=== PATIENT | male | born 1975 | race Caucasian/White ===

== ENCOUNTER → 2018-03-12 07:40 | Outpatient (CLI) | payer MEDICAID, SELFPAY ==
--- NOTE | 2018-03-12 07:44 | CT_ITS ---
CT head/brain wo con HISTORY: ITS.REASON: DIZZINESS ORDERING PHYSICIAN: An Sotomayor PATIENT AGE: 42 years COMPARISON: 05/03/2011 TECHNIQUE: Axial images obtained without contrast. Brain and bone windows reviewed. All CT scans at the facility use one or more dose reduction, viz: automated exposure control, ma/kV adjustment per patient size (including targeted exams where dose is matched to indication, i.e. head), or iterative reconstruction technique. FINDINGS: No midline shift, mass effect, intracranial hemorrhage, hydrocephalus, or extra-axial fluid collection is evident. The calvarium has an unremarkable appearance. No mastoid effusion. No sinus air-fluid levels.. IMPRESSION: Negative CT head without contrast. No acute finding
--- NOTE | 2018-03-12 07:57 | CI_ITS ---
Cerebrovascular Exam Indications: 780.4 Dizziness and giddiness. IMPRESSIONS 1. The bilateral vertebral arteries are patent with normal antegrade flow. 2. Study suggests less than 20% stenosis involving the right internal carotid artery and the left internal carotid artery. 3. Difficult images. Carotid duplex study. Complete study and Doppler flow study including spectral analysis, color and humphrey scale imaging. Height: Height: 188cm. Height: 74in. Weight: Weight: 102.1kg. Weight: 224.5lb. Body mass index: BMI: 28.9kg/m^2. Body surface area: BSA: 2.33m^2. Location: Vascular laboratory. Patient status: Outpatient. Tables: Arterial flow: + +--------+--------+ Location V sys V ed + +--------+--------+ Right CCA - proximal 107cm/s 29.9cm/s + +--------+--------+ Right CCA - distal 77cm/s 33.8cm/s + +--------+--------+ Right ECA 93.7cm/s -------- + +--------+--------+ Right ICA - proximal 61.7cm/s 27.1cm/s + +--------+--------+ Right ICA - mid 64.4cm/s 36.5cm/s + +--------+--------+ Right ICA - distal 75cm/s 38.9cm/s + +--------+--------+ Right vertebral 28.3cm/s -------- + +--------+--------+ Left CCA - proximal 121cm/s 37cm/s + +--------+--------+ Left CCA - distal 93.6cm/s 37cm/s + +--------+--------+ Left ECA 76.1cm/s -------- + +--------+--------+ Left ICA - proximal 64.9cm/s 29.3cm/s + +--------+--------+ Left ICA - mid 91.5cm/s 45.4cm/s + +--------+--------+ Left ICA - distal 93.6cm/s 45.4cm/s + +--------+--------+ Left vertebral 34.6cm/s -------- + +--------+--------+ Velocity ratios: + + + + + + Right, V sys Right, V ed Left, V sys Left, V ed + + + + + + Max ICA/dist CCA 0.97 1.15 1 1.23 + + + + + + (Report amended ) Electronically signed by: Emir Marroquin [id number]
== END ==
PROVIDERS: Family Provider Nurse Practitioner Family; PCP Family Medicine; Visit Provider Family Medicine
DX: R42 Dizziness and giddiness (principal); Z72.0 Tobacco use
CPT/HCPCS: 70450; 93880

== ENCOUNTER → 2020-04-06 09:32 | Outpatient (CLI) | payer MEDICAID, SELFPAY ==
--- NOTE | 2020-04-06 | CA_ITS ---
APPROVED REPORT Exam: Exercise Treadmill Technologist: Debbie Patel, Ht: 6 ft 0 in Wt: 479 lbs BSA: 3.09 m2 HR: 64 bpm BP: 136/91 mmHg Indications: Chest pain Medical History Medications: Meclizine,,,,, ClARITin,,,,, Omepazole,,,,, Stress Test Details Test: Escobar HR Resting HR: 70 bpm Max Heart Rate (APMHR): 178 bpm Max HR Achieved: 135 bpm Target HR (85% APMHR): 151 bpm % of APMHR: 75 Recovery HR: 83 bpm BP Resting BP: 154/99 mmHg Max BP: 184/90 mmHg Recovery BP: 143.0/88.0 mmHg ECG Clinical Exercise duration: 08:39 min Highest Stage Achieved: Exercise capacity: 10.1 METs Stress ECG Conclusion Resting EKG: NSR, right axis deviation, otherwise normal Exercised 8:39 on Escobar Protocol Max HR: 133 % of PM: 75% Max BP: 184/90 MET's: 10.1 Test stopped due to SOA, fatigue Symptoms: Mild bilateral chest and shoulder discomfort with exercise Arrhythmia/Ectopy: Rare PVC ST-T changes: Allowing for motion artifact, the ST response to exercise is within normal limits Conclusion: Normal stress EKG's to the HR achieved (75% on PM). GXT only (no image) Test Summary REST . . . . . . . Sitting REST 04:07 0.0 0.0 70 . 154/ 99 . . Stage 1 01:00 10.0 1.7 82 . . . . Stage 1 02:00 10.0 1.7 88 . . . . Stage 1 03:00 10.0 1.7 91 . 165/ 94 . . Stage 2 01:00 12.0 2.5 94 . . . . Stage 2 02:00 12.0 2.5 100 . . . . Stage 2 03:00 12.0 2.5 103 . . . . Stage 3 01:00 14.0 3.4 115 . . . . Stage 3 02:00 14.0 3.4 125 . 184/ 90 . . Stage 3 02:39 14.0 3.4 133 . 184/ 90 . Stop exercise at 08:39 RECOVERY 01:00 0.0 0.0 124 . . . . RECOVERY 02:00 0.0 0.0 84 . . . . RECOVERY 03:00 0.0 0.0 91 . 167/ 94 . . RECOVERY 04:00 0.0 0.0 96 . 169/ 89 . . RECOVERY 05:00 0.0 0.0 82 . 143/ 88 . . RECOVERY 05:19 0.0 0.0 84 . 143/ 88 . . Electronically signed by : Geovanny Yanez, 04/10/2020 15:08:34
== END ==
PROVIDERS: PCP Nurse Practitioner Family; Visit Provider Nurse Practitioner Family
DX: R07.9 Chest pain, unspecified (principal)
CPT/HCPCS: 93017

== ENCOUNTER → 2020-07-06 10:08 | Outpatient (CLI) | payer MEDICAID, SELFPAY ==
--- NOTE | 2020-07-06 10:08 | MR_ITS ---
PROCEDURE: MR HEAD/BRAIN WO/W CON CLINICAL INDICATION: dizziness, gait imbalance Pt c/o vertigo and gait imbalance x 8 years that is getting worse. COMPARISON: CT HEADWO CT head/brain wo con from 03/12/2018 TECHNIQUE: Routine multiplanar multi echo sequences are performed without and with gadolinium enhancement. FINDINGS: No midline shift, mass effect, intracranial hemorrhage, or hydrocephalus is evident. The cerebellopontine angles, brainstem, and mid brain have an unremarkable appearance. There is no evidence of acute infarction. No enhancing lesions are evident. There is mild cerebellar tonsillar ectopia of approximately 4-5 mm. The 4th ventricle has an unremarkable appearance. Corpus callosum is unremarkable. The pituitary and optic chiasm appear unremarkable. The hippocampal gyri and temporal horns appear negative. There is a defect within the superior cerebellar cortex on the right. This is of questionable clinical significance and may be due to prominent sulcus. There is a 2 cm right maxillary retention cyst and mild mucosal thickening of the ethmoid sinuses. No mastoid effusion. IMPRESSION: 1. No acute intracranial findings. 2. Mild cerebellar tonsillar ectopia Other nonacute findings as described above. Dictated by: Emir Marroquin MD 07/07/2020 19:53 Emir Marroquin MD in [place] 07/07/2020 19:53
--- NOTE | 2020-07-06 10:08 | MR_ITS ---
PROCEDURE: MR ANGIO HEAD WO CON CLINICAL INDICATION: eval posterior circulation Evaluate posterior circulation. Pt c/o severe vertigo x 8 years that is getting worse. COMPARISON: MR MR HEAD/BRAIN WO/W CON from 07/06/2020 TECHNIQUE: Routine multiplanar multi echo sequences are performed without gadolinium enhancement. FINDINGS: The basilar artery is fairly small however, there is persistent circulation bilaterally with the posterior cerebral is a branching from the internal carotid arteries instead of the basilar artery. No aneurysms are evident. No major intracranial occlusive process apparent. No AVM. Single-shot MRV shows discontinuity in the inferior aspect of the superior sagittal sinus possibly artifactual in nature. IMPRESSION: 1. No acute finding MRA of the brain. 2. Persistent circulation regarding the posterior cerebrals arising from the internal carotids on both sides with resultant small basilar artery. Dictated by: Emir Marroquin MD 07/07/2020 19:59 Emir Marroquin MD in [facility] 07/07/2020 19:59
== END ==
PROVIDERS: PCP Nurse Practitioner Family; Visit Provider Specialist
DX: R42 Dizziness and giddiness (principal); R26.89 Other abnormalities of gait and mobility; R45.86 Emotional lability
CPT/HCPCS: 70544; 70553; 93225; 93226; A9576

== ENCOUNTER → 2020-07-12 07:15 | Outpatient (CLI) | payer MEDICAID, SELFPAY ==
--- NOTE | 2020-07-12 10:46 | HMH.TILT ---
Findings:: PROCEDURE: Upright tilt table test REQUESTING PROVIDER: Leslee Bocanegra MD INDICATION: Frequent and recurrent spells of dizziness and near syncope HOME MEDS: omeprazole, loratadine, meclizine, pseudoephedrine/ibuprofen, NO beta blockers PRE-TEST VS: BP 140/90, HR 68 NSR, O2Sat 96% PROCEDURE SUMMARY: Patient was prepped according to protocol then tilted into the upright position at 85 degrees. He remained in the upright position for 45 minutes with no complaints of dizziness, lightheadedness, weakness, near syncope or syncope. He denied any symptoms other than his preexisting headache got a little worse. His heart rate and blood pressure remained stable with minimal variations throughout the test. Lowest HR was 71 bpm, occurring when first placed into the upright position. Highest HR was 96, occurring after 45 minutes upright. Rhythm was normal sinus throughout. After approximately 35 minutes upright, his heart rate slowed abruptly from 96 bpm to 67 bpm. This slowing of the HR was not associated with any arrhythmia or symptoms. His O2sats remained in the mid 90s throughout. COMPLICATIONS: None CONCLUSIONS: Unremarkable Tilt Table Test
== END ==
PROVIDERS: PCP Nurse Practitioner Family; Visit Provider Specialist
DX: R42 Dizziness and giddiness (principal); R26.89 Other abnormalities of gait and mobility; R55 Syncope and collapse; R00.2 Palpitations
CPT/HCPCS: 93660

== ENCOUNTER → 2021-04-10 08:41 | Outpatient (CLI) | payer MEDICAID, SELFPAY ==
--- NOTE | 2021-04-10 08:44 | US_ITS ---
PROCEDURE: US ABDOMEN LIMITED CLINICAL INDICATION: RUQ PAIN COMPARISON: US RUQ US RUQ-(ABD LTD)1ORGAN/QUAD/FU from 01/13/2013 FINDINGS: PANCREAS: Unremarkable. No obvious mass or abnormal fluid collection. No ductal dilatation LIVER: No focal liver lesions demonstrated. Homogeneous echogenicity. No intrahepatic biliary ductal dilatation evident. There is appropriate direction of blood flow within a non dilated portal vein RIGHT KIDNEY: Unremarkable. Normal size and echogenicity. No hydronephrosis GALLBLADDER: No gallstones, gallbladder wall thickening, pericholecystic fluid, or biliary dilatation. IMPRESSION: Unremarkable limited abdominal ultrasound as detailed above disc Dictated by: Emir Marroquin MD 04/10/2021 17:02 Emir Marroquin MD in [facility] 04/10/2021 17:02
== END ==
PROVIDERS: PCP Nurse Practitioner Family; Visit Provider Nurse Practitioner Family
DX: R10.11 Right upper quadrant pain (principal)
CPT/HCPCS: 76705

== ENCOUNTER 2021-06-05 23:44 | Emergency (ER) | payer MEDICAID, SELFPAY ==
[2021-06-05 23:45] VITALS: BP 188/109; PULSE 97; RESP 24; TEMP 36.9; O2SAT 98; BMI 28.8
[2021-06-06 00:01] VITALS: BP 130/81; PULSE 74; RESP 19; O2SAT 98
--- NOTE | 2021-06-06 00:01 | CT_ITS ---
PROCEDURE INFORMATION: Exam: CT Abdomen And Pelvis Without Contrast Exam date and time: 06/06/2021 12:01 AM Age: 46 years old Clinical indication: Abdominal pain; Flank; Right; Prior surgery; Surgery type: Vasectomy; Additional info: R flank pain with n/v TECHNIQUE: Imaging protocol: Computed tomography of the abdomen and pelvis without contrast. Radiation optimization: All CT scans at this facility use at least one of these dose optimization techniques: automated exposure control; mA and/or kV adjustment per patient size (includes targeted exams where dose is matched to clinical indication); or iterative reconstruction. COMPARISON: ABDPELW/O CT ABD PELVIS W/O CONTRAST 02/02/2015 3:14 PM FINDINGS: Lungs: Peripheral wedge-shaped consolidative opacity in the right lung base. Liver: Within normal limits. Gallbladder and bile ducts: Within normal limits. Pancreas: Within normal limits. Spleen: Within normal limits. Adrenal glands: Within normal limits. Kidneys and ureters: No renal or ureteral stones. No hydronephrosis. Stomach and bowel: Within normal limits. Appendix: Appendix is normal. Intraperitoneal space: No free fluid. No pneumoperitoneum. Vasculature: Mild amount of calcified and non-calcified arterial atherosclerosis. No abdominal aortic aneurysm. Lymph nodes: No enlarged lymph nodes by CT criteria. Urinary bladder: Within normal limits. Reproductive: Vasectomy clips noted in the upper scrotum. Reproductive organs are otherwise unremarkable. Bones/joints: No acute osseous abnormality or suspicious bone lesion. Soft tissues: Unremarkable. IMPRESSION: 1. Peripheral wedge-shaped consolidative opacity in the right lung base. Findings are compatible with pulmonary infarct and raise concern for potential pulmonary embolism (indeterminate without intravenous contrast). Consider contrast-enhanced chest CTA for better evaluation. 2. No acute findings in the abdomen or pelvis.
[2021-06-06 00:05] LABS: Basophils # 0.1 K/mm3 (0-0.2); Basophils % 1.2 % (0.1-2.0); Eosinophils # 0.3 K/mm3 (0.0-0.4); Eosinophils % 2.3 % (0.1-12.0); Hematocrit 50.3 % (42.0-52.0); Hemoglobin 16.2 g/dL (14.1-18.0); Lymphocytes # 3.6 K/mm3 (0.7-4.5); Lymphocytes % 31.5 % (10-50); Mean Corpuscular HGB Conc 32.3 g/dL (31.8-35.4); Mean Corpuscular Hemoglobin 30.8 pg (27.0-31.2); Mean Corpuscular Volume 95.2 fl (80-94); Mean Platelet Volume 8.1 fl (7.4-10.4); Monocytes % 8.3 % (1.7-9.3); Neutrophils # 6.5 K/mm3 (1.8-7.8); Neutrophils % 56.7 % (37.0-80.0); Platelet Count 374 K/mm3 (142-424); Red Blood Count 5.28 M/mm3 (4.60-6.20); Red Cell Distribution Width 13.4 % (11.5-17.5); White Blood Count 11.5 K/mm3 (4.8-10.8)
[2021-06-06 00:12] LABS: Alanine Aminotransferase 29 U/L (12-78); Albumin Level 4.4 g/dl (3.5-5.0); Albumin/Globulin Ratio 1.4 (1.1-1.8); Alkaline Phosphatase 105 U/L (38-126); Amylase 80 U/L (30-110); Anion Gap 11.4 mEq/L (5-15); Aspartate Amino Transferase 28 U/L (17-59); Bilirubin,Total 0.4 mg/dl (0.2-1.3); Blood Urea Nitrogen 10 mg/dl (9-20); Calcium 9.1 mg/dl (8.4-10.2); Carbon Dioxide 30 mmol/L (22.0-30.0); Chloride 103 mmol/L (98-107); Creatinine Clearance Estimated 124 mL/min (50-200); Estimated Glomerular Filt Rate 73 ml/min (>60); GFR (African American) 88 ML/MIN (>60); Globulin 3.2 g/dL (1.3-3.2); Glucose 130 mg/dl (74-100); Lipase 120 U/L (23-300); Potassium 3.4 mmoL/L (3.5-5.1); Sodium 141 mmol/L (136-145); Total Protein,Serum 7.6 g/dl (6.3-8.2)
--- NOTE | 2021-06-06 00:17 | PC.NURSE ---
pt to ct via wheelchair
[2021-06-06 00:30] VITALS: BP 126/83; PULSE 65; O2SAT 97
[2021-06-06 00:31] LABS: Procalcitonin 0.063 ng/mL (0.0-2.0)
[2021-06-06 00:38] LABS: Erythrocyte Sedimentation Rate 14 mm/hr (0-15)
--- NOTE | 2021-06-06 00:54 | HMH.EDNVD ---
ED Disposition Clinical Impression: Pulmonary embolism and infarction Disposition: Home, Self-Care Condition on Discharge: Good Instructions: DI for Pulmonary Embolism Additional Instructions: call pcp this am and recheck if needed in the ed- take meds as directed - no tob use and call pul med in am Prescriptions: Rivaroxaban [Xarelto 15mg tablet] 15 mg PO BID #36 tab Transmission Status: Pending to [id number] Referrals: Lesley Gomez [Primary Care Provider] - Chung Mccarthy MD [Physician] - - Critical Care Critical Care Time: No Attestation: On 06/05/21, the high probability of a clinically significant, sudden or life threatening deterioration of the following system(s) required my full and direct attention, intervention and personal management. The time I documented below is in addition to time spent performing reported procedures but includes the following listed in this critical care notation. Medical Decision Making - Medical Records Medical records reviewed: Yes: I reviewed the patient's medical records. - Yobani Inquiry Pt receiving controlled substance: No Vital Signs: 06/05/21 23:45 06/06/21 00:01 06/06/21 00:30 Temperature 98.5 F Temperature Source Oral Pulse Rate 74 65 Pulse Rate [Right] 97 H Respiratory Rate 24 19 Blood Pressure 130/81 126/83 Blood Pressure [Right Arm] 188/109 H Blood Pressure Mean 111 97 Blood Pressure Mean [Right Arm] 135 Blood Pressure Source [Right Arm] Automatic Cuff 02 Sat by Pulse Oximetry 98 98 97 Oxygen Delivery Method Room Air Room Air - Lab Data Lab results reviewed: Yes: I reviewed the patient's lab results. Lab Results 06/05/21 23:56: WBC 11.5 H, RBC 5.28, Hgb 16.2, Hct 50.3, MCV 95.2 H, MCH 30.8, MCHC 32.3, RDW 13.4, Plt Count 374, MPV 8.1, Neut % (Auto) 56.7, Lymph % (Auto) 31.5, [place] % (Auto) 8.3, Eos % (Auto) 2.3, Baso % (Auto) 1.2, Neut # (Auto) 6.5, Lymph # (Auto) 3.6, [place] # (Auto) 1.0, Eos # (Auto) 0.3, Baso # (Auto) 0.1, ESR 14 06/05/21 23:56: Sodium 141, Potassium 3.4 L, Chloride 103, Carbon Dioxide 30, Anion Gap 11.4, BUN 10, Creatinine 1.10, Estimated Creat Clear 124, Estimated GFR 73, Est GFR ( Amer) 88, Glucose 130 H, Calcium 9.1, Total Bilirubin 0.4, AST 28, ALT 29, Alkaline Phosphatase 105, C-Reactive Protein 30.0 H, Total Protein 7.6, Albumin 4.4, Globulin 3.2, Albumin/Globulin Ratio 1.4, Amylase 80, Lipase 120, Procalcitonin 0.063 06/06/21 01:15: Urine Color Yellow, Urine Appearance Clear, Urine pH 6.0, Ur Specific [place] >= 1.030, Urine Protein Negative, Urine Glucose (UA) Negative, Urine Ketones Negative, Urine Blood Negative, Urine Nitrate Negative, Urine Bilirubin Negative, Urine Urobilinogen 0.2, Ur Leukocyte Esterase Negative, Urine WBC Occasional, Urine Bacteria Trace, Urine Mucus 1+ Result diagrams: 06/05/21 23:56 06/05/21 23:56 Orders (Tests/Meds): ED MEDICATIONS Generic Name Dose Route Start Last Admin Trade Name Freq PRN Reason Stop Dose Admin Sodium Chloride 1,000 mls @ 999 mls/hr 06/05/21 23:45 06/05/21 23:57 Sod Chlor 0.9% 1000ml Bag IV 06/06/21 00:45 999 mls/hr .Q1H1M MARILYNN Administration Sodium Chloride 8 ml 06/06/21 00:10 Sodium Chloride 0.9% 10ml Vial IV 07/06/21 00:09 NEEDED PRN dilute pepcid Discontinued Medications Generic Name Dose Route Start Last Admin Trade Name Freq PRN Reason Stop Dose Admin Famotidine 20 mg 06/06/21 00:10 06/06/21 00:17 Famotidine 20mg/2ml Vial IV 06/06/21 00:11 20 mg ONCE ONE Administration Iopamidol 70 ml 06/06/21 01:53 06/06/21 01:53 Iopamidol-370 (76%);100ml Bottle IV 06/06/21 01:54 70 ml ONCE ONE Administration Ketorolac Tromethamine 30 mg 06/05/21 23:54 06/05/21 23:57 Ketorolac 30mg/Ml Vial IV 06/05/21 23:55 30 mg ONCE ONE Administration Metoclopramide HCl 10 mg 06/06/21 00:10 06/06/21 00:17 Metoclopramide Hcl 10mg/2ml Vial IVP 06/06/21 00:11 10 mg ONCE ONE
--- NOTE | 2021-06-06 01:22 | CT_ITS ---
PROCEDURE INFORMATION: Exam: CTA Chest With Contrast Exam date and time: 06/06/2021 1:22 AM Age: 46 years old Clinical indication: Abnormal findings; Abnormal radiologic exam of lung or chest; Patient HX: Smoker; Additional info: Abd abd/pelv CT TECHNIQUE: Imaging protocol: Computed tomographic angiography of the chest with contrast. 3D rendering (Not supervised by radiologist): MIP and/or 3D reconstructed images were created by the technologist. Radiation optimization: All CT scans at this facility use at least one of these dose optimization techniques: automated exposure control; mA and/or kV adjustment per patient size (includes targeted exams where dose is matched to clinical indication); or iterative reconstruction. Contrast material: ISO 370; Contrast volume: 70 ml; Contrast route: INTRAVENOUS (IV); COMPARISON: CR XR CHEST 2V 06/06/2021 1:23 AM FINDINGS: Pulmonary arteries: Acute pulmonary emboli in the right lower lobe with obstructing thrombus in the right lower lobe lateral basal segmental pulmonary artery. Aorta: No aortic aneurysm. No aortic dissection. Lungs: Upper lobe predominant subpleural fibrotic changes. Diffuse ground-glass opacification is likely on account of low lung volumes/expiratory phase imaging. Few calcified pulmonary granulomata, compatible with chronic sequelae of prior granulomatous disease. No appreciable pulmonary edema. Juxtafissural 5 mm noncalcified pulmonary nodule with round morphology along the left interlobar fissure. Peripheral wedge-shaped consolidative opacity in the right lung base. Pleural spaces: No pneumothorax. No pleural effusion. Heart: No cardiomegaly. No significant pericardial effusion. No interventricular septal deviation or abnormal RV:LV ratio to suggest right heart strain. Lymph nodes: Calcified lymph nodes, compatible with chronic sequelae of prior granulomatous disease. Multiple conspicuous subcentimeter noncalcified mediastinal and hilar lymph nodes, nonspecific. No enlarged lymph nodes by CT criteria. Bones/joints: No acute fracture or malalignment. Soft tissues: Unremarkable. IMPRESSION: 1. Acute pulmonary emboli in the right lower lobe with peripheral wedge-shaped consolidation compatible with pulmonary infarct in the lateral basal segment. 2. Noncalcified 5 mm pulmonary nodule along the left interlobar fissure. Current guidelines recommend follow-up CT Chest in 6-12 months. (References: Bradley and Cyndy) REFERENCES: 1. Bradley Patel, et al. Guidelines for Management of Incidental Pulmonary Nodules Detected on CT Images: From the Fleischner Society 2017. Radiology. 2017;284(1):228-243. 2. Cyndy J, et al. Updated Fleischner Society Guidelines for Managing Incidental Pulmonary Nodules: Common Questions and Challenging Scenarios. Radiographics. 2018;38(5):0908-3821.
--- NOTE | 2021-06-06 01:22 | XR_ITS ---
PROCEDURE INFORMATION: Exam: XR Chest Exam date and time: 06/06/2021 1:22 AM Age: 46 years old Clinical indication: Abnormal findings; Abnormal radiologic exam of lung or chest; Patient HX: Smoker; Additional info: Abd CT a/p TECHNIQUE: Imaging protocol: XR of the chest. Views: 2 views. COMPARISON: CR CXR2V XR chest 2V 11/26/2018 7:03 PM FINDINGS: Lungs: No appreciable pulmonary edema. Consolidative opacity seen on same-day CT abdomen/pelvis is not appreciated. Pleural spaces: No pleural effusion. No pneumothorax. Heart/Mediastinum: Cardiomediastinal silhouette is within normal limits. The Calcified lymph nodes, compatible with chronic sequelae of prior granulomatous disease. Bones/joints: No acute osseous abnormality. Soft tissues: Unremarkable. IMPRESSION: No radiographic evidence of acute cardiopulmonary disease.
--- NOTE | 2021-06-06 01:23 | PC.NURSE ---
pt refused covid swab despite education
--- NOTE | 2021-06-06 01:31 | PC.NURSE ---
pt to ct for cta-pe
[2021-06-06 01:33] LABS: Microscopic, Urine URINE MICROSCOPIC (MICROSCOPIC)
[2021-06-06 01:34] LABS: Appearance,Urine CLEAR (Clear); Bilirubin,Urine Negative (Negative); Blood, Urine Negative (Negative); Color,Urine YELLOW (Yellow); Glucose,Urine (UA) Negative (Negative); Ketones,Urine Negative (Negative); Leukocyte Esterase,Urine Negative (Negative); Nitrate,Urine Negative (Negative); Protein,Urine Negative (Negative); Specific Gravity, Urine >= 1.030 (1.005-1.030); Urobilinogen,Urine 0.2 EU/dl (0.2)
[2021-06-06 02:03] LABS: Bacteria,Urine Trace /lpf; Mucus,Urine 1+ /lpf; WBC,Urine Occasional #/hpf (0-3)
[2021-06-06 03:29] VITALS: BP 156/92; PULSE 93; RESP 18; TEMP 36.9; O2SAT 100
[2021-06-06 03:44] LABS: Coronavirus 19, PCR Not Detected (NotDetected); Influenza A, PCR Not Detected (NotDetected); Influenza B, PCR Not Detected (NotDetected)
== END 2021-06-06 03:40 | disposition home or self-care (01) ==
PROVIDERS: Emergency Provider Emergency Medicine; PCP Nurse Practitioner Family
DX: I26.99 Other pulmonary embolism without acute cor pulmonale (principal); F33.1 Major depressive disorder, recurrent, moderate; E11.9 Type 2 diabetes mellitus without complications; Z87.891 Personal history of nicotine dependence; Z88.0 Allergy status to penicillin
CPT/HCPCS: 71046; 71275; 74176; 80053; 81001; 82150; 83690; 84145; 85025; 85651; 86140; 96365; 99283; C9803; J2405; Q9967; U0003; U0005

== ENCOUNTER → 2021-06-09 11:00 | Outpatient (CLI) | payer MEDICAID, SELFPAY ==
[2021-06-09 12:22] LABS: D-Dimer 0.93 ug/mL (0.0-0.5)
== END ==
PROVIDERS: Visit Provider Internal Medicine Pulmonary Disease
DX: R79.1 Abnormal coagulation profile (principal); R06.09 Other forms of dyspnea
CPT/HCPCS: 36415; 85378

== ENCOUNTER 2021-06-11 10:13 | Emergency (ER) | payer MEDICAID, SELFPAY ==
--- NOTE | 2021-06-11 10:26 | XR_ITS ---
PROCEDURE INFORMATION: Exam: XR Chest Exam date and time: 06/11/2021 10:26 AM Age: 46 years old Clinical indication: Cough TECHNIQUE: Imaging protocol: XR of the chest. Views: 1 view. COMPARISON: CR XR CHEST 2V 06/06/2021 1:23 AM FINDINGS: Lungs: Right basilar subsegmental atelectasis. Pleural spaces: Adjacent small right pleural effusion. Heart/Mediastinum: Unremarkable. No cardiomegaly. Bones/joints: Unremarkable. IMPRESSION: Right basilar subsegmental atelectasis. Adjacent small right pleural effusion.
[2021-06-11 10:49] VITALS: BP 149/99; PULSE 73; RESP 18; TEMP 36.7; O2SAT 96; BMI 27.7
--- NOTE | 2021-06-11 10:58 | HMH.EDGENADL ---
ED Disposition Clinical Impression: Right middle lobe pneumonia Qualifiers: Pneumonia type: due to unspecified organism Qualified Code(s): J18.9 - Pneumonia, unspecified organism Disposition: Home, Self-Care Condition on Discharge: Good Instructions: DI for Pneumonia -- Adult Prescriptions: Doxycycline Monohydrate [Doxycycline [place] 100mg Tab] 100 mg PO Q12 #20 tab Transmission Status: Pending to [id number] Referrals: Lesley Gomez [Primary Care Provider] - - Critical Care Critical Care Time: No Attestation: On 06/11/21, the high probability of a clinically significant, sudden or life threatening deterioration of the following system(s) required my full and direct attention, intervention and personal management. The time I documented below is in addition to time spent performing reported procedures but includes the following listed in this critical care notation. Medical Decision Making - Medical Records Medical records reviewed: Yes: I reviewed the patient's medical records. - Yobani Inquiry Pt receiving controlled substance: No Vital Signs: 06/11/21 10:49 06/11/21 11:00 Temperature 98.1 F Temperature Source Oral Pulse Rate 67 Pulse Rate [Left Radial] 73 Respiratory Rate 18 Blood Pressure 143/91 H Blood Pressure [Right Arm] 149/99 H Blood Pressure Mean [Right Arm] 115 Blood Pressure Source [Right Arm] Automatic Cuff Blood Pressure Position [Right Arm] Sitting 02 Sat by Pulse Oximetry 96 98 Oxygen Delivery Method Room Air - Lab Data Lab Results 06/11/21 11:00: WBC 6.5, RBC 5.02, Hgb 15.9, Hct 46.1, MCV 91.9, MCH 31.6 H, MCHC 34.4, RDW 13.2, Plt Count 391, MPV 8.0, Neut % (Auto) 58.7, Lymph % (Auto) 29.5, [place] % (Auto) 7.3, Eos % (Auto) 3.4, Baso % (Auto) 1.1, Neut # (Auto) 3.8, Lymph # (Auto) 1.9, [place] # (Auto) 0.5, Eos # (Auto) 0.2, Baso # (Auto) 0.1 06/11/21 11:00: PT 11.3, INR 1.00, APTT 29.2 06/11/21 11:00: Sodium 143, Potassium 4.3, Chloride 104, Carbon Dioxide 32 H, Anion Gap 11.3, BUN 7 L, Creatinine 0.80, Estimated Creat Clear 163, Estimated GFR 105, Est GFR ( Amer) 127, Glucose 99, Calcium 9.3, Total Bilirubin 0.3, AST 35, ALT 43, Alkaline Phosphatase 133 H, Troponin I < 0.01, Total Protein 7.6, Albumin 4.5, Globulin 3.1, Albumin/Globulin Ratio 1.5 Result diagrams: 06/11/21 11:00 06/11/21 11:00 Orders (Tests/Meds): ORDERS Category Date Time Status Troponin I Q3H Lab 06/11/21 13:30 Ordered Troponin I Q3H Lab 06/11/21 16:30 Ordered - Radiology Data #1 Image(s): Chest Image Reviewed: Yes I reviewed the patient's radiology results, Yes I reviewed the patient's radiology image, Yes I have reviewed radiologist's interpretation IMPRESSION: Right basilar subsegmental atelectasis. Adjacent small right pleural effusion. - Reevaluation(s) Time: 11:35 Reevaluation #1: On reevaluation, the patient is feeling much better. There is no hypoxia or respiratory distress. Patient has not had any further hemoptysis while in the emergency department. Patient's hemoglobin appears to be normal. I did instruct him to discontinue his Motrin while continuing his anticoagulation. He also has a small effusion developing on the right side, likely secondary to the infarct, however there is concern for possible pneumonia. Patient be placed on short course antibiotics. Given strict return precautions. Verbalized understanding. Medical Decision Narrative: 46-year-old male presented to the emergency department with some cough and very minor hemoptysis. Patient is hemodynamically stable at this time. No hypoxia or respiratory distress. Do believe is likely secondary to bronchitis with his recent start of Xarelto and taking Motrin. I did explain to the patient that he should discontinue the Motrin while he is taking the novel anticoagulant. Work-up will be initiated. General Adult HPI - General Chief complaint: GI Bleed Stated complaint: spittin
[2021-06-11 11:00] VITALS: BP 143/91; PULSE 67; O2SAT 98
[2021-06-11 11:13] LABS: Chloride 104 mmol/L (98-107); Potassium 4.3 mmoL/L (3.5-5.1); Sodium 143 mmol/L (136-145)
[2021-06-11 11:14] LABS: Basophils # 0.1 K/mm3 (0-0.2); Basophils % 1.1 % (0.1-2.0); Eosinophils # 0.2 K/mm3 (0.0-0.4); Eosinophils % 3.4 % (0.1-12.0); Hematocrit 46.1 % (42.0-52.0); Hemoglobin 15.9 g/dL (14.1-18.0); Lymphocytes # 1.9 K/mm3 (0.7-4.5); Lymphocytes % 29.5 % (10-50); Mean Corpuscular HGB Conc 34.4 g/dL (31.8-35.4); Mean Corpuscular Hemoglobin 31.6 pg (27.0-31.2); Mean Corpuscular Volume 91.9 fl (80-94); Monocytes # 0.5 K/mm3 (0.1-1.0); Monocytes % 7.3 % (1.7-9.3); Neutrophils # 3.8 K/mm3 (1.8-7.8); Neutrophils % 58.7 % (37.0-80.0); Platelet Count 391 K/mm3 (142-424); Red Blood Count 5.02 M/mm3 (4.60-6.20); Red Cell Distribution Width 13.2 % (11.5-17.5); White Blood Count 6.5 K/mm3 (4.8-10.8)
[2021-06-11 11:16] LABS: Alanine Aminotransferase 43 U/L (12-78); Albumin Level 4.5 g/dl (3.5-5.0); Albumin/Globulin Ratio 1.5 (1.1-1.8); Alkaline Phosphatase 133 U/L (38-126); Anion Gap 11.3 mEq/L (5-15); Aspartate Amino Transferase 35 U/L (17-59); Bilirubin,Total 0.3 mg/dl (0.2-1.3); Blood Urea Nitrogen 7 mg/dl (9-20); Carbon Dioxide 32 mmol/L (22.0-30.0); Creatinine Clearance Estimated 163 mL/min (50-200); Estimated Glomerular Filt Rate 105 ml/min (>60); GFR (African American) 127 ML/MIN (>60); Globulin 3.1 g/dL (1.3-3.2); Total Protein,Serum 7.6 g/dl (6.3-8.2)
[2021-06-11 11:17] LABS: Calcium 9.3 mg/dl (8.4-10.2); Glucose 99 mg/dl (74-100)
[2021-06-11 11:18] LABS: Activated Partial Thrombo Time 29.2 seconds (22.8-30.6); Prothrombin Time 11.3 seconds (10.1-12.5)
[2021-06-11 11:33] LABS: Troponin I < 0.01 ng/ml (0.00-0.034)
[2021-06-11 11:44] VITALS: BP 151/93; PULSE 68; RESP 18; TEMP 36.7; O2SAT 98
== END 2021-06-11 11:45 | disposition home or self-care (01) ==
PROVIDERS: Emergency Provider Emergency Medicine; PCP Nurse Practitioner Family
DX: J18.9 Pneumonia, unspecified organism (principal); Z86.711 Personal history of pulmonary embolism; Z79.01 Long term (current) use of anticoagulants; F33.1 Major depressive disorder, recurrent, moderate; Z88.0 Allergy status to penicillin; Z87.891 Personal history of nicotine dependence
CPT/HCPCS: 36415; 71045; 80053; 84484; 85025; 85610; 85730; 99282

== ENCOUNTER → 2021-06-14 08:29 | Outpatient (CLI) | payer MEDICAID, SELFPAY ==
--- NOTE | 2021-06-14 08:31 | CA_ITS ---
APPROVED REPORT Bilateral Lower Extremity Venous Study for DVT. 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 Indications Current Smoker Ridht sided pulmonary emoli 06/05/21, unknown Covid history Vein Imaging CFV (R): compressive, spontaneous, phasic, augmentation SFJ (R): compressive, spontaneous, phasic, augmentation FEM (R): compressive, spontaneous, phasic, augmentation POP (R): compressive, spontaneous, phasic, augmentation PTV (R): compressive, spontaneous, phasic, augmentation GSV (R): compressive, spontaneous, phasic, augmentation SSV (R): compressive, spontaneous, phasic, augmentation Peroneals (R):compressive, spontaneous, phasic, augmentation GAS (R): compressive, spontaneous, phasic, augmentation CFV (L): compressive, spontaneous, phasic, augmentation SFJ (L): compressive, spontaneous, phasic, augmentation FEM (L): compressive, spontaneous, phasic, augmentation POP (L): compressive, spontaneous, phasic, augmentation PTV (L): compressive, spontaneous, phasic, augmentation GSV (L): compressive, spontaneous, phasic, augmentation SSV (L): compressive, spontaneous, phasic, augmentation Peroneals (L):compressive, spontaneous, phasic, augmentation GAS (L): compressive, spontaneous, phasic, augmentation Findings Color flow duplex demonstrates no evidence of DVT of the following bilateral lower extremity Veins:Common Femoral Vein, Femoral Vein, Popliteal Vein, Posterior Tibial Veins, Peroneal Veins. Negative for DVT. Conclusion Negative for DVT. Electronically signed by : Emir Marroquin MD 06/14/2021 19:32:53
== END ==
PROVIDERS: PCP Nurse Practitioner Family; Visit Provider Internal Medicine Pulmonary Disease
DX: I26.99 Other pulmonary embolism without acute cor pulmonale (principal)
CPT/HCPCS: 93970

== ENCOUNTER → 2021-06-19 14:29 | Outpatient (CLI) | payer MEDICAID, SELFPAY ==
[2021-07-20 15:24] LABS: Factor II, DNA Analysis Negative
== END ==
PROVIDERS: Visit Provider Internal Medicine Medical Oncology
DX: I26.99 Other pulmonary embolism without acute cor pulmonale (principal)
CPT/HCPCS: 36415; 81240; 81241

== ENCOUNTER → 2021-07-12 12:34 | Outpatient (CLI) | payer MEDICAID, SELFPAY ==
[2021-07-12 13:25] VITALS: PULSE 84; PULSE 87
== END ==
PROVIDERS: PCP Nurse Practitioner Family; Visit Provider Internal Medicine Pulmonary Disease
DX: R06.09 Other forms of dyspnea (principal)
CPT/HCPCS: 94060; 94640; 94727; 94729

== ENCOUNTER → 2021-07-24 14:04 | Outpatient (CLI) | payer MEDICAID, SELFPAY ==
[2021-07-24 15:04] LABS: C-Reactive Protein 4.4 mg/L (0-4)
[2021-07-26 16:37] LABS: Cytoplasmic (C-ANCA) <1:20 titer (Neg:<1:20); Perinuclear (P-ANCA) <1:20 titer (Neg:<1:20)
[2021-07-26 22:18] LABS: Anti-Cyclic Citrullinated Pept 6 units (0-19)
[2021-08-03 14:11] LABS: Aspergillus fumigatus IgG Negative (Negative); Pigeon Serum Abs Negative (Negative)
[2021-08-31 13:41] LABS: Antinuclear Antibodies (ANA) NEGATIVE
== END ==
PROVIDERS: Visit Provider Internal Medicine Pulmonary Disease
DX: R06.00 Dyspnea, unspecified (principal); J84.9 Interstitial pulmonary disease, unspecified; J98.4 Other disorders of lung; J44.9 Chronic obstructive pulmonary disease, unspecified
CPT/HCPCS: 36415; 86038; 86140; 86200; 86225; 86235; 86256; 86331; 86431; 86602; 86606; 86609

== ENCOUNTER → 2021-08-28 08:19 | Outpatient (CLI) | payer MEDICAID, SELFPAY ==
--- NOTE | 2021-08-28 08:20 | CT_ITS ---
FINAL REPORT TECHNIQUE: Axial imaging of the chest was obtained with inspiration, expiration and prone inspiration. Reformatted images were also obtained and reviewed. CLINICAL HISTORY: . lung nodule COMPARISON: 06/06/2021 FINDINGS: There is interval improvement in mild mediastinal and hilar adenopathy. Mild bilateral apical scarring/fibrosis is seen. There is a calcified granuloma in the left upper lobe. 4 mm nodule at the left major fissure is stable. Several right lower lobe calcified granulomas are noted. There has also been interval improvement in the right lung base wedge-shaped opacity with persistent 6 mm nodular opacity in this region which may represent scarring. There is no evidence of bronchiectasis or interstitial fibrosis. There is no significant emphysematous change. IMPRESSION: Improved right lower lobe, wedge-shaped opacity with persistent 6 mm nodular opacity in this region which may represent scarring. No bronchiectasis or significant interstitial fibrosis. Interval improvement of mild mediastinal and hilar adenopathy. Reviewed, Interpreted and Dictated by Aldo Baugh III, MD Transcribed by Marilyn Yancey Authenticated by Aldo Baugh III, MD on 08/28/2021 12:34:56 PM [facility]
== END ==
PROVIDERS: PCP Nurse Practitioner Family; Visit Provider Internal Medicine Pulmonary Disease
DX: R06.02 Shortness of breath (principal)
CPT/HCPCS: 71250

== ENCOUNTER → 2021-09-08 09:35 | Outpatient (CLI) | payer MEDICAID, SELFPAY | PROVIDERS: PCP Nurse Practitioner Family; Visit Provider Internal Medicine Pulmonary Disease | DX: R94.2 Abnormal results of pulmonary function studies (principal) | CPT/HCPCS: 94060 ==

== ENCOUNTER → 2021-11-15 08:43 | Outpatient (CLI) | payer MEDICAID, SELFPAY ==
--- NOTE | 2021-11-15 08:45 | US_ITS ---
FINAL REPORT CLINICAL HISTORY: right testicular pain FINDINGS: Ultrasound images of the testicles were obtained bilaterally. Color Doppler images were obtained. The right testicle measures 2.5 x 3.9 x 2.9 cm. The left testicle measures 2.3 x 4.0 x 3.2 cm. Arterial flow is identified bilaterally. No intratesticular masses are identified. IMPRESSION: No evidence of testicular torsion or mass. Reviewed, Interpreted and Dictated by Aldo Baugh III, MD Transcribed by Nicki Grayson Authenticated by Aldo Baugh III, MD on 11/15/2021 11:38:[address] [facility]
== END ==
PROVIDERS: PCP Nurse Practitioner Family; Visit Provider Nurse Practitioner Family
DX: N50.82 Scrotal pain (principal)
CPT/HCPCS: 76870

== ENCOUNTER → 2022-05-22 07:42 | Outpatient (CLI) | payer MEDICAID, SELFPAY ==
--- NOTE | 2022-05-22 07:47 | CT_ITS ---
FINAL REPORT TECHNIQUE: Thin section axial CT images of the temporal bones were obtained. Sagittal and coronal reformatted images were also obtained. This study was performed with techniques to keep radiation doses as low as reasonably achievable (ALARA). Individualized dose reduction techniques using automated exposure control or adjustment of mA and/or kV according to the patient''s size were employed. CLINICAL HISTORY: VERTIGO FINDINGS: Right temporal bone: The internal auditory canal has an unremarkable appearance. The inner ear structures are unremarkable. The external auditory canal has an unremarkable appearance. There is mild mucosal thickening of the right middle ear cavity. The ossicles are intact. There is opacification of several mastoid air cells. No bony mass is identified. Left temporal bone: The internal auditory canal has an unremarkable appearance. The inner ear structures are unremarkable. The external auditory canal has an unremarkable appearance. No abnormality is identified of the middle ear cavity. The ossicles are intact. The mastoid air cells and mastoid antrum have an unremarkable appearance. No bony mass is identified. IMPRESSION: Mild right mastoiditis and possible otitis media. Reviewed, Interpreted and Dictated by Aldo Baugh III, MD Transcribed by Terri Ramirez Authenticated and [facility]
== END ==
PROVIDERS: PCP Nurse Practitioner Family
DX: R42 Dizziness and giddiness (principal)
CPT/HCPCS: 70480

== ENCOUNTER → 2022-06-28 09:30 | Outpatient (CLI) | payer MEDICAID, SELFPAY | PROVIDERS: PCP Nurse Practitioner Family; Visit Provider Internal Medicine Pulmonary Disease | DX: G70.9 Myoneural disorder, unspecified (principal); R06.02 Shortness of breath | CPT/HCPCS: 94060 ==

== ENCOUNTER 2023-05-01 07:54 | Outpatient (RCR) | payer MEDICARE, MEDICAID, SELFPAY | END 2023-05-01 07:55 | disposition home or self-care (01) | LOC: OT 07:54 | PROVIDERS: PCP Nurse Practitioner Family; Visit Provider Orthopaedic Surgery Adult Reconstructive Orthopaedic Surgery | DX: M77.01 Medial epicondylitis, right elbow (principal) | CPT/HCPCS: 97165 ==

== ENCOUNTER 2023-10-07 09:38 | Outpatient (CLI) | payer MEDICARE, MEDICAID, SELFPAY ==
--- NOTE | 2023-10-07 09:45 | US_ITS ---
FINAL REPORT TECHNIQUE: Ultrasound images of the testicles were obtained bilaterally. Color Doppler images were obtained. CLINICAL HISTORY: PAIN IN SCROTUM COMPARISON: 11/15/2021 FINDINGS: The right testicle measures 4.7 cm in length. There is heterogeneous echotexture of the right testicle is of uncertain significance. This does appear similar to the prior exam. There is a small right hydrocele. There is increased vascularity in the right epididymis. Right epididymitis is not excluded. Arterial flow is identified. The left testicle measures 4.5 cm in length and appears normal. There is a 4 mm epididymal cyst or spermatocele in the upper left epididymis. Arterial flow is identified. IMPRESSION: No evidence of testicular mass or torsion. Increased vascularity in the right epididymis. Right epididymitis is not excluded. 4 mm epididymal cyst or spermatocele in the upper left epididymis. Reviewed, Interpreted and Dictated by Aldo Baugh III, MD Transcribed by Nicki Grayson Authenticated and [facility]
== END 2023-10-07 23:59 ==
LOC: RAD 09:39
PROVIDERS: PCP Nurse Practitioner Family; Visit Provider Nurse Practitioner Family
DX: N50.82 Scrotal pain (principal)
CPT/HCPCS: 76870

== ENCOUNTER 2023-12-19 08:14 | Outpatient (CLI) | payer MEDICARE, SELFPAY ==
--- NOTE | 2023-12-19 08:20 | XR_ITS ---
FINAL REPORT CLINICAL HISTORY: LT SIDED SCIATICA COMPARISON: None FINDINGS: AP and lateral views of the lumbar spine were obtained. There is no prior exam for comparison. There is no acute fracture or malalignment. Vertebral body height is preserved. There is moderate hypertrophic change at the T11-12 and T12-L1 levels. No acute paraspinal abnormality. IMPRESSION: Moderate hypertrophic change at the T11-12 and T12-L1 levels. Otherwise unremarkable lumbar spine series. Reviewed, Interpreted and Dictated by Evaristo Subramanian MD Transcribed by Anaid Perkins Authenticated and [facility]
== END 2023-12-19 23:59 | disposition home or self-care (01) ==
LOC: RAD 08:15
PROVIDERS: PCP Nurse Practitioner Family; Visit Provider Nurse Practitioner Family
DX: M54.32 Sciatica, left side (principal)
CPT/HCPCS: 72100

== ENCOUNTER 2023-12-31 07:12 | Outpatient (CLI) | payer MEDICARE, SELFPAY ==
--- NOTE | 2023-12-31 07:20 | XR_ITS ---
FINAL REPORT CLINICAL HISTORY: RT SHOULDER PAIN FINDINGS: Right shoulder Three views were obtained. There is no acute fracture or dislocation. There is mild AC joint degenerative change. No soft tissue abnormality is identified. IMPRESSION: No acute process. Reviewed, Interpreted and Dictated by Aldo Baugh III, MD Transcribed by Terri Ramirez Authenticated and . [facility]
== END 2023-12-31 23:59 | disposition home or self-care (01) ==
LOC: RAD 07:13
PROVIDERS: PCP Nurse Practitioner Family; Visit Provider Nurse Practitioner Family
DX: M25.511 Pain in right shoulder (principal)
CPT/HCPCS: 73030

== ENCOUNTER 2024-01-30 21:01 | Emergency (ER) | payer MEDICARE, SELFPAY ==
[2024-01-30] VITALS (11 sets, daily range): BP systolic 143–169; BP diastolic 87–108; PULSE 66–78; RESP 14–21; TEMP 37.1; O2SAT 94–98; BMI 30.8
--- NOTE | 2024-01-30 21:10 | ECG_ITS ---
APPROVED REPORT Exam: Resting ECG HR:67 bpm ECG Measurements Heart Rate 67 AXES IL 177 P 67 QRSd 120 QRS 30 QT 408 T 51 QTc 424 Conclusion SINUS RHYTHM Electronically signed by : PAVITHRA MAIN, 01/30/2024 22:04:21
--- NOTE | 2024-01-30 21:30 | XR_ITS ---
PROCEDURE INFORMATION: Exam: XR Chest Exam date and time: 01/30/2024 9:44 PM Age: 48 years old Clinical indication: Wheezing; Additional info: Wheezing, near syncope TECHNIQUE: Imaging protocol: Radiologic exam of the chest. Views: 1 view. COMPARISON: CT HR CHEST X3 08/28/2021 8:59 AM FINDINGS: Lungs: Unremarkable. No consolidation. Pleural spaces: Unremarkable. No pleural effusion. No pneumothorax. Heart/Mediastinum: Unremarkable. No cardiomegaly. Bones/joints: Unremarkable. IMPRESSION: No acute findings.
[2024-01-30 21:37] LABS: Basophils # 0.4 K/mm3 (0-0.2); Basophils % 4.1 % (0.1-2.0); Chloride 106 mmol/L (98-107); Eosinophils # 0.2 K/mm3 (0.0-0.4); Eosinophils % 2.5 % (0.1-12.0); Hematocrit 44.7 % (42.0-52.0); Hemoglobin 15.1 g/dL (14.1-18.0); Lymphocytes # 2.6 K/mm3 (0.7-4.5); Mean Corpuscular HGB Conc 33.9 g/dL (31.8-35.4); Mean Corpuscular Hemoglobin 30.6 pg (27.0-31.2); Mean Corpuscular Volume 90.2 fl (80-94); Mean Platelet Volume 8.3 fl (7.4-10.4); Monocytes # 0.8 K/mm3 (0.1-1.0); Monocytes % 8.6 % (1.7-9.3); Neutrophils % 55.9 % (37.0-80.0); Platelet Count 251 K/mm3 (142-424); Red Blood Count 4.95 M/mm3 (4.60-6.20); White Blood Count 8.9 K/mm3 (4.8-10.8)
[2024-01-30 21:38] LABS: Potassium 3.5 mmoL/L (3.5-5.1); Sodium 139 mmol/L (136-145)
[2024-01-30 21:40] LABS: Alanine Aminotransferase 27 U/L (12-78); Aspartate Amino Transferase 29 U/L (17-59); Blood Urea Nitrogen 9 mg/dl (9-20); Creatinine Clearance Estimated 118 mL/min (50-200); Estimated Glomerular Filt Rate 65 ml/min (>60); GFR (African American) 79 ML/MIN (>60)
[2024-01-30 21:41] LABS: Albumin Level 4.1 g/dl (3.5-5.0); Albumin/Globulin Ratio 1.4 (1.1-1.8); Alkaline Phosphatase 77 U/L (38-126); Anion Gap 6.5 mEq/L (5-15); Bilirubin,Total 0.4 mg/dl (0.2-1.3); Calcium 8.9 mg/dl (8.4-10.2); Carbon Dioxide 30 mmol/L (22.0-30.0); Glucose 107 mg/dl (74-100); Total Protein,Serum 7.1 g/dl (6.3-8.2)
[2024-01-30] MEDS: IPRATROPIUM/ALBUTEROL 3 ML NEB 6 ML IH (21:41)
[2024-01-30] MEDS: DEXAMETHASONE 4MG/ML 1ML VIAL 10 MG IV (21:41)
[2024-01-30] MEDS: IRBESARTAN 75MG TABLET 75 MG PO (21:46)
[2024-01-30 21:51] LABS: NT Pro Brain Natriuretic Pep. 47.5 pg/mL (0-125)
[2024-01-30 21:53] LABS: Troponin I < 0.01 ng/ml (0.00-0.034)
--- NOTE | 2024-01-30 22:05 | ED_ITS ---
Discharge Plan Disposition Patient Disposition: Home, Self-Care Prescriptions Prescriptions: New candesartan 16 mg tablet 16 mg PO DAILY Qty: 30 5RF No Action omeprazole 40 mg capsule,delayed release(DR/EC) 40 mg PO DAILY Patient Comments: TAKE 1 CAPSULE BY MOUTH ONCE DAILY meclizine 12.5 mg tablet 12.5 mg PO BID loratadine 10 mg capsule 10 mg PO DAILY Xarelto 20 mg tablet See Rx Instructions .ROUTE .COMPLEX Qty: 90 0RF Dose Instruction: TAKE 1 TABLET BY MOUTH ONCE DAILY IN THE EVENING WITH MEAL Rx Instructions: TAKE 1 TABLET BY MOUTH ONCE DAILY IN THE EVENING WITH MEAL Referrals Follow up/Referrals: Lesley Gomez [Primary Care Provider] - See instructions Activity Restrictions/Add. Instructions Additional Instructions/Restrictions: Call your family doctor to establish care for this visit to the emergency department and schedule follow-up within 48 hours to ensure improvement. If you have any worsening of your condition or any other concerning signs or symptoms, return to the emergency department or your primary care doctor for further evaluation. Candesartan 16 mg each night for control blood pressure. Clinical Impressions Clinical Impression: Near syncope, Hypertension Discharge ED Provider: Jonathan White HPI <Frank Dean MD - Last Filed: 01/30/24 22:44> General Chief Complaint: Dizziness Stated Complaint: Headache, dizzy, hot flashes Time Seen by Provider: 01/30/24 21:05 Mode of Arrival: Ambulatory Source of Information: Patient Limitations: No Limitations Description of Symptoms (Recalled from ER Triage Doc. by RN): Pt to ED with c/o dizziness, nausea, and diaphoresis. pt states she just doesnt feel right. Pt reports hx of PE, on zarelto, and HLD. History of Present Illness HPI narrative: Please note that above description of symptoms, in this electronic medical record under categorization of recalled from ER triage doctor by RN are reflective of an initial nursing assessment, however, is not reflective of my full history and physical exam that was personally taken and clarified. Consequentially, this preceding description of symptoms, which may include the patient's categorized chief complaint in the EMR, do not reflect my personal clinical impression, and the ultimate description of history of present illness and patient stated complaints should be deferred to this section of the note. Unless stated otherwise or congruent with this section of the note, additional signs, symptoms, or incongruence should be interpreted as inaccurate with my clinical impression. Related Data Home Medications Medication Instructions Recorded Confirmed loratadine 10 mg capsule 10 mg PO DAILY allergies 07/04/20 06/11/23 meclizine 12.5 mg tablet 12.5 mg PO BID Pain 07/04/20 06/11/23 omeprazole 40 mg capsule,delayed 40 mg PO DAILY GERD 07/04/20 06/11/23 release Previous Rx's Medication Instructions Recorded rivaroxaban 20 mg tablet (Xarelto) See Rx Instructions .Route 01/24/24 .COMPLEX #90 tabs candesartan 16 mg tablet 16 mg PO DAILY #30 tabs 01/30/24 Allergies Allergy/AdvReac Type Severity Reaction Status Date / Time amoxicillin [AMOXICILLIN] Allergy Unknown Unknown Verified 06/11/23 10:01 allergy reaction Penicillins [PENICILLINS] Allergy Unknown Unknown Verified 06/11/23 10:01 allergy reaction PFSH <Frank Dean MD - Last Filed: 01/30/24 22:44> [facility] Disclaimer: The information contained in this section may have been updated after the patient was seen, as this information can be updated by other users. Medical History (Updated 01/30/24 @ 22:41 by Frank Dean MD) Chronic anticoagulation History of pulmonary embolism Restrictive lung disease Dyspnea on exertion Single subsegmental pulmonary embolism without acute cor pulmonale Shortness of breath Pulmonary embolism and infarction Surgical History History of colonoscopy History of esophagogastroduodenoscopy (EGD) Family History Other Cancer Social History Smoking Status: Current every day smoker tobacco type: cigarettes packs per day: 1 alcohol intake: never substance use type: marijuana current occupational status: unemployed Travel in the last 8 weeks: None household members: children housing: house <Frank Dean MD - Last Filed: 01/30/24 22:44> ROS Obtained: Yes All systems reviewed & no additional complaints except as documented Physical Exam <Frank Dean MD - Last Filed: 01/30/24 22:44> General General appearance: alert and anxious Neck Neck exam: Present trachea midline Chest Chest inspection: Present normal inspection and symmetric chest wall rise Respiratory Respiratory exam: Present normal lung sounds bilaterally and wheezes (Diffuse bilateral); Absent respiratory distress, stridor, accessory muscle use or prolonged expiratory phase Cardiovascular Cardiovascular exam: Present regular rate and normal rhythm Extremities Exam Extremities exam: Absent edema Neurological Exam Neurological exam: Present alert, oriented X3 and CN II-XII intact Skin Skin exam: Present warm and dry; Absent cyanosis, diaphoresis or pallor HEART Score <Frank Dean MD - Last Filed: 01/30/24 22:44> HEART Score HEART Score assessment performed?: Yes HEART Score: 2 <Jonathan White MD - Last Filed: 01/31/24 00:06> HEART Score History (anamnesis): Slightly suspicious ECG: Normal Age: 45-65 years Risk factors: 1-2 risk factors Troponin: </= normal limit HEART Score: 2 Critical Care <Frank Dean MD - Last Filed: 01/30/24 22:44> Critical Care Time Critical Care Time: No Medical Decision Making <Frank Dean MD - Last Filed: 01/30/24 22:44> Medical Records Medical records reviewed: Yes I reviewed the patient's medical records. Yobani Inquiry Pt receiving controlled substance: No Yobani was queried for this patient: No Vital Signs Vital Signs: 01/30/24 21:02 01/30/24 21:15 01/30/24 21:30 Temperature 98.8 F Temperature Source Oral Pulse Rate 78 73 Pulse Rate [Left Radial] 72 Respiratory Rate 18 18 15 Blood Pressure 165/107 H 161/108 H Blood Pressure [Right Arm] 169/100 H Blood Pressure Mean [Right Arm] 123 Blood Pressure Source [Right Arm] Automatic Cuff Blood Pressure Position [Right Arm] Sitting 02 Sat by Pulse Oximetry 98 98 98 Oxygen Delivery Method Room Air Room Air Room Air 01/30/24 21:41 01/30/24 21:41 01/30/24 21:41 Temperature Temperature Source Pulse Rate 71 67 Pulse Rate [Left Radial] Respiratory Rate Blood Pressure Blood Pressure [Right Arm] Blood Pressure Mean [Right Arm] Blood Pressure Source [Right Arm] Blood Pressure Position [Right Arm] 02 Sat by Pulse Oximetry 98 Oxygen Delivery Method Room Air 01/30/24 22:00 01/30/24 22:27 01/30/24 22:30 Temperature Temperature Source Pulse Rate 71 69 75 Pulse Rate [Left Radial] Respiratory Rate 14 15 21 Blood Pressure 168/101 H 153/103 H 163/100 H Blood Pressure [Right Arm] Blood Pressure Mean [Right Arm] Blood Pressure Source [Right Arm] Blood Pressure Position [Right Arm] 02 Sat by Pulse Oximetry 98 95 95 Oxygen Delivery Method Room Air Room Air Room Air Lab Data Labs: Lab Results 01/30/24 21:17: WBC 8.9, RBC 4.95, Hgb 15.1, Hct 44.7, MCV 90.2, MCH 30.6, MCHC 33.9, RDW 14.0, Plt Count 251, MPV 8.3, Neut % (Auto) 55.9, Lymph % (Auto) 29.0, [place] % (Auto) 8.6, Eos % (Auto) 2.5, Baso % (Auto) 4.1 H, Neut # (Auto) 5.0, Lymph # (Auto) 2.6, [place] # (Auto) 0.8, Eos # (Auto) 0.2, Baso # (Auto) 0.4 H, Sodium 139, Potassium 3.5, Chloride 106, Carbon Dioxide 30, Anion Gap 6.5, BUN 9, Creatinine 1.20, Estimated Creat Clear 118, Estimated GFR 65, Est GFR ( Amer) 79, Glucose 107 H, Calcium 8.9, Total Bilirubin 0.4, AST 29, ALT 27, Alkaline Phosphatase 77, Troponin I < 0.01, NT-Pro-B Natriuret Pep 47.5, Total Protein 7.1, Albumin 4.1, Globulin 3.0, Albumin/Globulin Ratio 1.4 01/30/24 23:01: Troponin I < 0.01 01/30/24 21:17 01/30/24 21:17 Response Orders (Tests/Meds): ED MEDICATIONS Discontinued Medications Generic Name Dose Route Start Last Admin Trade Name Freq PRN Reason Stop Dose Admin Albuterol/Ipratropium 6 ml 01/30/24 21:30 01/30/24 21:41 Ipratropium/Albuterol 3 Ml Neb IH 01/30/24 21:31 6 ml ONCE ONE Administration Dexamethasone Sodium Phosphate 10 mg 01/30/24 21:30 01/30/24 21:41 Dexamethasone 4mg/Ml 1ml Vial IV 01/30/24 21:31 10 mg ONCE ONE Administration Irbesartan 75 mg 01/30/24 21:30 01/30/24 21:46 Irbesartan 75mg Tablet PO 01/30/24 21:31 75 mg ONCE ONE Administration Ondansetron HCl 4 mg 01/30/24 23:03 01/30/24 23:05 Ondansetron 4mg/2ml Vial IV 01/30/24 23:04 4 mg ONCE ONE Administration ORDERS Category Date Time Status CXR --portable [XR chest portable] Stat Exams 01/30/24 21:30 Completed CBC w/Auto Diff [Complete Blood Count Auto Diff] Stat Lab 01/30/24 21:17 Completed CMP [Comprehensive Metabolic Panel] Stat Lab 01/30/24 21:17 Completed NT Pro Brain Natriuretic Pep. Stat Lab 01/30/24 21:17 Completed Trop I [Troponin I] Stat Lab 01/30/24 21:17 Completed Troponin I Q3H Lab 01/31/24 00:30 Ordered Troponin I Q3H Lab 01/31/24 03:30 Ordered Troponin I Stat Lab 01/30/24 23:01 Completed MDM Narrative Medical Decision Narrative: 48-year-old male history of hypertension, COPD smoking 3 to 4 packs a day not on home oxygen, hyperlipidemia unprovoked PE currently on Xarelto, chronic vertigo presenting with near syncope. Patient states that he was sitting still not doing anything particular had this feeling of diffuse tingling throughout his body. [place] lightheaded, unwell as if he may vomit, but states that he did not exactly feel nauseated as it felt a little different. Did not actually vomit. No vision changes, chest pain, shortness of breath, or any other concerns. States it also felt different than his vertigo, he did not necessarily feel dizzy as he usually does. This happened just before arrival. History was obtained via conversation with patient. On arrival, patient hemodynamically stable, alert, oriented x4, appropriate, GCS 15, moving all extremities spontaneously, pupils equal and reactive to light. Full physical exam performed and significant for anxious appearing male who is in no acute distress. He is hypertensive, nontachycardic. 96% on room air. Diffuse bilateral wheezes. Cardiac exam within normal limits and pulses equal and symmetric. No lower extremity edema. Differential includes vasovagal presyncope, dehydration, metabolic, anxiety, panic attack, orthostatic, COPD exacerbation, ACS, [place], among others. Patient was given DuoNeb, Solu-Medrol for symptomatic management and correction of underlying abnormalities. Independent interpretation of EKG shows sinus rhythm 67 beats a minute without ST or T wave changes concerning for acute ischemia. VA 177, QRS 120, QTc 424, mild leftward axis. Workup independently interpreted and significant for normal white count, normal CBC overall. Chemistry nonactionable, initial troponin negative, chest x-ray without acute cardiopulmonary airspace disease. See radiology read for full review of final results. Patient placed on continuous cardiac monitoring and continuous pulse ox with initial blood pressure 169/100, heart rate 67, saturation 98% on room air. Heart score 2. Patient was placed in observation beginning at 2100 in order to evolving FL with delta troponin and determine need for admission versus home-going. The patient was provided meds, monitoring while awaiting results. Further conversation with patient and demonstrates patient ate salty meal couple hours prior to blood pressure spike and symptoms described above. Patient states that he still feels like his head is full, feels generally unwell. Irbesartan was given. Prior to final troponin, care handed off to oncoming physician. Candesartan sent to pharmacy for controlled blood pressure. Field Appraiser disclaimer Much of this encounter note is an electronic service support representative spoken language to printed text. Electronic service support representative of the spoken language may permit errors. Although I have reviewed the note, some errors may still exist. <Jonathan White MD - Last Filed: 01/31/24 00:06> Vital Signs Vital Signs: 01/30/24 21:02 01/30/24 21:15 01/30/24 21:30 Temperature 98.8 F Temperature Source Oral Pulse Rate 78 73 Pulse Rate [Left Radial] 72 Respiratory Rate 18 18 15 Blood Pressure 165/107 H 161/108 H Blood Pressure [Right Arm] 169/100 H Blood Pressure Mean [Right Arm] 123 Blood Pressure Source [Right Arm] Automatic Cuff Blood Pressure Position [Right Arm] Sitting 02 Sat by Pulse Oximetry 98 98 98 Oxygen Delivery Method Room Air Room Air Room Air 01/30/24 21:41 01/30/24 21:41 01/30/24 21:41 Temperature Temperature Source Pulse Rate 71 67 Pulse Rate [Left Radial] Respiratory Rate Blood Pressure Blood Pressure [Right Arm] Blood Pressure Mean [Right Arm] Blood Pressure Source [Right Arm] Blood Pressure Position [Right Arm] 02 Sat by Pulse Oximetry 98 Oxygen Delivery Method Room Air 01/30/24 22:00 01/30/24 22:27 01/30/24 22:30 Temperature Temperature Source Pulse Rate 71 69 75 Pulse Rate [Left Radial] Respiratory Rate 14 15 21 Blood Pressure 168/101 H 153/103 H 163/100 H Blood Pressure [Right Arm] Blood Pressure Mean [Right Arm] Blood Pressure Source [Right Arm] Blood Pressure Position [Right Arm] 02 Sat by Pulse Oximetry 98 95 95 Oxygen Delivery Method Room Air Room Air Room Air Lab Data Labs: Lab Results 01/30/24 21:17: WBC 8.9, RBC 4.95, Hgb 15.1, Hct 44.7, MCV 90.2, MCH 30.6, MCHC 33.9, RDW 14.0, Plt Count 251, MPV 8.3, Neut % (Auto) 55.9, Lymph % (Auto) 29.0, [place] % (Auto) 8.6, Eos % (Auto) 2.5, Baso % (Auto) 4.1 H, Neut # (Auto) 5.0, Lymph # (Auto) 2.6, [place] # (Auto) 0.8, Eos # (Auto) 0.2, Baso # (Auto) 0.4 H, Sodium 139, Potassium 3.5, Chloride 106, Carbon Dioxide 30, Anion Gap 6.5, BUN 9, Creatinine 1.20, Estimated Creat Clear 118, Estimated GFR 65, Est GFR ( Amer) 79, Glucose 107 H, Calcium 8.9, Total Bilirubin 0.4, AST 29, ALT 27, Alkaline Phosphatase 77, Troponin I < 0.01, NT-Pro-B Natriuret Pep 47.5, Total Protein 7.1, Albumin 4.1, Globulin 3.0, Albumin/Globulin Ratio 1.4 01/30/24 23:01: Troponin I < 0.01 Response Orders (Tests/Meds): ED MEDICATIONS Discontinued Medications Generic Name Dose Route Start Last Admin Trade Name Freq PRN Reason Stop Dose Admin Albuterol/Ipratropium 6 ml 01/30/24 21:30 01/30/24 21:41 Ipratropium/Albuterol 3 Ml Neb IH 01/30/24 21:31 6 ml ONCE ONE Administration Dexamethasone Sodium Phosphate 10 mg 01/30/24 21:30 01/30/24 21:41 Dexamethasone 4mg/Ml 1ml Vial IV 01/30/24 21:31 10 mg ONCE ONE Administration Irbesartan 75 mg 01/30/24 21:30 01/30/24 21:46 Irbesartan 75mg Tablet PO 01/30/24 21:31 75 mg ONCE ONE Administration Ondansetron HCl 4 mg 01/30/24 23:03 01/30/24 23:05 Ondansetron 4mg/2ml Vial IV 01/30/24 23:04 4 mg ONCE ONE Administration ORDERS Category Date Time Status CXR --portable [XR chest portable] Stat Exams 01/30/24 21:30 Completed CBC w/Auto Diff [Complete Blood Count Auto Diff] Stat Lab 01/30/24 21:17 Completed CMP [Comprehensive Metabolic Panel] Stat Lab 01/30/24 21:17 Completed NT Pro Brain Natriuretic Pep. Stat Lab 01/30/24 21:17 Completed Trop I [Troponin I] Stat Lab 01/30/24 21:17 Completed Troponin I Q3H Lab 01/31/24 00:30 Ordered Troponin I Q3H Lab 01/31/24 03:30 Ordered Troponin I Stat Lab 01/30/24 23:01 Completed MDM Narrative Medical Decision Narrative: 48-year-old male history of hypertension, COPD smoking 3 to 4 packs a day not on home oxygen, hyperlipidemia unprovoked PE currently on Xarelto, chronic vertigo presenting with near syncope. Patient states that he was sitting still not doing anything particular had this feeling of diffuse tingling throughout his body. [place] lightheaded, unwell as if he may vomit, but states that he did not exactly feel nauseated as it felt a little different. Did not actually vomit. No vision changes, chest pain, shortness of breath, or any other concerns. States it also felt different than his vertigo, he did not necessarily feel dizzy as he usually does. This happened just before arrival. History was obtained via conversation with patient. On arrival, patient hemodynamically stable, alert, oriented x4, appropriate, GCS 15, moving all extremities spontaneously, pupils equal and reactive to light. Full physical exam performed and significant for anxious appearing male who is in no acute distress. He is hypertensive, nontachycardic. 96% on room air. Diffuse bilateral wheezes. Cardiac exam within normal limits and pulses equal and symmetric. No lower extremity edema. Differential includes vasovagal presyncope, dehydration, metabolic, anxiety, panic attack, orthostatic, COPD exacerbation, ACS, [place], among others. Patient was given DuoNeb, Solu-Medrol for symptomatic management and correction of underlying abnormalities. Independent interpretation of EKG shows sinus rhythm 67 beats a minute without ST or T wave changes concerning for acute ischemia. [place] 177, QRS 120, QTc 424, mild leftward axis. Workup independently interpreted and significant for normal white count, normal CBC overall. Chemistry nonactionable, initial troponin negative, chest x-ray without acute cardiopulmonary airspace disease. See radiology read for full review of final results. Patient placed on continuous cardiac monitoring and continuous pulse ox with initial blood pressure 169/100, heart rate 67, saturation 98% on room air. Heart score 2. Patient was placed in observation beginning at 2100 in order to evolving [place] with delta troponin and determine need for admission versus home-going. The patient was provided meds, monitoring while awaiting results. Further conversation with patient and demonstrates patient ate salty meal couple hours prior to blood pressure spike and symptoms described above. Patient states that he still feels like his head is full, feels generally unwell. Irbesartan was given. Prior to final troponin, care handed off to oncoming physician. Candesartan sent to pharmacy for controlled blood pressure. Field Appraiser disclaimer Much of this encounter note is an electronic service support representative spoken language to printed text. Electronic service support representative of the spoken language may permit errors. Although I have reviewed the note, some errors may still exist. Cindy LOONEY: I assumed care of the patient at the time of handoff from the prior provider. On reassessment patient reports significant symptomatic improvement. Repeat troponin returns negative. Given this, it is deemed appropriate for discharge and outpatient management and no longer requires observation. Total time in observation 2 hours and 45 minutes. Interactive discussion was had with patient already has discharge. He was discharged in stable condition with return precautions.
--- NOTE | 2024-01-30 22:42 | PC.NURSE ---
rounded on pt at this time pt voices no needs
[2024-01-30] MEDS: ONDANSETRON 4MG/2ML VIAL 4 MG IV (23:05)
--- NOTE | 2024-01-30 23:07 | PC.NURSE ---
2nd troponin sent at this time, zofran given per MAR for nausea, and pt given cold wash cloth.
--- NOTE | 2024-01-30 23:51 | PC.NURSE ---
rounded on pt at this time pt voices no needs
[2024-01-30 23:59] LABS: Troponin I < 0.01 ng/ml (0.00-0.034)
[2024-01-31 00:08] VITALS: BP 143/99; PULSE 66; RESP 16; TEMP 37.1; O2SAT 98
== END 2024-01-31 00:10 | disposition home or self-care (01) ==
PROVIDERS: Emergency Medicine; Emergency Provider Emergency Medicine; PCP Nurse Practitioner Family
DX: R55 Syncope and collapse (principal); R06.2 Wheezing; I10 Essential (primary) hypertension; R42 Dizziness and giddiness; R11.0 Nausea; F17.210 Nicotine dependence, cigarettes, uncomplicated; Z86.711 Personal history of pulmonary embolism; Z79.01 Long term (current) use of anticoagulants; J44.9 Chronic obstructive pulmonary disease, unspecified; E78.5 Hyperlipidemia, unspecified
CPT/HCPCS: 71045; 80053; 83880; 84484; 85025; 93005; 96374; 96375; 99284; J1100; J2405; J7620

== ENCOUNTER 2024-09-03 01:38 | Emergency (ER) | payer MEDICARE, SELFPAY ==
[2024-09-03 01:39] VITALS: BP 173/100; PULSE 82; RESP 17; TEMP 36.8; O2SAT 98; BMI 30.2
--- NOTE | 2024-09-03 01:40 | ECG_ITS ---
APPROVED REPORT Exam: Resting ECG HR:79 bpm ECG Measurements Heart Rate 79 AXES DC 140 P 64 QRSd 127 QRS -59 QT 390 T 55 QTc 425 Conclusion SINUS RHYTHM LEFT AXIS DEVIATION [QRS AXIS < -30] RIGHT BUNDLE BRANCH BLOCK [120+ ms QRS DURATION, UPRIGHT V1, 40+ ms S IN I/aVL/V4/V5/V6] ABNORMAL ECG UNCONFIRMED REPORT Electronically signed by : DENITA HOFF, 09/04/2024 06:49:52
--- NOTE | 2024-09-03 01:44 | CT_ITS ---
PROCEDURE INFORMATION: Exam: CTA Chest With Contrast Exam date and time: 09/03/2024 2:31 AM Age: 49 years old Clinical indication: Pain; Chest pressure; Additional info: Cp, HTN, smoking, HX pe TECHNIQUE: Imaging protocol: Computed tomographic angiography of the chest with contrast. Exam focused on the arteries. 3D rendering (Not supervised by radiologist): MIP and/or 3D reconstructed images were created by the technologist. Radiation optimization: All CT scans at this facility use at least one of these dose optimization techniques: automated exposure control; mA and/or kV adjustment per patient size (includes targeted exams where dose is matched to clinical indication); or iterative reconstruction. Contrast material: ISOVUE; Contrast volume: 80 ml; Contrast route: INTRAVENOUS (IV); COMPARISON: CT ANGIO CHEST PE PROTOCOL 06/06/2021 1:36 AM FINDINGS: Pulmonary arteries: Normal. No pulmonary emboli. Aorta: Unremarkable. No aortic aneurysm. No aortic dissection. Lungs: Unremarkable. No consolidation. No masses. Pleural spaces: Unremarkable. No pneumothorax. No pleural effusion. Heart: Unremarkable. No cardiomegaly. No pericardial effusion. Coronary arteries: No coronary artery calcium. Lymph nodes: Calcified bilateral hilar and mediastinal lymph nodes consistent with prior granulomatous infection. Liver: The liver is low in density. Bones/joints: Unremarkable. No acute fracture. Soft tissues: Unremarkable. IMPRESSION: 1. No evidence of pulmonary embolus or other acute process. 2. Bilateral hilar and mediastinal calcified lymph nodes consistent with prior granulomatous disease. 3. Diffuse hepatic steatosis.
--- NOTE | 2024-09-03 01:44 | HMH.EDGENADL ---
Discharge Plan Disposition Patient Disposition: Home, Self-Care Prescriptions Prescriptions: No Action omeprazole 40 mg capsule,delayed release(DR/EC) 40 mg PO DAILY Patient Comments: TAKE 1 CAPSULE BY MOUTH ONCE DAILY meclizine 12.5 mg tablet 12.5 mg PO BID loratadine 10 mg capsule 10 mg PO DAILY Xarelto 20 mg tablet See Rx Instructions .ROUTE .COMPLEX Qty: 90 0RF Dose Instruction: TAKE 1 TABLET BY MOUTH ONCE DAILY IN THE EVENING WITH MEALS Rx Instructions: TAKE 1 TABLET BY MOUTH ONCE DAILY IN THE EVENING WITH MEALS candesartan 16 mg tablet 16 mg PO DAILY Qty: 30 5RF Referrals Follow up/Referrals: Provider,Referral, MD [Primary Care Provider] - See instructions Activity Restrictions/Add. Instructions Additional Instructions/Restrictions: Please follow-up with your primary care provider. Please return to the emergency department if you develop any new or worsening symptoms or become concerned for your health. Clinical Impressions Clinical Impression: Chest pain, Epigastric pain Print Language Print Language: Slovenian Discharge ED Provider: Jonathan White General Adult HPI General Chief complaint: Chest Pain Stated complaint: Chest Pain Time Seen by Provider: 09/03/24 01:40 History of Present Illness HPI narrative: 49 male with history of hypertension, prior PE presents for multiple complaints. He reports that this evening he started feeling generally bad. He reports he has chronic vertigo and felt a little dizzy but he also had some chest pain and tightness, some abdominal discomfort and upset. Reports no cardiac history. Did not take anything prior to arrival. Related Data Home Medications ?Medication ?Instructions ?Recorded ?Confirmed loratadine 10 mg capsule 10 mg PO DAILY allergies 07/04/20 06/11/23 meclizine 12.5 mg tablet 12.5 mg PO BID Pain 07/04/20 06/11/23 omeprazole 40 mg capsule,delayed 40 mg PO DAILY GERD 07/04/20 06/11/23 release Previous Rx's ?Medication ?Instructions ?Recorded candesartan 16 mg tablet 16 mg PO DAILY #30 tabs 01/30/24 rivaroxaban 20 mg tablet (Xarelto) See Rx Instructions .Route 07/30/24 .COMPLEX #90 tabs Allergies Allergy/AdvReac Type Severity Reaction Status Date / Time amoxicillin (AMOXICILLIN) Allergy Unknown Unknown Verified 06/11/23 10:01 allergy reaction Penicillins (PENICILLINS) Allergy Unknown Unknown Verified 06/11/23 10:01 allergy reaction [facility] Disclaimer: The information contained in this section may have been updated after the patient was seen, as this information can be updated by other users. Medical History (Updated 09/03/24 @ 05:16 by Jonathan White MD) Chronic anticoagulation History of pulmonary embolism Restrictive lung disease Dyspnea on exertion Single subsegmental pulmonary embolism without acute cor pulmonale Shortness of breath Pulmonary embolism and infarction Surgical History History of colonoscopy History of esophagogastroduodenoscopy (EGD) Family History Other Cancer Social History Smoking Status: Current every day smoker tobacco type: cigarettes packs per day: 1 alcohol intake: never substance use type: marijuana current occupational status: unemployed Travel in the last 8 weeks: None household members: children housing: house Other Medical History Have you received the Flu Vaccine for this season: No Have you received the Pneumonia Vaccine: No ROS Obtained: Yes All systems reviewed & no additional complaints except as documented Physical Exam General General appearance: alert and anxious Head Head exam: atraumatic and normocephalic Eye Eye exam: Present normal appearance, PERRL and EOMI ENT ENT exam: Present normal oropharynx and normal external ear exam Neck Neck exam: Present normal inspection and full ROM Chest Chest inspection: Present normal inspection and symmetric chest wall rise; Absent tenderness Respiratory Respiratory exam: Present normal lung sounds bilaterally; Absent respiratory distress Cardiovascular Cardiovascular exam: Present regular rate and normal rhythm Abdominal Exam Abdominal exam: Present soft; Absent distention, tenderness or guarding Extremities Exam Extremities exam: Present normal inspection; Absent edema or joint swelling Back Exam Back exam: Present normal inspection; Absent tenderness Neurological Exam Neurological exam: Present alert and oriented X3; Absent motor sensory deficit Psychiatric Psychiatric exam: Present normal affect and normal mood Skin Skin exam: Present warm, dry and normal color Lymphatic Lymphatic Findings: no adenopathy Medical Decision Making Medical Records Medical records reviewed: Yes I reviewed the patient's medical records. Screening: Per USPSTF and CDC recommendations, given the prevalence of disease in our region, it is our hospital?s policy to screen for HIV and viral Hepatitis for all patients aged 18 and over and those with ongoing risk factors. Yobani Inquiry Pt receiving controlled substance: No Yobani was queried for this patient: No Vital Signs: 09/03/24 01:39 09/03/24 02:00 09/03/24 02:21 Temperature 98.2 F Temperature Source Oral Pulse Rate 80 Pulse Rate [Right] 82 Respiratory Rate 17 15 13 Blood Pressure 158/99 H 152/89 H Blood Pressure [Right Arm] 173/100 H Blood Pressure Mean [Right Arm] 124 Blood Pressure Position [Right Arm] Sitting 02 Sat by Pulse Oximetry 98 95 96 Oxygen Delivery Method Room Air Room Air Room Air 09/03/24 03:00 Temperature Temperature Source Pulse Rate 67 Pulse Rate [Right] Respiratory Rate 14 Blood Pressure 140/89 Blood Pressure [Right Arm] Blood Pressure Mean [Right Arm] Blood Pressure Position [Right Arm] 02 Sat by Pulse Oximetry 98 Oxygen Delivery Method Room Air Lab Data Lab results reviewed: Yes I reviewed the patient's lab results. Lab Results 09/03/24 01:45: WBC 11.2 H, RBC 5.53, Hgb 16.6, Hct 48.3, MCV 87.3, MCH 30.0, MCHC 34.4, RDW 12.8, Plt Count 322, MPV 10.2, Neut % (Auto) 72.6, Lymph % (Auto) 20.4, [place] % (Auto) 4.9, Eos % (Auto) 1.1, Baso % (Auto) 0.6, Neut # (Auto) 8.1 H, Lymph # (Auto) 2.3, [place] # (Auto) 0.6, Eos # (Auto) 0.1, Baso # (Auto) 0.1, Sodium 140, Potassium 3.7, Chloride 105, Carbon Dioxide 25, Anion Gap 13.7, BUN 8 L, Creatinine 1.20, Estimated Creat Clear 115, Estimated GFR 65, Est GFR ( Amer) 79, Glucose 143 H, Calcium 9.2, Total Bilirubin 0.5, AST 39, ALT 43, Alkaline Phosphatase 114, Troponin I < 0.01, Total Protein 7.6, Albumin 4.8, Globulin 2.8, Albumin/Globulin Ratio 1.7, Lipase 81 09/03/24 04:25: Troponin I < 0.01 09/03/24 01:45 09/03/24 01:45 Orders (Tests/Meds): ED MEDICATIONS Generic Name Dose Route Start Last Admin Trade Name Elissa PRN Reason Stop Dose Admin Nitroglycerin 0.4 mg 09/03/24 01:44 09/03/24 01:58 Nitroglycerin 0.4mg Sl Tablet SL 10/03/24 01:43 0.4 mg Q5MINP PRN Administration Chest Pain Discontinued Medications Generic Name Dose Route Start Last Admin Trade Name Elissa PRN Reason Stop Dose Admin Acetaminophen 1,000 mg 09/03/24 01:44 09/03/24 01:58 Acetaminophen 500mg Tab PO 09/03/24 01:45 1,000 mg ONCE ONE Administration Aspirin 324 mg 09/03/24 01:44 09/03/24 01:58 Aspirin 81mg Chewable Tablet PO 09/03/24 01:45 324 mg ONCE ONE Administration Belladonna Alkaloids 60 ml 09/03/24 01:44 09/03/24 01:58 Belladonna Alkaloids 60 Ml Ml PO 09/03/24 01:45 60 ml ONCE ONE Administration Iopamidol 80 ml 09/03/24 02:41 09/03/24 02:42 Iopamidol-370 (76%);100ml Bottle IV 09/03/24 02:42 80 ml ONCE ONE Administration Ondansetron HCl 4 mg 09/03/24 02:20 09/03/24 02:23 Ondansetron 4mg/2ml Vial IV 09/03/24 02:21 4 mg ONCE ONE Administration Sodium Chloride 50 ml 09/03/24 02:41 09/03/24 02:43 0.9 % Sodium Chloride 50 Ml Vial IV 09/03/24 02:42 50 ml ONCE ONE Administration Sodium Chloride 10 ml 09/03/24 02:41 09/03/24 02:43 Sodium Chloride 0.9% 10ml Syr (Rad Only) IV 09/03/24 02:42 10 ml ONCE ONE Administration ORDERS Category Date Time Status CT angio abdomen pelvis Stat Cat Scan 09/03/24 02:23 Completed CTA Chest [CT angio chest - dissection] Stat Cat Scan 09/03/24 01:44 Completed CBC w/Auto Diff [Complete Blood Count Auto Diff] Stat Lab 09/03/24 01:45 Completed CMP [Comprehensive Metabolic Panel] Stat Lab 09/03/24 01:45 Completed HIV Combo Stat Lab 09/03/24 01:45 Received Hepatitis C Ab Qual. W/ RFX Stat Lab 09/03/24 01:45 Received Lipase Stat Lab 09/03/24 01:45 Completed Rapid PCR Covid and Flu A/B Stat Lab 09/03/24 01:45 Ordered Troponin I Q3H Lab 09/03/24 01:45 Completed Troponin I Q3H Lab 09/03/24 04:25 Completed ECG Data Tracing #1: I reviewed this ECG and interpreted as documented below: Sinus rhythm, rate of 79, no significant ST elevation or depression, mildly prolonged QRS, no T wave inversions. ECG initial impression date: 09/03/24 ECG initial impression time: 01:40 HEART Score History (anamnesis): Highly suspicious ECG: Non-specific disturbance Age: 45-65 years Risk factors: 1-2 risk factors Troponin: </= normal limit HEART Score: 5 Medical Decision Narrative: 49-year-old male with history of hypertension, prior PE presents for multiple complaints including chest pain, shortness of breath, abdominal discomfort. History was obtained via interactive discussion with patient family chart review. On arrival, patient is febrile, mildly hypertensive at 170/100, satting appropriately on room air, alert and oriented x 4, moving all extremities spontaneously. Full physical exam performed and significant for no significant physical exam abnormalities. Differential includes but is not limited to ACS, PE, gastroenteritis, GERD, cholecystitis, diverticulitis etc. Patient was given aspirin nitro Tylenol Zofran GI cocktail for symptomatic management and correction of underlying abnormalities. Workup initiated including CBC CMP lipase EKG troponin CTA chest abdomen pelvis. On re-evaluation, patient [remains afebrile, HD stable.] Reports symptomatic improvement Laboratory workup independently interpreted by me and significant for negative initial troponin, no significant leukocytosis or electrolyte derangement. Imaging independently interpreted by me and significant for no evidence of acute aortic pathology, PE, cholecystitis. Looks like there could be some subtle stranding around the right colon but was read as normal. See radiology read for full review of final results. EKG independently interpreted by me and significant for sinus rhythm without obvious ischemic changes. Patient was placed in ED observation status for cardiac monitoring and serial troponins to assess need for admission. On reassessment, after period of observation, patient remains hemodynamically stable. Patient reports continued symptomatic improvement. Repeat troponin returned undetectably low.. Given patient history, exam and workup, patient's presentation most likely represents chest abdominal pain of uncertain etiology. No obvious findings on labs or CT imaging. Patient's heart score is 5. I spoke with him regarding admission for obs and inpatient cardiac evaluation and he reports that he would prefer to go home and follow-up with PCP since he is feeling better and his workup was negative. Given this, he was discharged in stable condition with return precautions. Procedures Risk/Benefits of Procedure(s) Were Explained: Yes Critical Care Critical Care Time Critical Care Time: No
[2024-09-03] MEDS: ASPIRIN 81MG CHEWABLE TABLET 324 MG PO (01:58)
[2024-09-03] MEDS: NITROGLYCERIN 0.4MG SL TABLET 0.4 MG SL (01:58)
[2024-09-03] MEDS: ACETAMINOPHEN 500MG TAB 1000 MG PO (01:58)
[2024-09-03] MEDS: BELLADONNA ALKALOIDS 60 ML ML PO (01:58)
[2024-09-03 02:00] VITALS: BP 158/99; RESP 15; O2SAT 95
[2024-09-03 02:01] LABS: Basophils # 0.1 K/mm3 (0-0.2); Basophils % 0.6 % (0.1-2.0); Eosinophils # 0.1 K/mm3 (0.0-0.4); Eosinophils % 1.1 % (0.1-12.0); Hematocrit 48.3 % (42.0-52.0); Hemoglobin 16.6 g/dL (14.1-18.0); Lymphocytes # 2.3 K/mm3 (0.7-4.5); Lymphocytes % 20.4 % (10-50); Mean Corpuscular HGB Conc 34.4 g/dL (31.8-35.4); Mean Corpuscular Volume 87.3 fl (80-94); Mean Platelet Volume 10.2 fl (7.4-10.4); Monocytes # 0.6 K/mm3 (0.1-1.0); Monocytes % 4.9 % (1.7-9.3); Neutrophils # 8.1 K/mm3 (1.8-7.8); Neutrophils % 72.6 % (37.0-80.0); Platelet Count 322 K/mm3 (142-424); Red Blood Count 5.53 M/mm3 (4.60-6.20); Red Cell Distribution Width 12.8 % (11.5-17.5); White Blood Count 11.2 K/mm3 (4.8-10.8)
--- NOTE | 2024-09-03 02:05 | PC.NURSE ---
rounded on pt, assisted pt to the restroom. pt back on vital machine and pt nor family needs anything at this time.
[2024-09-03 02:10] LABS: Alanine Aminotransferase 43 U/L (12-78); Albumin Level 4.8 g/dl (3.5-5.0); Albumin/Globulin Ratio 1.7 (1.1-1.8); Alkaline Phosphatase 114 U/L (38-126); Anion Gap 13.7 mEq/L (5-15); Aspartate Amino Transferase 39 U/L (17-59); Bilirubin,Total 0.5 mg/dl (0.2-1.3); Blood Urea Nitrogen 8 mg/dl (9-20); Calcium 9.2 mg/dl (8.4-10.2); Carbon Dioxide 25 mmol/L (22.0-30.0); Chloride 105 mmol/L (98-107); Creatinine Clearance Estimated 115 mL/min (50-200); Estimated Glomerular Filt Rate 65 ml/min (>60); GFR (African American) 79 ML/MIN (>60); Globulin 2.8 g/dL (1.3-3.2); Glucose 143 mg/dl (74-100); Potassium 3.7 mmoL/L (3.5-5.1); Sodium 140 mmol/L (136-145); Total Protein,Serum 7.6 g/dl (6.3-8.2)
[2024-09-03 02:21] VITALS: BP 152/89; PULSE 80; RESP 13; O2SAT 96
[2024-09-03 02:22] LABS: Troponin I < 0.01 ng/ml (0.00-0.034)
[2024-09-03] MEDS: ONDANSETRON 4MG/2ML VIAL 4 MG IV (02:23)
--- NOTE | 2024-09-03 02:23 | CT_ITS ---
PROCEDURE INFORMATION: Exam: CTA Abdomen and Pelvis With Contrast Exam date and time: 09/03/2024 2:31 AM Age: 49 years old Clinical indication: Abdominal pain; Acute; Additional info: HTN, abd pain, TECHNIQUE: Imaging protocol: Computed tomographic angiography of the abdomen and pelvis with contrast. Exam focused on the arteries. 3D rendering (Not supervised by radiologist): MIP and/or 3D reconstructed images were created by the technologist. Radiation optimization: All CT scans at this facility use at least one of these dose optimization techniques: automated exposure control; mA and/or kV adjustment per patient size (includes targeted exams where dose is matched to clinical indication); or iterative reconstruction. Contrast material: ISOVUE; Contrast volume: 80 ml; Contrast route: INTRAVENOUS (IV); COMPARISON: CT ABDOMEN PELVIS WO CON 06/06/2021 12:20 AM FINDINGS: Aorta: No aortic aneurysm. No aortic dissection. Celiac trunk and mesenteric arteries: No occlusion or significant stenosis. Renal arteries: No occlusion or significant stenosis. Right iliac arteries: No occlusion or significant stenosis. Left iliac arteries: No occlusion or significant stenosis. Liver: The liver is low in density. Gallbladder and biliary ducts: Unremarkable. No calcified stones. No ductal dilation. Pancreas: Unremarkable. No mass. No ductal dilation. Spleen: Unremarkable. No splenomegaly. Adrenal glands: Unremarkable. No mass. Kidneys and ureters: Unremarkable. No solid mass. No hydronephrosis. Stomach and bowel: Unremarkable. No obstruction. No mucosal thickening. Appendix: No evidence of appendicitis. Intraperitoneal space: Unremarkable. No free air. No significant fluid collection. Lymph nodes: Unremarkable. No enlarged lymph nodes. Urinary bladder: Unremarkable. No mass. Reproductive: Unremarkable as visualized. Bones/joints: No acute fracture. Soft tissues: Unremarkable. IMPRESSION: 1. No acute process noted. 2. Normal abdominal aorta and branches. 3. Diffuse hepatic steatosis.
[2024-09-03 02:31] LABS: Lipase 81 U/L (23-300)
[2024-09-03] MEDS: IOPAMIDOL-370 (76%);100ML BOTTLE 80 ML IV (02:42)
[2024-09-03] MEDS: 0.9 % SODIUM CHLORIDE 50 ML VIAL IV (02:43)
[2024-09-03] MEDS: SODIUM CHLORIDE 0.9% 10ML SYR (RAD ONLY) 10 ML IV (02:43)
[2024-09-03 03:00] VITALS: BP 140/89; PULSE 67; RESP 14; O2SAT 98
--- NOTE | 2024-09-03 03:30 | PC.NURSE ---
Patient resting comfortably in room at this time. No complaints voiced. No needs at this time. Patient states that abdominal/chest pain has decreased from initial assessment after medication intervention.
[2024-09-03 05:07] LABS: Troponin I < 0.01 ng/ml (0.00-0.034)
[2024-09-03 05:17] VITALS: BP 141/93; PULSE 66; RESP 14; TEMP 36.7; O2SAT 98
[2024-09-03 07:52] LABS: HIV Combo NEGATIVE (Negative)
[2024-09-03 08:00] LABS: Hepatitis C Ab Qual. W/ RFX NEGATIVE (Negative)
== END 2024-09-03 05:23 | disposition home or self-care (01) ==
PROVIDERS: Emergency Provider Emergency Medicine
DX: R07.9 Chest pain, unspecified (principal); R10.13 Epigastric pain; R42 Dizziness and giddiness; R06.02 Shortness of breath; F17.210 Nicotine dependence, cigarettes, uncomplicated; R10.9 Unspecified abdominal pain
CPT/HCPCS: 71275; 74174; 80053; 83690; 84484; 85025; 86803; 87389; 93005; 96374; 99285; J2405; Q9967

== ENCOUNTER 2024-09-25 21:38 | Emergency (ER) | payer MEDICARE, SELFPAY ==
--- NOTE | 2024-09-25 21:34 | ECG_ITS ---
APPROVED REPORT Exam: Resting ECG HR:106 bpm ECG Measurements Heart Rate 106 AXES QRSd 115 QRS -76 QT 336 T 53 QTc 398 Conclusion Sinus tachycardia INDETERMINATE AXIS RIGHT BUNDLE BRANCH BLOCK [120+ ms QRS DURATION, UPRIGHT V1, 40+ ms S IN I/aVL/V4/V5/V6] LEFT ANTERIOR FASCICULAR BLOCK [QRS AXIS <= -45, QR IN I, RS IN II] ABNORMAL ECG Electronically signed by : ALDAIR ROBERTS, 09/27/2024 08:22:18
[2024-09-25 21:40] VITALS: BP 175/105; PULSE 68; RESP 18; TEMP 36.9; O2SAT 98; BMI 30.2
[2024-09-25 22:03] LABS: Basophils # 0.1 K/mm3 (0-0.2); Basophils % 0.8 % (0.1-2.0); Eosinophils # 0.2 K/mm3 (0.0-0.4); Eosinophils % 1.4 % (0.1-12.0); Hematocrit 45.1 % (42.0-52.0); Hemoglobin 15.7 g/dL (14.1-18.0); Lymphocytes # 2.8 K/mm3 (0.7-4.5); Lymphocytes % 25.9 % (10-50); Mean Corpuscular HGB Conc 34.8 g/dL (31.8-35.4); Mean Corpuscular Hemoglobin 30.3 pg (27.0-31.2); Mean Corpuscular Volume 87.1 fl (80-94); Mean Platelet Volume 10.4 fl (7.4-10.4); Monocytes # 0.9 K/mm3 (0.1-1.0); Monocytes % 8.1 % (1.7-9.3); Neutrophils # 6.8 K/mm3 (1.8-7.8); Neutrophils % 63.6 % (37.0-80.0); Platelet Count 294 K/mm3 (142-424); Red Blood Count 5.18 M/mm3 (4.60-6.20); Red Cell Distribution Width 12.4 % (11.5-17.5); White Blood Count 10.6 K/mm3 (4.8-10.8)
--- NOTE | 2024-09-25 22:14 | PC.NURSE ---
Patient states feeling much better at this time. Tremors decreased, states that he still has thoughts of harming others.
[2024-09-25 22:16] VITALS: BP 165/99; PULSE 80; RESP 16; O2SAT 97
--- NOTE | 2024-09-25 22:16 | HMH.EDGENADL ---
Discharge Plan Disposition Patient Disposition: Home, Self-Care Prescriptions Prescriptions: New hydrochlorothiazide 25 mg tablet 25 mg PO DAILY Qty: 30 3RF No Action omeprazole 40 mg capsule,delayed release(DR/EC) 40 mg PO DAILY Patient Comments: TAKE 1 CAPSULE BY MOUTH ONCE DAILY meclizine 12.5 mg tablet 12.5 mg PO BID loratadine 10 mg capsule 10 mg PO DAILY Xarelto 20 mg tablet See Rx Instructions .ROUTE .COMPLEX Qty: 90 0RF Dose Instruction: TAKE 1 TABLET BY MOUTH ONCE DAILY IN THE EVENING WITH MEALS Rx Instructions: TAKE 1 TABLET BY MOUTH ONCE DAILY IN THE EVENING WITH MEALS candesartan 16 mg tablet 16 mg PO DAILY Qty: 30 5RF dicyclomine 20 mg tablet 20 mg PO BID Referrals Follow up/Referrals: Lesley Gomez [Primary Care Provider] - See instructions Dayan Shore APRN [Nurse Practitioner] - See instructions Activity Restrictions/Add. Instructions Additional Instructions/Restrictions: Call your family doctor to establish care for this visit to the emergency department and schedule follow-up within 48 hours to ensure improvement. If you have any worsening of your condition or any other concerning signs or symptoms, return to the emergency department or your primary care doctor for further evaluation. Talk to your family doctor about starting SSRI to help with symptoms. Also talk to family doctor about referral to behavioral health. You can also call behavioral health and set up appointment directly Clinical Impressions Clinical Impression: Panic attack, Acute stress reaction Print Language Print Language: Welsh Discharge ED Provider: Frank Dean General Adult HPI General Chief complaint: Anxiety Stated complaint: Chest Pain Time Seen by Provider: 09/25/24 21:43 Mode of Arrival: Ambulatory Source of Information: Patient and Significant Other Limitations: tremors Description of Symptoms (Recalled from ER Triage Doc. by RN): Patient reports being very anxious, tremors present c/o warm feeling across the chest. C/o nausea after eating supper. Reports thought of harming others. States took hydroxyzine related to feeling anxious. Later reports extreme tremors. History of Present Illness HPI narrative: Please note that above description of symptoms, in this electronic medical record under categorization of recalled from ER triage doctor by RN are reflective of an initial nursing assessment, however, is not reflective of my full history and physical exam that was personally taken and clarified. Consequentially, this preceding description of symptoms, which may include the patient's categorized chief complaint in the EMR, do not reflect my personal clinical impression, and the ultimate description of history of present illness and patient stated complaints should be deferred to this section of the note. Unless stated otherwise or congruent with this section of the note, additional signs, symptoms, or incongruence should be interpreted as inaccurate with my clinical impression. Related Data Home Medications ?Medication ?Instructions ?Recorded ?Confirmed loratadine 10 mg capsule 10 mg PO DAILY allergies 07/04/20 06/11/23 meclizine 12.5 mg tablet 12.5 mg PO BID Pain 07/04/20 06/11/23 omeprazole 40 mg capsule,delayed 40 mg PO DAILY GERD 07/04/20 06/11/23 release dicyclomine 20 mg tablet 20 mg PO BID stomach 09/25/24 09/25/24 Previous Rx's ?Medication ?Instructions ?Recorded candesartan 16 mg tablet 16 mg PO DAILY #30 tabs 01/30/24 rivaroxaban 20 mg tablet (Xarelto) See Rx Instructions .Route 07/30/24 .COMPLEX #90 tabs hydrochlorothiazide 25 mg tablet 25 mg PO DAILY #30 tabs 09/26/24 Allergies Allergy/AdvReac Type Severity Reaction Status Date / Time amoxicillin (AMOXICILLIN) Allergy Unknown Unknown Verified 06/11/23 10:01 allergy reaction Penicillins (PENICILLINS) Allergy Unknown Unknown Verified 06/11/23 10:01 allergy reaction PFSH PFSH Disclaimer: The information contained in this section may have been updated after the patient was seen, as this information can be updated by other users. Medical History (Updated 09/26/24 @ 00:12 by Frank Dean MD) Chronic anticoagulation History of pulmonary embolism Restrictive lung disease Dyspnea on exertion Single subsegmental pulmonary embolism without acute cor pulmonale Shortness of breath Pulmonary embolism and infarction Surgical History History of colonoscopy History of esophagogastroduodenoscopy (EGD) Family History Other Cancer Social History Smoking Status: Current every day smoker tobacco type: cigarettes packs per day: 1 alcohol intake: never substance use type: marijuana current occupational status: unemployed Travel in the last 8 weeks: None household members: children housing: house Have you lived/traveled outside [place] in past 30 days?: No Contact w/someone who lives/traveled outside [place] past 30 days?: No Exposure to someone with infectious disease in past 14 days?: No Do you have a fever (greater than 100.4 F or 38 C)?: No Have you tested positive for COVID-19: No Exposed to someone with COVID-19 in past 14 days?: No Do you have a sore throat?: No Do you have a cough?: No Do you have any weakness?: No Do you have any diarrhea?: No Are you experiencing any unusual bleeding?: No Do you have any muscle aches/pain?: No Do you have any abdominal pain?: No Are you experiencing loss of taste or smell?: No Other Medical History Have you received the Flu Vaccine for this season: No Have you received the Pneumonia Vaccine: No ROS Obtained: Yes All systems reviewed & no additional complaints except as documented Physical Exam General General appearance: alert and anxious (Having acute panic attack) Head Head exam: atraumatic and normocephalic Eye Eye exam: Present normal appearance, PERRL and EOMI Neck Neck exam: Present normal inspection, full ROM and trachea midline Respiratory Respiratory exam: Absent respiratory distress, wheezes, stridor, accessory muscle use or prolonged expiratory phase Cardiovascular Cardiovascular exam: Present other (Pulses equal symmetric in upper and lower extremities) Abdominal Exam Abdominal exam: Present soft; Absent distention, tenderness or pulsatile mass Extremities Exam Extremities exam: Absent edema Neurological Exam Neurological exam: Present alert, oriented X3 and CN II-XII intact; Absent motor sensory deficit Psychiatric Psychiatric exam: Present agitated and manic Skin Skin exam: Present warm and dry; Absent diaphoresis or erythema Medical Decision Making Medical Records Medical records reviewed: Yes I reviewed the patient's medical records. Screening: Per USPSTF and CDC recommendations, given the prevalence of disease in our region, it is our hospital?s policy to screen for HIV and viral Hepatitis for all patients aged 18 and over and those with ongoing risk factors. Yobani Inquiry Pt receiving controlled substance: No Yobani was queried for this patient: No Vital Signs: 09/25/24 21:40 09/25/24 22:16 Temperature 98.5 F Temperature Source Oral Pulse Rate 80 Pulse Rate [Left] 68 Respiratory Rate 18 16 Blood Pressure 165/99 H Blood Pressure [Left Arm] 175/105 H Blood Pressure Mean [Left Arm] 128 Blood Pressure Source Automatic Cuff Blood Pressure Source [Left Arm] Automatic Cuff Blood Pressure Position Sitting Blood Pressure Position [Left Arm] Sitting 02 Sat by Pulse Oximetry 98 97 Oxygen Delivery Method Room Air Room Air Lab Data Lab Results 09/25/24 21:55: WBC 10.6, RBC 5.18, Hgb 15.7, Hct 45.1, MCV 87.1, MCH 30.3, MCHC 34.8, RDW 12.4, Plt Count 294, MPV 10.4, Neut % (Auto) 63.6, Lymph % (Auto) 25.9, [place]lee % (Auto) 8.1, Eos % (Auto) 1.4, Baso % (Auto) 0.8, Neut # (Auto) 6.8, Lymph # (Auto) 2.8, Greenlee # (Auto) 0.9, Eos # (Auto) 0.2, Baso # (Auto) 0.1, APTT 33.9 H, Sodium 140, Potassium 3.4 L, Chloride 103, Carbon Dioxide 28, Anion Gap 12.4, BUN 9, Creatinine 1.30 H, Estimated Creat Clear 106, Estimated GFR 59, Est GFR ( Amer) 72, Glucose 128 H, Calcium 9.0, Magnesium 2.0, Total Bilirubin 0.4, AST 33, ALT 37, Alkaline Phosphatase 90, Troponin I < 0.01, Total Protein 7.7, Albumin 4.6, Globulin 3.1, Albumin/Globulin Ratio 1.5, TSH 1.60, Thyroxine (T4) 9.5, Plasma/Serum Alcohol < 10 09/25/24 21:55 09/25/24 21:55 Orders (Tests/Meds): ED MEDICATIONS Generic Name Dose Route Start Last Admin Trade Name Freq PRN Reason Stop Dose Admin Sodium Chloride 10 ml 09/25/24 22:14 Sodium Chloride 0.9% 10ml Vial IV 10/25/24 22:13 NEEDED PRN to Dilute Lorazepam inj Discontinued Medications Generic Name Dose Route Start Last Admin Trade Name Freq PRN Reason Stop Dose Admin Lorazepam 2 mg 09/25/24 22:14 09/25/24 22:22 Lorazepam 2mg/Ml Vial IV 09/25/24 22:15 2 mg ONCE ONE Administration ORDERS Category Date Time Status Complete Blood Count Auto Diff Stat Lab 09/25/24 21:55 Completed Comprehensive Metabolic Panel Stat Lab 09/25/24 21:55 Completed Drug Screen,Urine Stat Lab 09/25/24 21:44 Ordered Ethanol [Ethyl Alcohol] Stat Lab 09/25/24 21:55 Completed Magnesium Stat Lab 09/25/24 21:55 Completed PTT [Activated Partial Thrombo Time] Stat Lab 09/25/24 21:55 Completed T4 (Thyroxine) Stat Lab 09/25/24 21:55 Completed TSH [Thyroid Stimulating Hormone] Stat Lab 09/25/24 21:55 Completed Troponin I Q3H Lab 09/26/24 00:45 Ordered Troponin I Q3H Lab 09/26/24 03:45 Ordered Troponin I Stat Lab 09/25/24 21:55 Completed Medical Decision Narrative: Is a 49-year-old male presenting with acute agitation and panic attack. Unable to obtain history initially, IV placed and IV sedatives were given. On reevaluation, patient states that he has been having panic attacks on and off for the last couple of. States that they start in his stomach, feel as if they go up the stomach up through his chest, down both of his arms, hands start to go tingly, then gets horrible images in my head, and feelings like I just have to slap someone. No hallucinations, denies intoxication, withdrawal, etc. States that symptoms are very quickly resolving after IV Ativan. History was obtained via conversation with patient and significant other. On arrival, patient hemodynamically stable, alert, oriented x4, appropriate, GCS 15, moving all extremities spontaneously, pupils equal and reactive to light. Full physical exam performed and significant for agitated and in no acute distress, but appears to be having panic attack. Aggressive, not responding to internal stimuli. After IV benzodiazepines, much more appropriate and reasonable. Conversational. Differential includes intoxication, withdrawal, anxiety, panic, others. Patient placed on continuous cardiac monitoring and continuous pulse ox with initial blood pressure 175/105, heart rate 68, saturation 98% on room air. Independent interpretation of EKG shows sinus tachycardia 106 bpm with MT interval about 120 ms, QRS 115, QTc 398. No acute ischemic change. Leftward axis. Patient was given IV Ativan for symptomatic management and correction of underlying abnormalities. Workup independently interpreted and significant for nonactionable hematologic labs, mild ADOLFO, but patient given p.o. challenge successfully for this. Troponin negative, alcohol level negative. Reevaluation, patient states that his blood pressures been running high, he feels that this is related. When his blood pressure gets up he starts getting anxious, red in the face, seems to exacerbate the symptoms. Antihypertensive sent to the pharmacy. Patient reasonable on discharge and agreeable outpatient management. I feel this is appropriate. Because patient at baseline without signs or symptoms of clinical decompensation, deemed appropriate for discharge. Results were relayed to patient who voiced understanding and were agreeable to outpatient management and follow up. I discussed my clinical impression with patient and answered all questions. At this time, the evidence for any other entities in the differential is insufficient to warrant any further testing or ED observation. This was explained as well. Advisory was given that persistent or worsening symptoms require further evaluation. I confirmed the understanding of this discussion. Planting Supervisor disclaimer Much of this encounter note is an electronic kennel attendant spoken language to printed text. Electronic kennel attendant of the spoken language may permit errors. Although I have reviewed the note, some errors may still exist. Critical Care Critical Care Time Critical Care Time: No
[2024-09-25 22:20] LABS: Albumin Level 4.6 g/dl (3.5-5.0); Chloride 103 mmol/L (98-107); Potassium 3.4 mmoL/L (3.5-5.1); Sodium 140 mmol/L (136-145)
[2024-09-25 22:22] LABS: Alanine Aminotransferase 37 U/L (12-78); Alkaline Phosphatase 90 U/L (38-126); Anion Gap 12.4 mEq/L (5-15); Aspartate Amino Transferase 33 U/L (17-59); Bilirubin,Total 0.4 mg/dl (0.2-1.3); Blood Urea Nitrogen 9 mg/dl (9-20); Carbon Dioxide 28 mmol/L (22.0-30.0); Creatinine Clearance Estimated 106 mL/min (50-200); Estimated Glomerular Filt Rate 59 ml/min (>60); Ethyl Alcohol < 10 mg/dl (0-10); GFR (African American) 72 ML/MIN (>60)
[2024-09-25] MEDS: LORazepam 2MG/ML VIAL 2 MG IV (22:22)
[2024-09-25 22:23] LABS: Activated Partial Thrombo Time 33.9 seconds (22.8-30.6); Albumin/Globulin Ratio 1.5 (1.1-1.8); Globulin 3.1 g/dL (1.3-3.2); Glucose 128 mg/dl (74-100); Total Protein,Serum 7.7 g/dl (6.3-8.2)
[2024-09-25 22:38] LABS: Troponin I < 0.01 ng/ml (0.00-0.034)
[2024-09-25 22:40] LABS: T4 (Thyroxine) 9.5 ug/dl (5.53-11.0)
[2024-09-26 00:17] VITALS: BP 138/91; PULSE 79; RESP 20; TEMP 36.6; O2SAT 97
[2024-09-26 00:49] LABS: Amphetamine/Metha Screen,Urine Negative ng/ml (<1000)
[2024-09-26 00:50] LABS: Barbiturates Screen,Urine Negative ng/ml (<200); Benzodiazepines Screen,Urine Negative ng/ml (<200)
[2024-09-26 00:51] LABS: Cannabinoid Screen,Urine Positive ng/ml (<50)
[2024-09-26 00:52] LABS: Cocaine Screen,Urine Negative ng/ml (<300); Methadone Screen,Urine Negative ng/ml (<300)
[2024-09-26 00:53] LABS: Opiate Screen,Urine Negative ng/ml (<300)
[2024-09-26 00:54] LABS: Phencyclidine Screen,Urine Negative ng/ml (<25)
== END 2024-09-26 00:26 | disposition home or self-care (01) ==
PROVIDERS: Emergency Provider Emergency Medicine; PCP Nurse Practitioner Family
DX: F41.0 Panic disorder [episodic paroxysmal anxiety] (principal); F43.0 Acute stress reaction; R07.89 Other chest pain; R11.10 Vomiting, unspecified; R25.1 Tremor, unspecified; F17.210 Nicotine dependence, cigarettes, uncomplicated
CPT/HCPCS: 80053; 80307; 80320; 83735; 84436; 84443; 84484; 85025; 85730; 93005; 96374; 99283; G0480; J2060

== ENCOUNTER 2024-10-16 08:31 | Outpatient (CLI) | payer MEDICARE, SELFPAY ==
--- NOTE | 2024-10-16 08:46 | US_ITS ---
FINAL REPORT TECHNIQUE: Multiple transverse and longitudinal images CLINICAL HISTORY: RUQ PAIN COMPARISON: 04/10/2021 FINDINGS: There is a 3 mm polyp along the proximal posterior wall of the gallbladder. There is no evidence of gallstones or gallbladder wall thickening. No biliary ductal dilatation is appreciated. No fluid collections are seen. There is mild fatty change of the liver without focal hepatic mass. Limited portions of the right kidney are unremarkable. IMPRESSION: Fatty change of the liver. Small stable gallbladder polyp without gallstones. Reviewed, Interpreted and Dictated by Mauro Becerra MD Transcribed by Kinga Guzman Authenticated and [facility]
== END 2024-10-16 23:59 | disposition home or self-care (01) ==
LOC: RAD 08:33
PROVIDERS: PCP Nurse Practitioner Family; Visit Provider Nurse Practitioner Family
DX: R10.11 Right upper quadrant pain (principal)
CPT/HCPCS: 76705

== ENCOUNTER 2024-10-30 06:42 | Outpatient (CLI) | payer MEDICARE, MEDICAID, SELFPAY ==
--- NOTE | 2024-10-30 06:46 | NM_ITS ---
FINAL REPORT CLINICAL HISTORY: RUQ ABDOMINAL PAIN FINDINGS: Sequential anterior projection images of the abdomen were obtained after the intravenous injection of 8.65 mCi technetium 99m Choletec. There is normal uptake of radiotracer by the liver. The bile ducts are visualized by 15 minutes. Gallbladder activity is seen by 15 minutes. Bowel activity is noted by 25 minutes. After 1 hour, 2.1 ?g of CCK was injected intravenously for calculation of gallbladder ejection fraction. The gallbladder ejection fraction is 39%, which is within normal limits. IMPRESSION: No evidence of cystic duct or bile duct obstruction. Normal gallbladder ejection fraction of 39%. Reviewed, Interpreted and Dictated by Mauro Becerra MD Transcribed by Nicki Grayson Authenticated and [facility]
[2024-10-30] MEDS: SINCALIDE 2.1 MCG in 0.9 % SODIUM CHLORIDE 50 ML 100 MCG IV (08:12)
[2024-10-30] MEDS: SODIUM CHLORIDE 0.9% 10ML SYR (RAD ONLY) 10 ML IV (08:13)
[2024-10-30] MEDS: ISOTOPE CHOLETECH;1 DOSE (UP TO 15 MCI) IV (08:13)
== END 2024-10-30 23:59 | disposition home or self-care (01) ==
PROVIDERS: PCP Nurse Practitioner Family; Visit Provider Nurse Practitioner Family
DX: R10.11 Right upper quadrant pain (principal)
CPT/HCPCS: 78227; A9537; J2805

== ENCOUNTER 2024-11-25 08:00 | Outpatient (RCR) | payer MEDICARE, MEDICAID, SELFPAY | END 2024-11-25 23:59 | disposition home or self-care (01) | LOC: OT 08:00 | PROVIDERS: PCP Nurse Practitioner Family; Visit Provider Family Medicine Sports Medicine | DX: M25.521 Pain in right elbow (principal) | CPT/HCPCS: 97014; 97035; 97110; 97140; 97166; G0283 ==

== ENCOUNTER 2025-01-19 07:32 | Outpatient (CLI) | payer MEDICARE, MEDICAID, SELFPAY ==
--- OUTSIDE RECORDS SUMMARY | 2024-12-14 09:20 | XMS_ITS | Encounter Summary ---
Author Organization [facility] Address [address] [id number] Care Team Providers Care Fairing Man Name Role Phone Lesley Gomez APRN Primary Care Provider [phone] Nolan Moeller MD Unavailable Reason for Visit * Reason Comments Earache Encounter Details Date Type Department Care Team (Late st Contact Info) Description 12/14/2024 9:20 AM EDT Office Visit [facility] [address] [place] [address] Lesley Gomez, TERRITORY SALES MANAGER [address] [place] [address] Right chronic serous otitis media (Primary Dx); Generalized anxiety disorder Social History Tobacco Use Types Packs/Day Years Used Date Smoking Tobacco: Every Day Cigarettes 1 20 Passive Smoke Exposure: Current Smokeless Tobacco: Never Alcohol Use Standard Drinks/Week Comments Yes 0 (1 standard drink = 0.6 oz pur e alcohol) Humiliation, Afraid, Rape, and Kick questionnair e Answer Date Recorded Within the last year, have y ou been afraid of your partner or ex-partner? No 12/14/2024 Within the last year, have y ou been humiliated or emotionally abused in other ways by your partner or ex-partner? No Within the last year, have y ou been kicked, hit, slapped, or otherwise physically hurt by your partner or ex-partner? No 12/14/2024 Within the last year, have y ou been raped or forced to have any kind of sexual activity by your partner or ex-partner? No 12/14/2024 Overall Financial Resource Strain (CARDIA) Answe r Date Recorded How hard is it for you to pa y for the very basics like food, housing, medical care, and heating? Somewhat hard 11/22/2022 PHQ-2 Answer Date Recorded Patient Health Questionnaire-2 Score 4 12/14/2024 Hunger Vital Sign Answer Date Recorded Within the past 12 months, y ou worried that your food would run out before you got the money to buy more. Never true 12/15/19 25 Within the past 12 months, t he food you bought just didn't last and you didn't have money to get more. Never true 12/14/2024 PRAPARE - Transportation Answer Date Re corded In the past 12 months, has l ack of transportation kept you from medical appointments or from getting medications? No 11/26 In the past 12 months, has l ack of transportation kept you from meetings, work, or from getting things needed for daily living? No 12/14/2024 Housing Stability Vital Sign Answer Rik e Recorded In the last 12 months, was t here a time when you were not able to pay the mortgage or rent on time? No 02/24/2024 In the last 12 months, how many places have you lived? 1 02/24/2024 In the last 12 months, was t here a time when you did not have a steady place to sleep or slept in a nursing home (including now)? No 02/24/2024 PHQ-9 Answer Date Recorded Patient Health Questionnaire-9 Score 10 12/14/2024 Housing Stability Vital Sign Answer Rik e Recorded In the last 12 months, was t here a time when you were not able to pay the mortgage or rent on time? No 12/14/2024 In the past 12 months, how m any times have you moved where you were living? 0 12/14/2024 At any time in the past 12 m [facility], were you homeless or living in a nursing home (including now)? No 12/14/2024 Utilities Answer Date Recorded In the past 12 months has th e electric, gas, oil, or water company threatened to shut off services in your home? No 12/14/2024 PHQ-2A Answer Date Recorded Patient Health Questionnaire-2 Score 0 05/08/2023 Sex and Gender Information Value Date Recorded Sex Assigned at Not on file Legal Sex Male 6:38 PM EDT Gender Identity Not on file Sexual Orientation Not on file documented as of this encounter Last Filed Vital Signs Vital Sign Reading Time Taken Comments Blood Pressure 126/88 12/14/2024 9:23 AM EDT Pulse 82 12/14/2024 9:23 AM EDT Temperature 36.7 C (98 F) 12/14/2024 9:23 AM EDT Respiratory Rate 16 12/14/2024 9:23 AM EDT Oxygen Saturation 97% 12/14/2024 9:23 AM EDT Inhaled Oxygen Concentration - - Weight 106 kg (234 lb 1.6 oz) 12/14/2024 9:23 AM EDT Height 188 cm (6' 2 ) 12/14/2024 9:23 AM EDT Body Mass Index 30.06 12/14/2024 9:23 AM EDT documented in this encounter Functional Status * Over the past 2 weeks, how often have you been bothered by any of the following problems? Question Answer Date of Assessment Author Little interest or pleasure in doing things More than half the days 12/14/2024 9:26 AM ARCELIAT Kinga Griffin Feeling down, depressed, or hopeless More than half the days 12/14/2024 9:26 AM ARCELIAT Kinga Griffin Patient Health Questionnaire-2 Score 4 12/14/2024 9:26 AM ARCELIAT Kinga Griffin * Question Answer Date of Assessment Author Trouble falling or staying asleep, or sleeping too much Not at all 12/14/2024 9:26 AM Kinga Grant Feeling tired or having little energy Nearly every day 12/14/2024 9:26 AM ARCELIAT Kinga Griffin Poor appetite or overeating Not at all 12/14/2024 9:26 AM ARCELIAT Kinga Griffin Feeling bad about yourself - or that you are a failure or have let yourself or your family down Several days 12/14/2024 9:26 AM ARCELIAT Kinga Griffin Trouble concentrating on things, such as reading the newspaper or watching television More than half the days 12/14/2024 9:26 AM EDT Kinga Griffin Moving or speaking so slowly that other people could have noticed? Or the opposite - being so fidgety or restless that you have been moving around a lot more than usual. Not at all 12/14/2024 9:26 AM EDT Kinga Griffin Thoughts that you would be better off or hurting yourself in some way Not at all 12/14/2024 9:26 AM EDT Kinga Griffin Patient Health Questionnaire-9 Score 10 12/14/2024 9:26 AM EDT Kinga Griffin * Calculated C-SSRS Risk Score (Lifetime/Recent) Answer Date of Assessment Author No Risk Indicated 12/14/2024 9:28 AM EDT Kinga Maynard * If you checked off any problems on this questionnaire so far, Question Answer Date of Assessment Author How difficult have these problems made it for you to do your work, take care of things at home, or get along with other people? Not difficult at all 12/14/2024 9:26 AM EDT Kinga Griffin * Question Answer Date of Assessment Author 1. Wish to be (Past 1 Month) No 025 9:28 AM EDT Kinga Griffin 2. Non-Specific Active Suici rocío Thoughts (Past 1 Month) No 12/14/2024 9:28 AM EDT Kinga Griffin 6. Suicidal Behavior (Lifetime) No 9:28 AM EDT Kinga Griffin documented as of this encounter Miscellaneous Notes * Clinician Note - Kinga Griffin - 12/14/2024 9:20 AM EDT Fall risk protocol in place, pt in chair with arms * Progress Notes - Lesley Gomez APRN - 12/14/2024 9:20 AM EDT Subjective Antwon Ferguson Rosario Pt is here with complaints that his right ear is hurting and hurts down into his neck Has been doing that for 5 days and worsening with left starting to hurt also No fever some sinus congestion no cough He also discusses had had increased anxiety is smoking 3 pack cig a day and has to stay with girlfriend does not want to be alone Refused med adjustment and discussed need for counseling but refused that also states he is handling on own Medical History[1] Surgical History[2] Family History[3] Social History Socioeconomic History Marital status: Spouse name: Not on file Number of children: Not on file Years of education: Not on file Highest education level: Not on file Occupational History Not on file Tobacco Use Smoking status: Every Day Current packs/day: 1.00 Average packs/day: 1 pack/day for 20.0 years (20.0 ttl pk-yrs) Types: Cigarettes Passive exposure: Current Smokeless tobacco: Never Vaping Use Vaping status: Never Used Substance and Sexual Activity Alcohol use: Yes Drug use: Not on file Sexual activity: Not on file Other Topics Concern Not on file Social History Narrative Marital history Social Drivers of Health Financial Resource Strain: Medium Risk (11/22/2022) Overall Financial Resource Strain (CARDIA) Difficulty of Paying Living Expenses: Somewhat hard Food Insecurity: No Food Insecurity (12/14/2024) Hunger Vital Sign Worried About Running Out of Food in the Last Year: Never true Ran Out of Food in the Last Year: Never true Transportation Needs: No Transportation Needs (12/14/2024) PRAPARE - Transportation Lack of Transportation (Medical): No Lack of Transportation (Non-Medical): No Physical Activity: Not on file Stress: Not on file Social Connections: Low Risk (01/22/2024) Received from [facility] Family and Community Support Help with Day to Day Activities: Not on file Feeling Lonely or Isolated: Not on file Intimate Partner Violence: Not At Risk (12/14/2024) Humiliation, Afraid, Rape, and Kick questionnaire Fear of Current or Ex-Partner: No Emotionally Abused: No Physically Abused: No Sexually Abused: No Housing Stability: Low Risk (12/14/2024) Housing Stability Vital Sign Unable to Pay for Housing in the Last Year: No Number of Times Moved in the Last Year: 0 Homeless in the Last Year: No Medications Ordered Prior to Encounter[4] Health Maintenance Due Topic Date Due Dental Oral Exam Never done Dental X-Ray: Bitewings Never done Dental X-Ray: Full Mouth Never done Dental Prophylaxis Never done [facility]-Medicare Annual Wellness (AWV) Never done [facility]-HIV Screening Never done [facility]-Hepatitis C Screening Never done [facility]-DTaP,Tdap,and Td Vaccines (1 - Tdap) Never done [facility]-Hepatitis B Vaccines (1 of 3 - 19+ 3-dose series) Never done [facility]-Hepatitis A Vaccines (1 of 2 - Risk 2-dose series) Never done [facility]-Pneumococcal Vaccine: Pediatrics (0 to 5 Years) and At-Risk Patients (6 to 64 Years) (1 of 2 - PCV) Never done [id number] Vaccine ( - season) Never done Review of Systems Constitutional: Negative. HENT: Positive for ear pain and sinus pain. Respiratory: Negative. Cardiovascular: Negative. Neurological: Negative. Psychiatric/Behavioral: Negative. Objective Vitals: 12/14/24 0923 BP: 126/88 Pulse: 82 Resp: 16 Temp: 36.7 ??C (98 ??F) SpO2: 97% Physical Exam Vitals and nursing note reviewed. Constitutional: Appearance: He is obese. HENT: Ears: Comments: Both tms erythemtous Nose: Congestion present. Mouth/Throat: Mouth: Mucous membranes are moist. Pharynx: Oropharynx is clear. Eyes: Pupils: Pupils are equal, round, and reactive to light. Cardiovascular: Rate and Rhythm: Normal rate and regular rhythm. Pulses: Normal pulses. Heart sounds: Normal heart sounds. Pulmonary: Effort: Pulmonary effort is normal. Breath sounds: Normal breath sounds. Neurological: General: No focal deficit present. Mental Status: He is alert and oriented to person, place, and time. Psychiatric: Mood and Affect: Mood normal. Behavior: Behavior normal. Thought Content: Thought content normal. Judgment: Judgment normal. Assessment/Plan Diagnoses and all orders for this visit: Right chronic serous otitis media - sulfamethoxazole-trimethoprim (Bactrim DS) 800-160 MG tablet; Take 1 tablet by mouth 2 times a day for 7 days. Generalized anxiety disorder Refused any med changes or counseling [1] Past Medical History: Diagnosis Date Benign paroxysmal vertigo, unspecified ear Benign paroxysmal positional vertigo Elevated blood-pressure reading, without diagnosis of hypertension Elevated BP without diagnosis of hypertension Neuralgia and neuritis, unspecified Neuropathic pain Prediabetes Prediabetes [2] Past Surgical History: Procedure Laterality Date OTHER SURGICAL HISTORY N/A History of endoscopy from [facility] OTHER SURGICAL HISTORY N/A History of vasectomy from [facility] [3] Family History Problem Relation Name Age of Onset Migraines Mother Hyperlipidemia Other Hypertension Other [4] Current Outpatient Medications on File Prior to Visit Medication Sig Dispense Refill atorvastatin (Lipitor) 10 MG tablet Take 1 tablet (10 mg) by mouth 1 (one) time each day. 90 tablet2 cyclobenzaprine (Flexeril) 10 MG tablet Take 1 tablet by mouth at night as needed for muscle spasms. 90 tablet 3 famotidine (Pepcid) 20 MG tablet Take 1 tablet by mouth twice daily 180 tablet 2 FLUoxetine (PROzac) 20 MG capsule Take 1 capsule by mouth once daily 30 capsule 0 hydroCHLOROthiazide (HYDRODiuril) 25 MG tablet Take 1 tablet (25 mg) by mouth daily. hydrOXYzine HCl (Atarax) 25 MG tablet Take 1 tablet (25 mg) by mouth every 6 hours as needed for anxiety. 30 tablet 1 Loratadine 10 MG capsule Take 10 mg by mouth 1 (one) time each day. meclizine (Antivert) 12.5 MG tablet TAKE 1 TABLET EVERY 6 HOURS NEEDED FOR DIZZINESS. omeprazole (PriLOSEC) [address] capsule Take 1 capsule (40 mg) by mouth 1 (one) time each day. 90 capsule 2 rivaroxaban (Xarelto) 20 MG tablet Take 1 tablet (20 mg) by mouth 1 (one) time each day. Take with food. 30 tablet 11 No current facility-administered medications on file prior to visit. documented in this encounter Plan of Treatment Not on file documented as of this encounter Visit Diagnoses Diagnosis Right chronic serous otitis media- Primary Simple or unspecified chronic serous otitis media Generalized anxiety disorder documented in this encounter Additional Health Concerns Assessment Noted Time PHQ-9 Depression Total Score: 10 025 9:26 AM EDT A fall risk assessment has been complete d for the patient 12/14/2024 9:31 AM EDT A Body Mass Index follow-up plan has been documented for the patient 12/14/2024 9:52 AM EDT documented as of this encounter Care Teams Fairing Man Relationship Specialty Start Date End Date Lesley Gomez APRN [address] [place] [id number] PCP - General 12/09/20 Nolan Moeller MD [address] [place] [address] Consulting Physician Neurology 01/13/24 documented as of this encounter
--- OUTSIDE RECORDS SUMMARY | 2025-01-18 11:45 | XMS_ITS | Encounter Summary ---
Author Organization [employer] Address [address] [place] [address] Care Team Providers Care Employment And Claims Aide Name Role Phone Lesley Gomez APRN Primary Care Provider [phone] Reason for Visit * Reason Comments Follow-up Follow up Encounter Details Date Type Department Care Team (Late st Contact Info) Description 01/18/2025 11:45 AM EDT Office Visit [facility] Urology - [address] [address] Edgard Bailey MD [address] [address] Hydrocele, unspecified hydrocele type (Primary Dx); Abnormal finding on diagnostic imaging of right testicle; Epididymal cyst; Scrotum pain; Prostate cancer screening Social History Tobacco Use Types Packs/Day Years Used Date Smoking Tobacco: Every Day Cigarettes Smokeless Tobacco: Never Alcohol Use Standard Drinks/Week Comments Never 0 (1 standard drink = 0.6 oz pur e alcohol) Interpersonal Safety Answer Date Record ed Family or friends hurt you Not on file 01/21 Family or friends insult you Not on file Family or friends threaten you Not on file 0 01/22/2024 Family or friends scream or curse at you Not on file 01/22/2024 Family and Community Support Answer Rik e Recorded Help with Day to Day Activities Not on file 01/22/2024 Feeling Lonely or Isolated Not on file 01/21 Educational Attainment Answer Date Rubens rded Speak language other than Japanese at home Not on file 01/22/2024 Want help with school or training Not on file 01/22/2024 Depression Answer Date Recorded PHQ-2 Risk Not on file 01/22/2024 Disabilities Answer Date Recorded Difficulty concentrating Not on file 024 Difficulty doing errands alone Not on file 0 01/22/2024 Substance Use Answer Date Recorded Used prescription meds for non-medical reasons N ot on file 01/22/2024 Used illegal drugs past 12 months Not on file 01/22/2024 Sex and Gender Information Value Date Recorded Sex Assigned at Not on file Legal Sex Male 5:25 PM CDT Gender Identity Not on file Sexual Orientation Not on file documented as of this encounter Last Filed Vital Signs Vital Sign Reading Time Taken Comments Blood Pressure 130/80 01/18/2025 11:36 AM EDT Pulse - - Temperature - - Respiratory Rate - - Oxygen Saturation - - Inhaled Oxygen Concentration - - Weight 106.5 kg (234 lb 11.2 oz) 2024 11:36 AM EDT Height 185.4 cm (6' 1 ) 01/18/2025 11:3 6 AM EDT Body Mass Index 30.96 01/18/2025 11:36 AM EDT documented in this encounter Progress Notes * Edgard Bailey MD - 01/18/2025 11:45 AM EDT Subjective: Patient ID: Antwon Ponce is a 49 y.o. male. Chief Complaint: Follow-up (Follow up ) Patient returns to clinic today for follow-up of right testicular abnormality seen on previous ultrasound and a complex right hydrocele versus spermatocele. He also has a history of an epididymal cyst on the left. He states his left testicular region hurts a little more than before. The right scrotum appears a little bigger and the left a little smaller. He has occasional burning discomfort with ejaculation. He at times has urinary hesitancy with postvoid dribbling. He often sits to void since he states he becomes dizzy if he stands. In September patient apparently had a significantly elevated blood pressure with a panic/anxiety attack and went to the emergency room. He tells me that is planning a colonoscopy in the near future. The patient had a scrotal ultrasound done on 09/04/2024 which was compared to 03/09/2024. This showed a heterogeneous right testicle with no testicular mass. There was a small to moderate complex right hydrocele that was stable. The left testicle is also heterogeneous but with no mass. See past history from 09/09/2024: Patient ID: Antwon Ponce is a 49 y.o. male. Chief Complaint: Follow-up (Scotum ultrasound ) The patient returns back to the history of intermittent right scrotal discomfort. This is essentially resolved, very minimally bothersome. He had been treated with Bactrim approximately a year ago. An ultrasound on 10/07/2023 showed some heterogenous echotexture to the right testicle which has been stable compared to an ultrasound from 11/15/2021. There is also a 4 mm left epididymal head cyst. Patient underwent a scrotal ultrasound on 09/09/2024 which showed again a heterogeneous nature to the right testicle but with no mass. There was a small to moderate complex right hydrocele that was unchanged. The left testicle is also heterogeneous with no mass. See Below past medical history: 03/09/2024 Chief Complaint: Follow-up (Scrotum pain ) Patient returns today complaining of a 4 to 5-month history of intermittent discomfort in the rightscrotal region. He states that the right scrotum will increase and decrease in size. He describes this more as a sensitivity to touch. A few months ago he saw a nurse practitioner when he was having more pain on the right side. She treated him with Bactrim and ordered a scrotal ultrasound that was done on 10/07/2023. This revealed a heterogeneous echotexture of the right testicle of uncertain significance but was noted to be stable compared to an ultrasound from 11/15/2021. Also noted with some increased vascularity of the right epididymis along with a 4 mm left epididymal head cyst. Patient has a history of a vasectomy approximately 20 years ago. He also states that he injured histesticles in his 20s when he was lifting heavy objects. A PSA was 1.0 on 12/31/2022. He is having no dysuria, hematuria or hematospermia. He is also concerned that the left testicle is shrinking. He tells me he has reduced smoking from 3-1/2 to 4 packs/day down to 1-1/2 packs/day. He is trying to lose weight to assist with hypertension treatment. 11/14/2022: HPI Notes: patient returns to clinic today follow-up of scrotal pain. Patient has occasional burning sensation along the right scrotum and paratesticular region that happens approximately 2 times perweek. This is most notable especially if he is out walking a lot, lifting or squatting in tight places. The patient also has erectile dysfunction that is predominantly rapid deep tumescence. The patient is having no lower urinary tract symptoms currently and postvoid residual today is 0. Previous History: ( Patient has a history of right scrotal pain which he states will occasionally occur when he takes a missed step and on 1 occasion after he sneezed violently. He states 5 minutes after that he developed some pain. He is no longer having scrotal or testicular pain. The patient had a abnormalscrotal ultrasound in the past which showed a heterogeneous abnormality. The patient had repeat scrotal ultrasound on 11/15/2021 which was normal. Patient is having no significant lower urinary tractsymptoms, weight loss, bone pain or hematuria. Review of Systems Genitourinary: Slow urination, testicle discomfort, post void dribbling. All other systems reviewed and are negative. There are no active problems to display for this patient. Past Medical History: Diagnosis Date Allergies DVT (deep venous thrombosis) (HCC) GERD (gastroesophageal reflux disease) Hypertension Past Surgical Hx: he Past Surgical History: Procedure Laterality Date polyp removed from throat VASECTOMY Social Hx:he reports that he has been smoking cigarettes. He has never used smokeless tobacco. He reports that he does not drink alcohol and does not use drugs. Social History Social History Narrative Not on file Family Hx: his family history includes Cancer in his father. Allergies Allergen Reactions Amoxicillin Penicillin Current Outpatient Medications on File Prior to Visit Medication Sig Dispense Refill candesartan (ATACAND) 16 MG tablet Take 1 tablet (16 mg total) by mouth daily. cyclobenzaprine (FLEXERIL) 10 MG tablet Take 1 tablet (10 mg total) by mouth. famotidine (PEPCID) 20 MG tablet Take 1 tablet (20 mg total) by mouth 2 (two) times daily. fluticasone propionate (FLONASE) 50 mcg/actuation nasal spray Administer 1 spray into affected nostril(s). hydroCHLOROthiazide (HYDRODIURIL) 12.5 MG tablet Take 1 tablet (12.5 mg total) by mouth daily. montelukast (SINGULAIR) 10 mg tablet Take 1 tablet (10 mg total) by mouth nightly. omeprazole (PriLOSEC) 40 MG capsule Take 1 capsule (40 mg total) by mouth. Xarelto 20 mg tablet SMARTSI Tablet(s) By Mouth Every Evening fLUoxetine (PROzac) 20 MG capsule Take 1 capsule (20 mg total) by mouth daily. No current facility-administered medications on file prior to visit. No results found for this or any previous visit (from the past 6 hours). Objective: Vitals: BP 130/80 Ht 1.854 m (6' 1 ) Wt 106.5 kg (234 lb 11.2 oz) BMI 30.96 kg/m?? Physical Exam Constitutional: Appearance: Normal appearance. Genitourinary: Comments: On genital exam the right scrotum is moderately enlarged. The left scrotum is mildly enlarged. I do not palpate obvious testicular abnormalities. I see no skin changes and no evidence of inguinal lymphadenopathy or hernia. On rectal exam prostate is approximately 25 g smooth and compressible without nodules. Neurological: Mental Status: He is alert. Psychiatric: Mood and Affect: Mood normal. Behavior: Behavior normal. Assessment: Antwon was seen today for follow-up. Diagnoses and all orders for this visit: Hydrocele, unspecified hydrocele type Abnormal finding on diagnostic imaging of right testicle - Alpha fetoprotein (AFP), tumor marker; Future - Cancel: Alpha fetoprotein (AFP), tumor marker Epididymal cyst Scrotum pain Prostate cancer screening Problem List Items Addressed This Visit None Visit Diagnoses Hydrocele, unspecified hydrocele type - Primary Abnormal finding on diagnostic imaging of right testicle Relevant Orders Alpha fetoprotein (AFP), tumor marker Epididymal cyst Scrotum pain Prostate cancer screening Plan: Will obtain PSA, alpha-fetoprotein and beta-hCG. Repeat scrotal ultrasound in February. Contact patient with results of the serologies once available. Scrotal ultrasound report and images from 09/22 reviewed today. Patient unable to provide UA today. There is no immunization history on file for this patient. Outpatient Encounter Medications as of 01/18/2025 Medication Sig Dispense Refill candesartan (ATACAND) 16 MG tablet Take 1 tablet (16 mg total) by mouth daily. cyclobenzaprine (FLEXERIL) 10 MG tablet Take 1 tablet (10 mg total) by mouth. famotidine (PEPCID) 20 MG tablet Take 1 tablet (20 mg total) by mouth 2 (two) times daily. fluticasone propionate (FLONASE) 50 mcg/actuation nasal spray Administer 1 spray into affected nostril(s). hydroCHLOROthiazide (HYDRODIURIL) 12.5 MG tablet Take 1 tablet (12.5 mg total) by mouth daily. montelukast (SINGULAIR) 10 mg tablet Take 1 tablet (10 mg total) by mouth nightly. omeprazole (PriLOSEC) 40 MG capsule Take 1 capsule (40 mg total) by mouth. Xarelto 20 mg tablet SMARTSI Tablet(s) By Mouth Every Evening fLUoxetine (PROzac) 20 MG capsule Take 1 capsule (20 mg total) by mouth daily. No facility-administered encounter medications on file as of 01/18/2025. No follow-ups on file. I have reviewed the following as needed: Edgard Bailey MD 01/18/2025 documented in this encounter Plan of Treatment Not on file documented as of this encounter Visit Diagnoses Diagnosis Hydrocele, unspecified hydrocele type- Primary Abnormal finding on diagnostic imaging of right testicle Epididymal cyst Other specified disorder of male genital organs Scrotum pain Prostate cancer screening Special screening for malignant neoplasm of prostate documented in this encounter Care Teams Employment And Claims Aide Relationship Specialty Start Date End Date Lesley Gomez, PERIOPERATIVE EDUCATOR [address] [place] [address] [place] [address] PCP - General Nurse Practitioner 03/09/24 documented as of this encounter
--- OUTSIDE RECORDS SUMMARY | 2025-01-18 18:15 | XMS_ITS | Encounter Summary ---
Author Organization [facility] [employer] Address [address] [place] [address] Care Team Providers Care Utility Agent Name Role Phone Lesley Gomez APRN Primary Care Provider Encounter Details Date Type Department Care Team (Latest Contact Info) Description 01/18/2025 6:15 PM EDT Lab Patient Walk-In [facility] Lab [address] [place] [address] Edgard Bailey MD [address] [place] [address] Abnormal finding on diagnostic imaging [...] Date Rubens rded Speak language other than Rwandan at home Not on file 01/22/2024 Want [...] on file documented as of this encounter Plan of Treatment Pending Results Name Type Priority Associated Diagnoses Date /Time Alpha Fetoprotein Tumor Marker(SENDOUT) Lab Routine Abnormal finding on diagnostic imaging of right testicle 01/18/2025 12:39 PM EDT documented as of this encounter Visit Diagnoses Diagnosis Abnormal finding on diagnostic imaging of right testicle- Primary documented in this encounter Care Teams Utility Agent Relationship Specialty Start Date End Date Lesley Gomez, GREENSKEEPER HEAD [address] [place] [address] PCP - General Nurse Practitioner 03/09/24 documented as of this encounter
--- OUTSIDE RECORDS SUMMARY | 2025-01-18 18:30 | XMS_ITS | Encounter Summary ---
Author Organization [facility] [employer] Address [address] [place] [address] Care Team Providers Care Software Project Manager Name Role Phone Lesley Gomez APRN Primary Care Provider Encounter Details Date Type Department Care Team (Late st Contact Info) Description 01/18/2025 6:30 PM EDT Lab Patient Walk-In [facility] Lab [address] [place] [address] Edgard Bailey MD [address] [facility] [address] [place] [address] Abnormal finding Social History Tobacco Use Types Packs/Day Years [...] Date Rubens rded Speak language other than [place] Sudanese at home Not on file 01/22/2024 Want [...] Name Type Priority Associated Diagnoses Date /Time Beta-hCG, Serum Quant Tumor Marker(SENDOUT) Lab Routine Abnormal finding 01/18/2025 12:39 PM EDT documented as of this encounter Visit Diagnoses Diagnosis Abnormal finding Other nonspecific abnormal finding documented in this encounter Care Teams Software Project Manager Relationship Specialty Start Date End Date Lesley Gomez, INFORMAL WAITER/WAITRESS [address] [facility] [place] [address] PCP - General Nurse Practitioner 03/09/24 documented as of this encounter
--- OUTSIDE RECORDS SUMMARY | 2025-01-19 07:35 | XMS_ITS | Encounter Summary ---
Author Organization [facility] Address [address] [place] [address] Care Team Providers Care Fashion Consultant Selling Name Role Phone Lesley Gomez APRN Primary Care Provider Encounter Details Date Type Department Care Team (Latest Contact Info) Description 01/18/2025 Travel Social History Tobacco Use Types Packs/Day Years [...] Date Rubens rded Speak language other than Setswana at home Not on file 01/22/2024 Want [...] as of this encounter Plan of Treatment Not on file documented as of this encounter Visit Diagnoses Not on filedocumented in this encounter Care Teams Fashion Consultant Selling Relationship Specialty Start Date End Date Lesley Gomez, DOZER OPERATOR [address] [facility] [place] [address] PCP - General Nurse Practitioner 03/09/24 documented as of this encounter
--- OUTSIDE RECORDS SUMMARY | 2025-01-19 07:35 | XMS_ITS | Encounter Summary ---
Author Organization [facility] Address [address] [place] [address] Care Team Providers Care Butt Presser Name Role Phone Lesley Gomez APRN Primary Care Provider [phone] Nolan Moeller MD Unavailable Reason for Visit * Reason Comments Med Refill Encounter Details Date Type Department Care Team (Late st Contact Info) Description 12/19/2024 Refill [facility] [address] [place] [address] Marylin Castillo APRN [address] [place] [address] Generalized anxiety disorder Social History Tobacco Use [...] place to sleep or slept in a residential (including now)? No 02/24/2024 PHQ-9 Answer Date [...] any time in the past 12 m [facility], were you homeless or living in a residential (including now)? No 12/14/2024 Utilities Answer Date [...] as of this encounter Miscellaneous Notes * Telephone Encounter - Danie Gloria, PharmD - 12/22/2024 1:45 PM EDT 1 medication(s) has been approved per protocol. documented in this encounter Plan of Treatment Not on file documented as of this encounter Visit Diagnoses Diagnosis Generalized anxiety disorder documented in this encounter Additional Health Concerns Assessment Noted Time PHQ-9 Depression Total Score: 10 025 9:26 AM EDT A fall risk assessment has been complete d for the patient 12/14/2024 9:31 AM EDT A Body Mass Index follow-up plan has been documented for the patient 12/14/2024 9:52 AM EDT documented as of this encounter Care Teams Butt Presser Relationship Specialty Start Date End Date Lesley Gomez APRN [address] [place] [phone] PCP - General 12/09/20 Nolan Moeller MD [address] [facility] [address] [place] [address] Consulting Physician Neurology 01/13/24 documented as of this encounter
--- OUTSIDE RECORDS SUMMARY | 2025-01-19 07:35 | XMS_ITS | Encounter Summary ---
Author Organization [facility] Address [address] [place] [address] Care Team Providers Care Automatic Glove Former Name Role Phone Lesley Gomez APRN Primary Care Provider Encounter Details Date Type Department Care Team (Late st Contact Info) Description 03/09/2024 Outside Orders [facility] Admitting [address] [place] [address] Edgard Bailey MD [address] [facility] [address] [place] [address] Social History Tobacco Use Types Packs/Day Years [...] Date Rubens rded Speak language other than Slovenian at home Not on file 01/22/2024 Want [...] on filedocumented in this encounter Care Teams Automatic Glove Former Relationship Specialty Start Date End Date Lesley Gomez, CHANNEL BUSINESS MANAGER [address] [place] [address] PCP - General Nurse Practitioner 03/09/24 documented as of this encounter
--- OUTSIDE RECORDS SUMMARY | 2025-01-19 07:35 | XMS_ITS | Encounter Summary ---
Author Organization [facility] Address [address] [place] [address] Care Team Providers Care Patcher Helper Name Role Phone Lesley Gomez APRN Primary Care Provider [phone] Nolan Moeller MD Unavailable Reason for Visit * Reason Onset Date Comments HCN - Patient Message 01/05/2025 Encounter Details Date Type Department Care Team (Late st Contact Info) Description 01/05/2025 Telephone [facility] Medicine [address] [place] [address] Lesley Gomez APRN [address] [place] [address] HCN - Patient Message Social History Tobacco Use Types Packs/Day Years [...] place to sleep or slept in a correction (including now)? No 02/24/2024 PHQ-9 Answer Date [...] any time in the past 12 m [facility], were you homeless or living in a correction (including now)? No 12/14/2024 Utilities Answer Date [...] encounter Miscellaneous Notes * Telephone Encounter - Makenna Cai - 01/05/2025 3:29 PM EDT Msg left with Dr. Buck's office to verify receipt of referral * Telephone Encounter - Yahaira Fuentes - 01/05/2025 11:56 AM EDT Clinical Concern/Question Reason for Call: pt's calling to verify his gastroenterology referral was faxed to Dr. Dawson anderson in [facility]. Please call and advise Thanks Best contact number: [phone] (mobile) Optimal time of day to reach caller: ANYTIME Additional comments/information from caller: None Note: Please do not reply to this message. Follow-up communication and further actions as a result of this message need to be communicated with the patient directly, if the patient is not active onMyChart. If the patient is active on MyChart, they will receive notification of the communication/outcome via [employer]. documented in this encounter Plan of Treatment Not on file documented as of this encounter Visit Diagnoses Not on filedocumented in this encounter Additional Health Concerns Assessment Noted Time PHQ-9 Depression Total Score: 10 025 9:26 AM EDT A fall risk assessment has been complete d for the patient 12/14/2024 9:31 AM EDT A Body Mass Index follow-up plan has been documented for the patient 12/14/2024 9:52 AM EDT documented as of this encounter Care Teams Patcher Helper Relationship Specialty Start Date End Date Lesley Gomez APRN [address] [place] [address] PCP - General 12/09/20 Nolan Moeller MD [address] [facility] [address] [place] [phone] Consulting Physician Neurology 01/13/24 documented as of this encounter
--- OUTSIDE RECORDS SUMMARY | 2025-01-19 07:35 | XMS_ITS | Encounter Summary ---
Author Organization [facility] Address [address] [place] [address] Care Team Providers Care Head Doffer Name Role Phone Lesley Gomez APRN Primary Care Provider [phone] Nolan Moeller MD Unavailable Reason for Visit * Reason Onset Date Comments HCN - Patient Message 12/23/2024 Encounter Details Date Type Department Care Team (Late st Contact Info) Description 12/23/2024 Telephone [facility] Medicine [address] [place] [address] Lesley Gomez APRN [address] [place] [address] HCN - Patient Message Social [...] place to sleep or slept in a long term (including now)? No 02/24/2024 PHQ-9 Answer Date [...] any time in the past 12 m [facility], were you homeless or living in a long term (including now)? No 12/14/2024 Utilities Answer Date [...] encounter Miscellaneous Notes * Telephone Encounter - Kinga Griffin - 12/24/2024 10:26 AM EDT The referral is for consult for follow up on fatty liver, outside imaging is under media from [facility] that should be sent with referral. * Telephone Encounter - Makenna Cai - 12/24/2024 9:16 AM EDT I have faxed the referral to Dr. Buck's office, but the order was for consult, not colonoscopy. Is this correct? * Telephone Encounter - Kinga Griffin - 12/24/2024 8:23 AM EDT Patient would like his Gastro referral sent to Dr. Buck, it looks like it was sent to Dr. Del Valle. * Telephone Encounter - Ines Colindres - 12/23/2024 2:56 PM EDT Patient Phone Message Reason for Call:He is asking for update on his referral for a colonoscopy. Please call Best contact number and optimal time of day to reach caller: [phone] Note: Please do not reply to this message. Follow-up communication and further actions as a result of this message need to be communicated with the patient directly, if the patient is not active onMyChart. If the patient is active on MyChart, they will receive notification of the communication/outcome via [employer]. documented in this encounter Plan of Treatment [...] documented as of this encounter Care Teams Head Doffer Relationship Specialty Start Date End Date Lesley Gomez APRN [address] [place] [phone] PCP - General 12/09/20 Nolan Moeller MD [address] [facility] [address] [place] [address] Consulting Physician Neurology 01/13/24 documented as of this encounter
--- OUTSIDE RECORDS SUMMARY | 2025-01-19 07:35 | XMS_ITS | Encounter Summary ---
Author Organization [facility] Address [address] [place] [address] Care Team Providers Care Back Closer Name Role Phone Lesley Gomez APRN Primary Care Provider [phone] Nolan Moeller MD Unavailable Reason for Visit * Reason Comments Med Refill Encounter Details Date Type Department Care Team (Late st Contact Info) Description 11/20/2024 Refill [facility] [address] [place] [address] Marylin Castillo APRN [address] [place] [address] Generalized anxiety disorder Social History [...] afraid of your partner or ex-partner? No 09/30/2024 Within the last year, have y ou been humiliated or emotionally abused in other ways by your partner or ex-partner? No Within the last year, have y ou been kicked, hit, slapped, or otherwise physically hurt by your partner or ex-partner? No 09/30/2024 Within the last year, have y ou been raped or forced to have any kind of sexual activity by your partner or ex-partner? No 09/30/2024 Overall Financial Resource Strain (CARDIA) Answe r Date Recorded How hard is it for you to pa y for the very basics like food, housing, medical care, and heating? Somewhat hard 11/22/2022 PHQ-2 Answer Date Recorded Patient Health Questionnaire-2 Score 4 09/15/2024 Hunger Vital Sign Answer Date Recorded Within the past 12 months, y ou worried that your food would run out before you got the money to buy more. Never true 10/01/19 25 Within the past 12 months, t he food you bought just didn't last and you didn't have money to get more. Never true 09/30/2024 PRAPARE - Transportation Answer Date Re corded In the past 12 months, has l ack of transportation kept you from medical appointments or from getting medications? No 11/2024 In the past 12 months, has l ack of transportation kept you from meetings, work, or from getting things needed for daily living? No 09/30/2024 Housing Stability Vital Sign Answer Rik e [...] place to sleep or slept in a fdc (including now)? No 02/24/2024 PHQ-9 Answer Date Recorded Patient Health Questionnaire-9 Score 10 09/15/2024 Housing Stability Vital Sign Answer Rik e Recorded In the last 12 months, was t here a time when you were not able to pay the mortgage or rent on time? No 09/30/2024 In the past 12 months, how m any times have you moved where you were living? 0 09/30/2024 At any time in the past 12 m [facility], were you homeless or living in a fdc (including now)? No 09/30/2024 Utilities Answer Date Recorded In the past 12 months has th e electric, gas, oil, or water company threatened to shut off services in your home? No 09/30/2024 PHQ-2A Answer Date Recorded Patient Health Questionnaire-2 [...] Time PHQ-9 Depression Total Score: 10 025 8:39 AM EST A fall risk assessment has been complete d for the patient 02/24/2024 10:01 AM EDT A Body Mass Index follow-up plan has been documented for the patient 10/02/2024 9:18 AM EST documented as of this encounter Care Teams Back Closer Relationship Specialty Start Date End Date Lesley Gomez APRN [address] [place] [phone] PCP - General 12/09/20 Nolan Moeller MD [id number] [place] [address] Consulting Physician Neurology 01/13/24 documented as of this encounter
--- OUTSIDE RECORDS SUMMARY | 2025-01-19 07:35 | XMS_ITS | Clinical Summary ---
Author Organization [facility] Address [address] [place] [address] Care Team Providers Care Fur Comber Name Role Phone JasonAvinashwilber Vanessa APRN Primary Care Provider [phone] Nolan Moeller MD Unavailable Allergies Active Allergy Reactions Criticality Noted Date Comments Amoxicillin Anaphylaxis High 10/22/2014 Cannot breathe Candesartan Rash Low 02/24/2024 Penicillins Anaphylaxis High 10/22/2014 Cannot breathe Medications meclizine (Antivert) 12.5 MG tablet TAKE 1 TABLET EVERY 6 HOURS NEEDED FOR DIZZINESS. 8 Active Loratadine 10 MG capsule Take 10 mg by mouth 1 (one) time each day. 1 Active rivaroxaban (Xarelto) 20 MG tabletIndicatio ns:PE (pulmonary thromboembolism ) (CMS/HCC) Take 1 tablet (20 mg) by mouth 1 (one) time each day. Take with food. 30 tablet 11 3 Active famotidine (Pepcid) 20 MG tabletIndicatio ns:Nausea Take 1 tablet by mouth twice daily 180 tablet 2 4 Active atorvastatin (Lipitor) 10 MG tabletIndicatio ns:Dyslipidemia Take 1 tablet (10 mg) by mouth 1 (one) time each day. 90 tablet 2 4 Active omeprazole (PriLOSEC) [address] capsuleIndicati ons:Gastroesoph ageal reflux disease without esophagitis Take 1 capsule (40 mg) by mouth 1 (one) time each day. 90 capsule 2 4 Active hydrOXYzine HCl (Atarax) 25 MG tabletIndicatio ns:Generalized anxiety disorder Take 1 tablet (25 mg) by mouth every 6 hours as needed for anxiety. 30 tablet 1 5 Active hydroCHLOROthia zide (HYDRODiuril) 25 MG tablet Take 1 tablet (25 mg) by mouth daily. Active cyclobenzaprine (Flexeril) 10 MG tabletIndicatio ns:Arthritis, multiple joint involvement Take 1 tablet by mouth at night as needed for muscle spasms. 90 tablet 3 5 Active FLUoxetine (PROzac) 20 MG capsuleIndicati ons:Generalized anxiety disorder Take 1 capsule by mouth once daily 90 capsule 3 5 Active FLUoxetine (PROzac) 20 MG capsuleIndicati ons:Generalized anxiety disorder Take 1 capsule by mouth once daily 30 capsule 5 025 Discontinued sulfamethoxazol e-trimethoprim (Bactrim DS) 800-160 MG tabletIndicatio ns:Right chronic serous otitis media Take 1 tablet by mouth 2 times a day for 7 days. 14 tablet 5 025 Active Problems Problem Noted Date Diagnosed Date Pulmonary embolism 11/22/2022 Generalized anxiety disorder 09/28/2020 Erectile dysfunction 05/06/2018 Insomnia 07/03/2017 Episodic ataxia 11/07/2016 Headache, variant migraine 05/09/2016 Dyslipidemia 02/03/2016 Pulmonary embolism and infarction 10/23/2014 Esophageal reflux 10/23/2014 Fatty liver 10/23/2014 Encounters Date Type Department Care Team Description 01/05/2025 Telephone [facility] [address] [place] [address] Lesley Gomez APRN HCN - Patient Message 12/23/2024 Telephone [facility] [address] [place] [address] Lesley Gomez APRN HCMarce - Patient Message 12/19/2024 Refill [facility] [address] [place] [address] Marylin Castillo APRN Generalized anxiety disorder 12/14/2024 9:20 AM EDT Office Visit [facility] [address] [facility] [place] [address] Lesley Gomez APRN Right chronic serous otitis media (Primary Dx); Generalized anxiety disorder 12/14/2024 Travel 12/11/2024 Telephone [facility] [address] [facility] [place] [address] Lesley Gomez APRN HCN - Patient Message 11/20/2024 Refill [facility] [address] [place] [address] Marylin Castillo APRN Generalized anxiety disorder 11/17/2024 Refill [facility] [address] [place] [address] Lesley Gomez APRN Arthritis, multiple joint involvement 11/03/2024 Telephone [facility] [address] [place] [address] Lesley Gomez APRN 10/27/2024 Telephone [facility] [address] [place] [address] Lesley Gomez APRN HCN Clinical Concern/Question (PA ) 10/20/2024 Orders Only [facility] [address] [place] [address] Marylin Castillo APRN RUQ abdominal pain (Primary Dx) from Last 3 Months Family History Medical History Relation Name Comments Migraines Mother Hyperlipidemia Other 1 Hypertension Other 2 Relation Name Status Comments Mother Other 1 Other 2 Social History Tobacco Use Types Packs/Day Years Used Date Smoking Tobacco: Every Day Cigarettes 1 20 Passive Smoke Exposure: Current Smokeless Tobacco: Never Tobacco Cessation:Ready to Q uit: Not Asked; Counseling Given: Not Answered Alcohol Use Standard Drinks/Week Comments Yes 0 [...] place to sleep or slept in a group home (including now)? No 02/24/2024 PHQ-9 Answer [...] any time in the past 12 m [facility], were you homeless or living in a group home (including now)? No 12/14/2024 Utilities Answer Date Recorded In the past 12 months has [employer], gas, oil, or water company threatened to shut off services in your home? No 12/14/2024 PHQ-2A Answer Date Recorded Patient Health Questionnaire-2 Score 0 05/08/2023 Sex and Gender Information Value Date Recorded Sex Assigned at Not on file Legal Sex Male 6:38 PM EDT Gender Identity Not on file Sexual Orientation Not on file Last Filed Vital Signs Vital Sign Reading [...] Mass Index 30.06 12/14/2024 9:23 AM EDT Plan of Treatment Health Maintenance Due Date Last Done Comments [facility]-HIV Screening 1977 [facility]-Hepatitis C Screening 1977 [facility]-Medicare Annual Wellness (AWV) 1977 [facility]-Infant/Child/Adol SDOH Screenings 1977 [facility]-DTaP,Tdap,and Td Vaccines (1 - Tdap) 1996 [facility]-Hepatitis A Vaccines (1 of 2 - Risk 2-dose series) 1996 [facility]-Hepatitis B Vaccines (1 of 3 - 19+ 3-dose series) 1996 [facility]-Pneumococcal Vaccine: Pediatrics (0 to 5 Years) and At-Risk Patients (6 to 49 Years) (1 of 2 - PCV) 1996 CT Colonography 2022 FIT-DNA 2022 FIT 2022 FOBT 2022 Sigmoidoscopy 2022 [id number] Vaccine ( season) 2024 [facility]-Influenza Vaccine (Season Ended) 2025 Colonoscopy 04/20/2025 04/20/2015, 04/20/2015 [facility]-Colorectal Cancer Screening 04/20/2025 [facility]- SDOH Screenings 06/16/2025 [facility]-Adult SDOH Screenings 06/16/2025 12/14/2024 [facility]-Depression Screening 12/14/2025 12/14/2024, 11/26 [facility]-Zoster Vaccines (1 of 2) 2027 [facility]-Obesity Intervention Completed 025, 10/01/2024, 09/30/2024, Additional history exists HPV Vaccines Aged Out No longer eligi ble based on patient's age to complete this topic [facility]-HIB Vaccines Aged Out No longer e ligible based on patient's age to complete this topic [facility]-IPV Vaccines Aged Out No longer e ligible based on patient's age to complete this topic [facility]-Rotavirus Vaccines Aged Out No lo nger eligible based on patient's age to complete this topic Procedures Procedure Name Priority Date/Time Associated Diagnosis Comments COLONOSCOPY EXTERNAL RESULT 04/20/2015 from Last 3 Months or Most Recently Relevant to Health Maintenance Results * COLONOSCOPY EXTERNAL RESULT (04/20/2015) Anatomical Region Laterality Modality Endoscopy Narrative 04/20/2015 Ordered by an unspecified provider. us External Provider GI PROCEDURE ORDERABLES Final Result from Last 3 Months or Most Recently Relevant to Health Maintenance Insurance [facility] MEDICARE Care Teams Fur Comber Relationship Specialty Start Date End Date Lesley Gomez APRN [address] [place] [address] PCP - General 12/09/20 Nolan Moeller MD [address] [place] [phone] Consulting Physician Neurology 01/13/24
--- OUTSIDE RECORDS SUMMARY | 2025-01-19 07:35 | XMS_ITS | Encounter Summary ---
Author Organization [facility] [employer] Address [address] [place] [address] Care Team Providers Care Sustainable Agriculture Specialist Name Role Phone Lesley Gomez APRN Primary Care Provider Encounter Details Date Type Department Care Team (Late st Contact Info) Description 01/18/2025 Outside Orders [facility] Admitting [address] [place] [address] Edgard Bailey MD [address] [facility] [address] [place] [address] Abnormal finding (Primary Dx) Social History Tobacco Use Types [...] Date Rubens rded Speak language other than Kiswahili at home Not on file 01/22/2024 Want [...] Routine Abnormal finding 01/18/2025 12:39 PM EDT Scheduled Orders Name Type Priority Associated Diagnoses Orde r Schedule Beta-hCG, Serum Quant Tumor Marker(SENDOUT) Lab Routine Abnormal finding Expected: 01/18/2025 (Approximate), Expires: 04/18/2025 documented as of this encounter Visit Diagnoses Diagnosis Abnormal finding- Primary Other nonspecific abnormal finding documented in this encounter Care Teams Sustainable Agriculture Specialist Relationship Specialty Start Date End Date Lesley Gomez, PARTS COUNTER REPRESENTATIVE [address] [place] [address] [place] [address] PCP - General Nurse Practitioner 03/09/24 documented as of this encounter
--- OUTSIDE RECORDS SUMMARY | 2025-01-19 07:35 | XMS_ITS | Referral Summary ---
Author Organization [employer] Address [address] [place] [address] Care Team Providers Care Pile Driver Engineer Name Role Phone Lesley Gomez APRN Primary Care Provider Encounters Date Type Department Care Team Description 01/18/2025 Travel 01/18/2025 6:30 PM EDT Lab Patient Walk-In [facility] Lab [address] [place] [address] Edgard Bailey MD Abnormal finding 01/18/2025 Outside Orders [facility] Admitting [address] [place] [address] Edgard Bailey MD Abnormal finding (Primary Dx) 01/18/2025 6:15 PM EDT Lab Patient Walk-In [facility] [address] [place] [address] Edgard Bailey MD Abnormal finding on diagnostic imaging of right testicle (Primary Dx) 01/18/2025 11:45 AM EDT Office Visit [facility]rology - [facility] [address] [facility] [place] [address] Edgard Bailey MD Hydrocele, unspecified hydrocele type (Primary Dx); Abnormal finding on diagnostic imaging of right testicle; Epididymal cyst; Scrotum pain; Prostate cancer screening from Last 3 Months Allergies Active Allergy Reactions Criticality Noted Date Comments Amoxicillin 03/09/2024 Penicillin 03/09/2024 Medications candesartan (ATACAND) 16 MG tablet Take 1 tablet (16 mg total) by mouth daily. Active cyclobenzaprine (FLEXERIL) 10 MG tablet Take 1 tablet (10 mg total) by mouth. 3 Active famotidine (PEPCID) 20 MG tablet Take 1 tablet (20 mg total) by mouth 2 (two) times daily. 4 Active fluticasone propionate (FLONASE) 50 mcg/actuation nasal spray Administer 1 spray into affected nostril(s). 4 02/04/20 25 Active montelukast (SINGULAIR) 10 mg tablet Take 1 tablet (10 mg total) by mouth nightly. 4 Active omeprazole (PriLOSEC) 40 MG capsule Take 1 capsule (40 mg total) by mouth. 3 Active Xarelto 20 mg tablet SMARTSI Tablet(s) By Mouth Every Evening 4 Active fLUoxetine (PROzac) 20 MG capsule Take 1 capsule (20 mg total) by mouth daily. Active hydroCHLOROthia zide (HYDRODIURIL) 12.5 MG tablet Take 1 tablet (12.5 mg total) by mouth daily. Active Social History Tobacco Use Types Packs/Day Years [...] Date Rubens rded Speak language other than Jamaican at home Not on file 01/22/2024 Want [...] Mass Index 30.96 01/18/2025 11:36 AM EDT Plan of Treatment Not on file [place] [address] MEDICARE PART A B MEDICARE HMO Care Teams Pile Driver Engineer Relationship Specialty Start Date End Date Lesley Gomez, BLENDER LABORER [address] [place] [address] [place] [address] PCP - General Nurse Practitioner 03/09/24
--- OUTSIDE RECORDS SUMMARY | 2025-01-19 07:35 | XMS_ITS | Data Portability ---
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 Examination is unremarkable today. Have offered to treat patient's erectile dysfunction with oral medication, however, he defers. I have offered to perform prostate cancer screening, however, he would like to defer this till possibly the next visit. Also discussed the use of a cord block should his scrotal pain become more limiting in his daily activities. For now return to clinic in 1 year with examination and UA. [email or web address] Not available 11/14/2022 16:40:55 Plan of Treatment Reminders Order Date Submit Date Provider Last Modified By Organization Details Last Modified Time Details Appointments None recorded. Lab CMP, serum or plasma 2024 025 [facility] (Lab), [address], [place], [address], 5 04:15:06 CBC 2024 025 [facility] (Lab), [address], [place], [address], 5 04:15:06 nonalcoholi c steatohepat itis + fibrosis panel, serum or plasma 2024 025 [facility] (Lab), [address], [place], [address], 5 04:15:08 PT/INR 2024 025 [facility]), [facility] [address], [place], [address], 5 04:15:08 ammonia, blood 2024 025 [facility] (Lab), [address], [place], [address], 5 04:15:08 HbA1c (hemoglobin A1c), blood 2024 025 [facility] (Lab), [address], [place], [address], 5 04:15:08 lipid panel, serum 2024 025 [facility] (Lab), [address], [place], [address], 5 04:15:09 urinalysis, dipstick 2022 023 [email or web address] [facility], [facility], [address], [place], [address], 3 14:05:17 Referral None recorded. Procedures None recorded. Surgeries None recorded. Imaging US, scrotum - No Prior Auth Required, Per Cecelia Hull Ref # [id number] 2023 024 [facility] [address], [place], [address], 4 13:20:21 Medication Orders Bactrim DS 800 mg-160 mg tablet 2023 024 [email or web address] [facility], [address], [place], [address], 4 10:15:51 Patient TargetsNo targets recorded. Patient InstructionsNo instructions recorded. Reason for Referral None Reported. Results Created Date Observation Date Name Description Value Unit Range Abnormal Flag Note LastModifiedBy Organization Detail LastModifiedTime 11/15/1911/14/2022 urina lysis , dipst ick Leukocytes (reference range) negati ve Not Available [address] [place] [address], [address], 11/14/2022 14:04:53 11/15/19 23 11/14/2022 urina lysis , dipst ick Nitrite (reference range:) negati ve Not Available [address] [address], [place], [address], 11/14/2022 14:04:53 11/15/19 23 11/14/2022 urina lysis , dipst ick Urobilinogen (reference range) 0.2 Not Available [facility] [address], [place], [address], 11/14/2022 14:04:53 11/15/19 23 11/14/2022 urina lysis , dipst ick Protein (reference range) negati ve Not Available [address] [address], [place], [address], 11/14/2022 14:04:53 11/15/19 23 11/14/2022 urina lysis , dipst ick pH (reference range 5-8.5) 5.0 Not Available [facility], [place], [address], 11/14/2022 14:04:53 11/15/19 23 11/14/2022 urina lysis , dipst ick Blood (reference range:) negati ve Not Available [address], [address], 11/14/2022 14:04:53 11/15/19 23 11/14/2022 urina lysis , dipst ick Specific [place] (reference range) 1.005 Not Available [facility] [address] [place] [address] [address], [place], [address], 11/14/2022 14:04:53 11/15/19 23 11/14/2022 urina lysis , dipst ick Ketone (reference range) negati ve Not Available [facility] [address] [place] [address] [address], [place], [address], 11/14/2022 14:04:53 11/15/19 23 11/14/2022 urina lysis , dipst ick Bilirubin (reference range) negati ve Not Available [address], [place], [address], 11/14/2022 14:04:53 11/15/19 23 11/14/2022 urina lysis , dipst ick Glucose (reference range) negati ve Not Available [address], [place], [address], 11/14/2022 14:04:53 11/15/19 23 11/14/2022 urina lysis , dipst ick Color (reference range: yellow-brown ) Yellow Not Available [address], [place], [address], 11/14/2022 14:04:53 01/01/20 23 12/31/2022 PROST ATE SPECI FIC AG (PSA) prostate specific Ag (PSA) 1.0 NG/mL 0-4.0 Not Available [facility]) [address] [facility], [place], [address], 12/31/2022 13:27:31 10/07/19 24 10/07/2023 US, scrot um No observ ation record ed. [facility] [address], [place], [address], 10/08/2023 15:13:04 Result Notes None recorded. Problems Name Problem SNOMED Code Status Onset Date Resolution Date Notes Provider Name and Address Organization Details Recorded Time Steatotic liver disease Active 2024 Gerber Perkins PA-C [address], [place], [address] , [place] - [facility] - [place] & [place] 5 10:11:34 Right upper quadrant pain 972107308 Active 2024 Gerber Perkins PA-C [address], [place], [address] , [place] - [facility] [place] & [place] 5 10:22:19 Pain in scrotum Active 2022 Lizeth Crase null, [place] - [facility] - [place] & [place] 3 09:25:33 Imaging finding 046276840 Active 2022 Lizeth Crase null, [place] - [facility] [place] & [place] 3 09:26:02 Long-term current use of anticoagulant 894003533 Active 2022 Lizeth Crase null, [place] - [facility] [place] & [place] 3 09:26:57 Problem Notes None recorded. Medical Equipment None Reported. Allergies Allergen ID Allergen Name Allergen Category Reaction Reaction Severity Criticality Documentation Date Start Date Code Code System Note Provider Name and Address Organization Details Recorded Time 37468 Product containin g penicilli n (product) medicatio n Not available Not available Not available 11/27/2022 50285 8001 SNOMED Lizeth Crase null, [place] - [facility] - [place] & [place] 3 09:24:58 Medications Name Sig Start Date Stop Date Status Note LastModified by Organization Details LastModified Time cyclobenzap rine 10 mg tablet TAKE 1 TABLET BY MOUTH AT NIGHT NEEDED FOR MUSCLE SPASM active Not Available Not Available No t Available venlafaxine ER 75 mg capsule,ext ended release 24 hr 09/30 completed Not Available Not Available Not Available ropinirole 1 mg tablet TAKE 1 TABLET BY MOUTH ONCE DAILY AT NIGHT 11/27 completed Not Available Not Available Not Available atorvastati n 10 mg tablet TAKE 1 TABLET BY MOUTH ONCE DAILY active Not Available Not Available No t Available azithromyci n 250 mg tablet TAKE 2 TABLETS BY MOUTH ON DAY 1, AND THEN TAKE 1 TABLET BY MOUTH ONCE A DAY ON DAY 2 THROUGH DAY 5 09/30 completed Not Available Not Available Not Available prednisone 20 mg tablet TAKE 2 TABLETS BY MOUTH ONCE DAILY FOR 5 DAYS 11/27 completed Not Available Not Available Not Available sulfamethox azole 800 mg-trimetho prim 160 mg tablet TAKE 1 TABLET BY MOUTH TWICE DAILY FOR 7 DAYS active Not Available Not Available No t Available omeprazole 40 mg capsule,del ayed release TAKE 1 CAPSULE BY MOUTH ONCE DAILY active Not Available Not Available No t Available famotidine 20 mg tablet TAKE 1 TABLET BY MOUTH TWICE DAILY active Not Available Not Available No t Available dicyclomine 20 mg tablet TAKE 1 TABLET BY MOUTH 4 TIMES DAILY NEEDED (ABDOMINA L PAIN OR CRAMPS active Not Available Not Available No t Available promethazin e 25 mg tablet TAKE 1 TABLET BY MOUTH EVERY 6 HOURS NEEDED FOR NAUSEA OR VOMITING 09/30 completed Not Available Not Available Not Available candesartan 16 mg tablet TAKE 1 TABLET BY MOUTH ONCE DAILY active Not Available Not Available No t Available hydrocortis one 2.5 % topical cream APPLY TO FACE AND SHOULDER TWICE A DAY FOR 14 DAYS active Not Available Not Available No t Available montelukast 10 mg tablet TAKE 1 TABLET BY MOUTH ONCE DAILY AT NIGHT active Not Available Not Available No t Available hydrochloro thiazide 25 mg tablet TAKE 1 TABLET BY MOUTH ONCE DAILY active Not Available Not Available No t Available azelastine 137 mcg (0.1 %) nasal spray USE 2 SPRAYS IN EACH NOSTRIL AT BEDTIME active Not Available Not Available No t Available methylpredn isolone 4 mg tablets in a dose pack TAKE BY MOUTH DIRECTED ON INSIDE OF PACKAGE 09/30 completed Not Available Not Available Not Available cefdinir 300 mg capsule TAKE 1 CAPSULE BY MOUTH TWICE DAILY FOR 10 DAYS 09/30 completed Not Available Not Available Not Available fluoxetine 20 mg capsule TAKE 1 CAPSULE BY MOUTH ONCE DAILY active Not Available Not Available No t Available fluticasone propionate 50 mcg/actuati on nasal spray,suspe nsion USE 1 SPRAY IN EACH NOSTRIL ONCE DAILY active Not Available Not Available No t Available Xarelto 20 mg tablet TAKE 1 TABLET BY MOUTH ONCE DAILY IN THE EVENING WITH MEALS active Not Available Not Available No t Available Vitals Date Recorded Body height Body mass index (BMI) Body weight Body temperature Systolic blood pressure Diastolic blood pressure Provider Name and Address Organization Details Last Updated DateTime 4 187.96 cm 30.2 kg/m2 925490. 21 g 97.7 [degF] 132 mm[Hg] 76 mm[Hg] Lizethankit MATHIAS - [facility] & [place] 4 10:05:25 Date Recorded Body height Body mass index (BMI) Body weight Body temperature Systolic blood pressure Diastolic blood pressure Provider Name and Address Organization Details Last Updated DateTime 4 187.96 cm 30.2 kg/m2 578033. 21 g 98 [degF] 122 mm[Hg] 76 mm[Hg] Lizeth Benedict [place] - [facility] & [place] 4 09:59:16 Date Recorded Body height Body mass index (BMI) Body weight Body temperature Systolic blood pressure Diastolic blood pressure Provider Name and Address Organization Details Last Updated DateTime 4 187.96 cm 30.6 kg/m2 068942. 98 g 98.8 [degF] 126 mm[Hg] 74 mm[Hg] Lizethankit MATHIAS - [facility] & [place] 4 13:43:35 Date Recorded Body height Body mass index (BMI) Body weight Provider Name and Address Organization Details Last Updated DateTime 11/14/2022 187.96 cm 30.2 kg/m2 349199.21 g María Elena MATHIAS - [facility] & [place] 11/14/2022 14:01:04 Date Recorded Body weight Body mass index (BMI) Body height Body temperature Oxygen saturation Oxygen saturation in Arterial blood by Pulse oximetry Heart rate Systolic blood pressure Diastolic blood pressure Provider Name and Address Organization Details Last Updated DateTime 5 203738. 54 g 30 kg/m2 187.96 cm 97.3 [degF] 96 % 96 % 81 /min 131 mm[Hg] 54 mm[Hg] Lizeth Geo [place] - [facility] & [place] 09:37:40 Social History Question Answer Notes LastModified by Organizat ion Details LastModified Time Tobacco Smoking Status Former Smoker Lizeth cancino [place] - [facility] & [place] 11/27/2022 09:31:18 When Did You Quit Smoking? 16+yearssinc elastcigaret te Information not available 11/27/2022 Sex: Unknown Functional Status Question Answer Note LastModified by Organizat ion Details LastModified Time Do you use any illicit or recreational drugs? No Information not available 11/27/2022 What is your level of alcohol consumption? None Information not available 11/27/2022 Mental Status None recorded. Family History Nothing Reported Notes:Mother-thyroid Disorde r(Alive) Father- testicular cancer() Medical History No medical history recorded. Past Encounters Encounter ID Performer Location Encounter Start Date Encounter Closed Date Diagnosis/Indication Diagnosis SNOMED-CT Code Diagnosis ICD10 Code Diagnosis Note [id number] Edgard Bailey MD [facility] [address] [place] [address],[address] [place] [address] 4 11/14/2022 13:30:51 11/14/2022 14:23:26 Retention of urine 546765952 R33.9 Pain in scrotum N50.82 [id number] Mary Jo Radford NP, S [facility] [address] [place] [address],[address] [place] [address] 4 10/01/2023 09:29:10 10/01/2023 10:13:11 Pain in scrotum 28257549 N50.82 Physical exam findings discussed with pt. Will order Scrotal US. Discussed to wear supportive underwear. RTC will be determined once Scrotal US results received Long-term current use of anticoagulant 615868744 Z79.01 [id number] Mary Jo Radford NP, S [facility] [address] [place] [address],[address] [place] [address] 4 10/09/2023 09:23:06 10/09/2023 10:13:43 Pain in scrotum 66920062 N50.82 pt voided prior to appointmen tscrotal ultrasound results reviewed and discussed with patient clinic today. We will put patient on Bactrim DS empiricall y. Discussed supportive underwear. Long-term current use of anticoagulant 211259889 Z79.01 [id number] Mary Jo Radford NP, S [facility] [address] [facility] [place] [address] 11/13/2023 12:37:25 11/13/2023 14:03:43 Pain in scrotum 17489688 N50.82 pt voided prior to appointmen tPain has improvedDi scussed supportive underwearR TC in 6 months for f/u Long-term current use of anticoagulant 845663049 Z79.01 [id number] Gerber Perkins PA-C [facility] [address] [facility] [address] [place] [address] 01/11/2025 09:29:02 01/11/2025 11:24:51 Steatotic liver disease 854577027 K76.0 -obtain lab workup per below for further evaluation /risk stratifica tion. Family his tory of cancer of colon 376033316 Z80.0 Patient's father had colon cancer. His last colonoscop y was 9-10 years ago. Will schedule screening colonoscop y today. 5 year interval is recommende d due to family history. Right uppe r quadrant pain 794792803 R10.11 Intermitte nt. He reports negative GBUS and HIDA scan. Improved after he started Prozac per primary care. He will monitor. Health Concerns Section Related Observation LastModified by Organization Detai ls LastModified Time None Recorded Concern Status LastModified by Organization Details LastModified Time None Recorded Advance Directives Directive None Recorded Payers Insurance Date Sequence Insurance Name Policy Number Policy Rubio Covered Member ID Rubio Member ID Guarantor Name 01/11/2025 1 [employer] (MEDICARE REPLACEMENT/ ADVANTAGE - HMO) Antwon Coppage [id number] Antwon Coppage 01/11/2025 1 [employer] - DUAL ELIGIBLE (MEDICARE REPLACEMENT/ ADVANTAGE - [place]) [id number] Antwon Coppage [id number] Antwon Coppage 01/11/2025 1 [employer] [place] (MEDICARE REPLACEMENT/ ADVANTAGE - HMO) [id number] Antwon Coppage [id number] Antwon Coppage 01/11/2025 1 [facility] (MEDICAID HMO) Antwon Coppage [id number] Antwon Coppage Notes Date Note Type Note Provider Name and Address Organization Details Recorded Time 11/14/2022 text/html patient returns to clinic today follow-up of scrotal pain. Patient has occasional burning sensation along the right scrotum and paratesticular region that happens approximately 2 times per week. This is most notable especially if he is out walking a lot, lifting or squatting in tight places. The patient also has erectile dysfunction that is predominantly rapid deep tumescence. The patient is having no lower urinary tract symptoms currently and postvoid residual today is 0. Previous History: [ Patient has a history of right scrotal pain which he states will occasionally occur when he takes a missed step and on 1 occasion after he sneezed violently. He states 5 minutes after that he developed some pain. He is no longer having scrotal or testicular pain. The patient had a abnormal scrotal ultrasound in the past which showed a heterogeneous abnormality. The patient had repeat scrotal ultrasound on 11/15/2021 which was normal. Patient is having no significant lower urinary tract symptoms, weight loss, bone pain or hematuria. ] Edgard Bailey MD [address], [place], [address], [facility] 11/14/2022 16:41:57 10/01/2023 text/html 48 yowm presents to clinic for evaluation of right scrotal pain. Reports that he started experiencing right scrotal pain 2 weeks ago. States it woke him up from sleep. States if he lifts anything heavy it will bring about the pain. States he does have some swelling. Denies any redness, fever, chills, nausea, or vomiting. Has not had any recent imaging. Last scrotal ultrasound 2 years ago was normal. H/o vasectomy 19 years ago. States in his 20s injured both testicles r/t lifting heavy objects. PSA was 1.0 on 12/31/2022. States urinary stream is good. Denies any dysuria or gross hematuria. Mary Jo Radford NP, S [address], [place], [address], [facility] 10/01/2023 10:27:41 10/09/2023 text/html 48 yowm RTC for f/u of Scrotal US results. Recent scrotal ultrasound on 10/07/2023 revealed there is heterogeneous echotexture of the right testicle of uncertain significance, Does appear similar to prior exam on 11/15/2021. There is increased vascularity in the right epididymis, right epididymitis is not excluded. There is a 4 mm epididymal cyst in the upper left epididymis. Patient denies any redness, fever, chills, nausea or vomiting Previous History: [48 yowm presents to clinic for evaluation of right scrotal pain. Reports that he started experiencing right scrotal pain 2 weeks ago. States it woke him up from sleep. States if he lifts anything heavy it will bring about the pain. States he does have some swelling. Denies any redness, fever, chills, nausea, or vomiting. Has not had any recent imaging. Last scrotal ultrasound 2 years ago was normal. H/o vasectomy 19 years ago. States in his 20s injured both testicles r/t lifting heavy objects. PSA was 1.0 on 12/31/2022. States urinary stream is good. Denies any dysuria or gross hematuria. ] Mary Jo Radford, GRACIA, S [address] [facility], [place], [address], [facility] - [place] - [place] & [place] 10/09/2023 10:16:21 11/13/2023 text/html 48 yowm RTC for f/u of right scrotal pain. At last visit on 10/09/2023, pt was prescribed Bactrim DSfor 2 weeks. Reports the pain has improved, only occurs if he lifts heavy objects. Recent scrotal ultrasound on 10/07/2023 revealed there is heterogeneous echotexture of the right testicle of uncertain significance, Does appear similar to prior exam on 11/15/2021. There is increased vascularity in the right epididymis, right epididymitis is not excluded. There is a 4 mm epididymal cyst in the upper left epididymis.H/o vasectomy 19 years ago. States in his 20s injured both testicles r/t lifting heavy objects. PSA was 1.0 on 12/31/2022. States urinary stream is good. Denies any dysuria or gross hematuria. Mary Jo Radford, [employer], [address], [place], [address], [facility] - [place] - [place] & [place] 11/13/2023 13:59:49 01/11/2025 text/html Mr. Ponce is a 49-year-old male who was referred by Lesley Sandy APRN for evaluation of hepatic steatosis. He also complains of intermittent RUQ pain that has recently improved after starting Prozac. He states the pain is worse after consuming fatty/greasy foods. He states he had a GBUS and HIDA scan recently that were normal. He did not experience symptom reproduction during HIDA scan. He reports a family history of colon cancer in his father. His last colonoscopy was 10 years ago. He denies alcohol use. He reports previously weighing around 300 lbs for a short period of time. His current weight has been stable for the past few years. Review of his [place] records showed normal hepatic function labs last year. Cross sectional imaging last year showed diffuse hepatic steatosis. Gerber Perkins PA-C [address], [place], [address], [place] - [facility] - [place] & [place] 01/11/2025 18:16:08
--- OUTSIDE RECORDS SUMMARY | 2025-01-19 07:35 | XMS_ITS | Encounter Summary ---
Author Organization [facility] Address [address] [place] [address] Care Team Providers Care Service Planner Name Role Phone Lesley Gomez APRN Primary Care Provider [phone] Nolan Moeller MD Unavailable Reason for Referral * Genetic Testing (Routine) - Closed Specialty Diagnoses / Procedures Referred By Contac t Referred To Contact Lab Diagnoses Recurrent infections Procedures IgM Ayden Kennedy DO [address] [place] [address] Phone: tel: fax: Referral ID Status Reason Start Date Expiration Date Visits Re quested Visits Authorized [id number] Closed 02/17/2024 08/18/2025 1 1 * Genetic Testing (Routine) - Closed Specialty Diagnoses / Procedures Referred By Contac t Referred To Contact Lab Diagnoses Recurrent infections Procedures IgG Ayden Kennedy DO [address] [facility] [address] [place] [address] Phone: tel: fax: Referral ID Status Reason Start Date Expiration Date Visits Re quested Visits Authorized [id number] Closed 02/17/2024 08/18/2025 1 1 * Genetic Testing (Routine) - Closed Specialty Diagnoses / Procedures Referred By Contac t Referred To Contact Lab Diagnoses Recurrent infections Procedures IgA Ayden Kennedy DO [address] [facility] [address] [place] [address] Phone: tel: fax: Referral ID Status Reason Start Date Expiration Date Visits Re quested Visits Authorized [id number] Closed 02/17/2024 08/18/2025 1 1 Encounter Details Date Type Department Care Team (Late st Contact Info) Description 02/17/2024 Community Orders Community Practice [address] [place] [address] Ayden Kennedy DO [address] [facility] [address] [place] [phone] Recurrent infections (Primary Dx) Social History Tobacco Use Types [...] afraid of your partner or ex-partner? No 10/03/2023 Within the last year, have y ou been humiliated or emotionally abused in other ways by your partner or ex-partner? No Within the last year, have y ou been kicked, hit, slapped, or otherwise physically hurt by your partner or ex-partner? No 10/03/2023 Within the last year, have y ou been raped or forced to have any kind of sexual activity by your partner or ex-partner? No 10/03/2023 Overall Financial Resource Strain (CARDIA) Answe r Date Recorded How hard is it for you to pa y for the very basics like food, housing, medical care, and heating? Somewhat hard 11/22/2022 PHQ-2 Answer Date Recorded Patient Health Questionnaire-2 Score 0 02/04/2024 Hunger Vital Sign Answer Date Recorded Within the past 12 months, y ou worried that your food would run out before you got the money to buy more. Never true 10/03/19 24 Within the past 12 months, t he food you bought just didn't last and you didn't have money to get more. Never true 10/03/2023 PRAPARE - Transportation Answer Date Re corded In the past 12 months, has l ack of transportation kept you from medical appointments or from getting medications? No 01/2024 In the past 12 months, has l ack of transportation kept you from meetings, work, or from getting things needed for daily living? No 10/03/2023 Housing Stability Vital Sign Answer Rik e Recorded In the last 12 months, was t here a time when you were not able to pay the mortgage or rent on time? No 10/03/2023 In the last 12 months, how many places have you lived? 1 10/03/2023 In the last 12 months, was t here a time when you did not have a steady place to sleep or slept in a nursing home (including now)? No 10/03/2023 Utilities Answer Date Recorded In the past 12 months has th e [facility], gas, oil, or water company threatened to shut off services in your home? No 10/03/2023 PHQ-2A Answer Date Recorded Patient Health Questionnaire-2 Score 0 05/08/2023 Sex and Gender Information Value Date Recorded Sex Assigned at Not on file Legal Sex Male 6:38 PM EDT Gender Identity Not on file Sexual Orientation Not on file documented as of this encounter Plan of Treatment Not on file documented as of this encounter Results * Pneumococcal Antibodies, IgG (02/18/2024 7:43 AM EDT) Pneumo serotype 1 IgG (P13,PNX) 3.34 ug/mL 02/21/2024 1:29 PM EDT [facility] ([place]) Pneumo serotype 3 IgG (P13,PNX) 0.88 ug/mL 02/21/2024 1:29 PM EDT [facility] ([place]) Pneumo serotype 4 IgG (P7,P13,PNX) 0.44 ug/mL 02/21/2024 1:29 PM EDT [facility] ([facility]) Pneumo serotype 5 IgG (P13,PNX) 2.02 ug/mL 02/21/2024 1:29 PM EDT [facility] ([place]) Pneumo serotype 6B IgG (P7,P13,PNX) 1.20 ug/mL 02/21/2024 1:29 PM EDT [facility] ([place]) Pneumo serotype 7F IgG (P13,PNX) 0.32 ug/mL 02/21/2024 1:29 PM EDT [facility] ([place]) Pneumo serotype 8 IgG (PNX) 0.25 ug/mL 02/21/2024 1:29 PM EDT [facility] ([place]) Pneumo serotype 9N IgG (PNX) 0.55 ug/mL 02/21/2024 1:29 PM EDT [facility] ([place]) Pneumo serotype 9V IgG (P7,P13,PNX) 0.27 ug/mL 02/21/2024 1:29 PM EDT [facility] ([place]) Pneumo serotype 12F IgG (PNX) 0.51 ug/mL 02/21/2024 1:29 PM EDT [facility] ([place]) Pneumo serotype 14 IgG (P7,P13,PNX) 0.33 ug/mL 02/21/2024 1:29 PM EDT [facility] ([place]) Pneumo serotype 18C IgG (P7,P13,PNX) 0.69 ug/mL 02/21/2024 1:29 PM EDT [facility] ([place]) Pneumo serotype 19F IgG (P7,P13,PNX) 7.69 ug/mL 02/21/2024 1:29 PM EDT [facility] ([place]) Pneumo serotype 23F IgG (P7,P13,PNX) 0.19 ug/mL 02/21/2024 1:29 PM EDT [facility] ([place]) Pneumo Serotype Interpretation See Note 02/21/2024 1:29 PM EDT [facility] ([place]) Blood Venous blood specimen / Unknown Venipuncture / Unknown 02/18/2024 7:43 AM EDT 02/18/2024 7:44 AM EDT Narrative [facility] ([place]) - 02/21/2024 1:29 PM EDT INTERPRETIVE INFORMATION: Streptococcus pneumoniae Antibodies, IgG A pre- and postvaccination comparison is required to adequately assess the humoral immune response to the pure polysaccharide Pneumovax 23 (PNX) and/or the protein conjugated Prevnar 7 (P7), Prevnar 13 (P13), Prevnar 20 (P20), and Vaxneuvance (V15) Streptococcus pneumoniae vaccines. Prevaccination samples should be collected prior to vaccine administration. Postvaccination samples should be obtained at least 4 weeks after immunization. Testing of postvaccination samples alone will provide only general immune status of the individual to various pneumococcal serotypes. In the case of pure polysaccharide vaccine, indication of immune system competence is further delineated as an adequate response to at least 50 percent of the serotypes in the vaccine challenge for those 2-5 years of age and to at least 70 percent of the serotypes in the vaccine challenge for those 6-65 years of age. Individual immune response may vary based on age, past exposure, immunocompetence, and pneumococcal serotype. Responder Status Antibody Ratio Nonresponder ........... Less than twofold increase and postvaccination concentration less than 1.3 ug/mL Good responder ......... At least a twofold increase and/or a postvaccination concentration greater than or equal to 1.3 ug/mL A response to 50-70 percent or more of the serotypes in the vaccine challenge is considered a normal humoral response.(Lena, 2014) Antibody concentration greater than 1.0-1.3 ug/mL is generally considered long-term protection.(Lena, 2015) References: 1. Lena JUSTICE, Heidy JW, Dumont X, et al. Multilaboratory assessment of threshold versus fold-change algorithms for minimizing analytical variability in multiplexed pneumococcal IgG measurements. Clin Vaccine Immunol. 2014;21(7):982-988. 2. Lena JUSTICE, Sonido HERNÁNDEZ. Use and clinical interpretation of pneumococcal antibody measurements in the evaluation of humoral immune function. Clin Vaccine Immunol. 2015;22(2):148-152. This test was developed and its performance characteristics determined by [facility]. It has not been cleared or approved by the U.S. Food and Drug Administration. This test was performed in a CLIA-certified laboratory and is intended for clinical purposes. Performed By: [facility] [address] [place] [address] Line Haul Driver: Andrea Bell MD, PhD CLIA Number: [id number] [facility] LAB BLOOD ORDERABLES Final R esult [facility] [place]) [address] [place] [id number] * Tetanus antibody, IgG (02/18/2024 7:43 AM EDT) Tetanus Antibody, IgG 2.3 IU/mL 02/20/2024 4:15 PM EDT [facility] ([place]) Serum Venous blood specimen / Unknown 02/18/2024 7:43 AM EDT 02/18/2024 7:44 AM EDT Narrative [facility]) - 02/20/2024 4:15 PM EDT INTERPRETIVE INFORMATION: Tetanus Ab, IgG Antibody concentration of greater than 0.1 IU/mL is usually considered protective. Responder status is determined according to the ratio of a one-month post-vaccination sample to pre-vaccination concentration of Tetanus IgG Abs as follows: 1. If the one month post-vaccination concentration is less than 1.0 IU/mL, the patient is considered a non-responder. 2. If the post-vaccination concentration is greater than or equal to 1.0 IU/mL, a patient with a ratio of less than 1.5 is a non-responder, a ratio of 1.5 to less than 3.0, a weak responder, and a ratio of 3.0 or greater, a good responder. 3. If the pre-vaccination concentration is greater than 1.0 IU/mL, it may be difficult to assess the response based on a ratio alone. A post-vaccination concentration above 2.5 IU/mL in this case is usually adequate. This test was developed and its performance characteristics determined by [facility]. It has not been cleared or approved by the US Food and Drug Administration. This test was performed in a CLIA certified laboratory and is intended for clinical purposes. Performed By: [facility] [address] [place] [id number] Line Haul Driver: Andrea Bell MD, PhD CLIA Number: [id number] [facility] LAB BLOOD ORDERABLES Final R esult [facility] ([place]) [address] [place] [address] * IgM (02/18/2024 7:43 AM EDT) IGM 48 35 - 225 mg/dL 02/18/2024 1:21 PM EDT [facility] Blood Venous blood specimen / Unknown Venipuncture / Unknown 02/18/2024 7:43 AM EDT 02/18/2024 7:44 AM EDT [facility] DO LAB BLOOD ORDERABLES Final R esult Performing Organization Address City/[facility]/ZIP Co de Phone Number [facility] [address] [place] [address] * IgG (02/18/2024 7:43 AM EDT) IGG 990 720 - 1,589 mg/dL 02/18/2024 1:21 PM EDT [facility] Blood Venous blood specimen / Unknown Venipuncture / Unknown 02/18/2024 7:43 AM EDT 02/18/2024 7:44 AM EDT [facility] LAB BLOOD ORDERABLES Final R esult Performing Organization Address City/[facility]/ZIP Co de Phone Number [facility] [address] [place] [address] * IgA (02/18/2024 7:43 AM EDT) IGA 381 75 - 400 mg/dL 02/18/2024 1:21 PM EDT [facility] Blood Venous blood specimen / Unknown Venipuncture / Unknown 02/18/2024 7:43 AM EDT 02/18/2024 7:44 AM EDT [facility] DO LAB BLOOD ORDERABLES Final R esult [facility] [address] [place] [address] * CBC and differential (02/18/2024 7:43 AM EDT) WBC Count 6.89 3.70 - 10.30 10*3/uL LAB HEMATOLOGY METHOD 02/18/2024 1:12 PM EDT [facility] RBC Count 5.34 4.60 - 6.10 10*6/uL LAB HEMATOLOGY METHOD 02/18/2024 1:12 PM EDT [facility] HGB 15.8 13.7 - 17.5 g/dL LAB HEMATOLOGY METHOD 02/18/2024 1:12 PM EDT [facility] HCT 48.7 40.0 - 51.0 % LAB HEMATOLOGY METHOD 02/18/2024 1:12 PM EDT [facility] Platelet Count 296 155 - 369 10*3/uL LAB HEMATOLOGY METHOD 02/18/2024 1:12 PM EDT [facility] MCV 91 79 - 98 fL LAB HEMATOLOGY METHOD 02/18/2024 1:12 PM EDT [facility] MCH 29.6 26.0 - 32.0 pg LAB HEMATOLOGY METHOD 02/18/2024 1:12 PM EDT [facility] MCHC 32.4 30.7 - 35.5 g/dL LAB HEMATOLOGY METHOD 02/18/2024 1:12 PM EDT [facility] RDW 12.8 11.5 - 14.5 % LAB HEMATOLOGY METHOD 02/18/2024 1:12 PM EDT [facility] MPV 10.5 8.8 - 12.5 fL LAB HEMATOLOGY METHOD 02/18/2024 1:12 PM EDT [facility] nRBC 0.0 <=0.0 per 100 WBCs LAB HEMATOLOGY METHOD 02/18/2024 1:12 PM EDT [facility] Differential Type Automated LAB HEMATOLOGY METHOD 02/18/2024 1:12 PM EDT [facility] Neutrophils % 52.0 % LAB HEMATOLOGY METHOD 02/18/2024 1:12 PM EDT [facility] Lymphocytes % 33.0 % LAB HEMATOLOGY METHOD 02/18/2024 1:12 PM EDT [facility] Monocytes % 11.0 % LAB HEMATOLOGY METHOD 02/18/2024 1:12 PM EDT [facility] Eosinophils % 3.0 % LAB HEMATOLOGY METHOD 02/18/2024 1:12 PM EDT [facility] Basophils % 1.0 % LAB HEMATOLOGY METHOD 02/18/2024 1:12 PM EDT [facility] Immature Granulocytes % 0.0 % LAB HEMATOLOGY METHOD 02/18/2024 1:12 PM EDT [facility] Neutrophils Absolute 3.55 1.60 - 6.10 10*3/uL LAB HEMATOLOGY METHOD 02/18/2024 1:12 PM EDT [facility] Lymphocytes Absolute 2.27 1.20 - 3.90 10*3/uL LAB HEMATOLOGY METHOD 02/18/2024 1:12 PM EDT [facility] Monocytes Absolute 0.75 0.30 - 0.90 10*3/uL LAB HEMATOLOGY METHOD 02/18/2024 1:12 PM EDT [facility] Eosinophils Absolute 0.22 0.00 - 0.50 10*3/uL LAB HEMATOLOGY METHOD 02/18/2024 1:12 PM EDT [facility] Basophils Absolute 0.08 0.00 - 0.10 10*3/uL LAB HEMATOLOGY METHOD 02/18/2024 1:12 PM EDT [facility] Immature Granulocytes Absolute 0.02 0.00 - 0.06 10*3/uL LAB HEMATOLOGY METHOD 02/18/2024 1:12 PM EDT [facility] Blood Venous blood specimen / Unknown Venipuncture / Unknown 02/18/2024 7:43 AM EDT 02/18/2024 7:44 AM EDT Narrative [facility] - 02/18/2024 1:12 PM EDT Therapeutic decision making should be based on absolute values, rather than percentages. us Kell Kailey Kennedy DO LAB BLOOD ORDERABLES Final R esult Performing Organization Address City/State/[facility] Co de Phone Number [facility] [address] [place] [phone] documented in this encounter Visit Diagnoses Diagnosis Recurrent infections- Primary Unspecified infectious and parasitic diseases documented in this encounter Additional Health Concerns Assessment Noted Time PHQ-9 Depression Total Score: 7 02/03/20 21 11:09 AM EDT A fall risk assessment has been complete d for the patient 01/13/2024 9:05 AM EDT A Body Mass Index follow-up plan has been documented for the patient 02/04/2024 12:14 PM EDT documented as of this encounter Care Teams Service Planner Relationship Specialty Start Date End Date Lesley Gomez APRN [facility] [place] [address] PCP - General 12/09/20 Nolan Moeller MD [address] [place] [address] Consulting Physician Neurology 01/13/24 documented as of this encounter
--- OUTSIDE RECORDS SUMMARY | 2025-01-19 07:35 | XMS_ITS | Encounter Summary ---
Author Organization [facility] Address [address] [place] [address] Care Team Providers Care Microwave Technician Name Role Phone Lesley Gomez APRN Primary Care Provider [phone] Nolan Moeller MD Unavailable Reason for Visit * Reason Onset Date Comments HCN - Patient Message 12/11/2024 Encounter Details Date Type Department Care Team (Late st Contact Info) Description 12/11/2024 Telephone [facility] [address] [place] [address] Lesley Gomez APRN [address] [place] [address] HCN - Patient Message Social [...] place to sleep or slept in a snf (including now)? No 02/24/2024 PHQ-9 Answer Date [...] any time in the past 12 m [facility], were you homeless or living in a snf (including now)? No 12/14/2024 Utilities Answer Date [...] on file documented as of this encounter Functional Status * Over the past 2 weeks, how often have you been bothered by any of the following problems? Question Answer Date of Assessment Author Little interest or pleasure in doing things More than half the days 12/14/2024 9:26 AM Kinga Grant Feeling down, depressed, or hopeless More than half the days 12/14/2024 9:26 AM Kinga Grant Patient Health Questionnaire-2 Score 4 12/14/2024 9:26 AM Kinga Grant * Question Answer Date of Assessment Author Trouble falling or staying asleep, or sleeping too much Not at all 12/14/2024 9:26 AM Kinga Grant Feeling tired or having little energy Nearly every day 12/14/2024 9:26 AM Kinga Grant Poor appetite or overeating Not at all 12/14/2024 9:26 AM Kinga Grant Feeling bad about yourself - or that you are a failure or have let yourself or your family down Several days 12/14/2024 9:26 AM Kinga Grant Trouble concentrating on things, such as reading the newspaper or watching television More than half the days 12/14/2024 9:26 AM Kinga Grant Moving or speaking so slowly that other people could have noticed? Or the opposite - being so fidgety or restless that you have been moving around a lot more than usual. Not at all 12/14/2024 9:26 AM Kinga Grant Thoughts that you would be better off or hurting yourself in some way Not at all 12/14/2024 9:26 AM Kinga Grant Patient Health Questionnaire-9 Score 10 12/14/2024 9:26 AM Kinga Grant * Calculated C-SSRS Risk Score (Lifetime/Recent) Answer Date of Assessment Author No Risk Indicated 12/14/2024 9:28 AM Kinga Ramsay * If you checked off any problems [...] * Telephone Encounter - Kinga Griffin - 12/11/2024 1:19 PM EDT Appointment scheduled for Saturday with Lesley. * Telephone Encounter - Maribell Perla - 12/11/2024 11:19 AM EDT Clinical Concern/Question Reason for Call: Pt requesting antibiotic to be called to [facility] pharmacy for ear ache. Pt liked antibiotic given last time. Please call pt to advise. Best contact number: [phone] (home) Optimal time of day to reach caller: ANYTIME Additional comments/information from caller: None Note: Please do not reply to this message. Follow-up communication and further actions as a result of this message need to be communicated with the patient directly, if the patient is not active onMyChart. If the patient is active on MyChart, they will receive notification of the communication/outcome via [employer] documented in this encounter Plan of Treatment [...] documented as of this encounter Care Teams Microwave Technician Relationship Specialty Start Date End Date Lesley Gomez APRN [address] [place] [phone] PCP - General 12/09/20 Nolan Moeller MD [address] [facility] [address] [place] [phone] Consulting Physician Neurology 01/13/24 documented as of this encounter
--- OUTSIDE RECORDS SUMMARY | 2025-01-19 07:35 | XMS_ITS | Clinical Summary ---
Author Organization [facility] Address [address] [place] [address] Care Team Providers Care Renewable Energy Division Manager Name Role Phone Lesley Gomez APRN Primary Care Provider Allergies Active Allergy Reactions Criticality Noted Date Comments Amoxicillin 03/09/2024 Penicillin 03/09/2024 Medications candesartan (ATACAND) 16 MG tablet Take 1 tablet (16 mg total) by mouth daily. 4 Active cyclobenzaprine (FLEXERIL) 10 MG tablet Take [...] (12.5 mg total) by mouth daily. Active Encounters Date Type Department Care Team Description 01/18/2025 6:30 PM EDT Lab [facility] [address] [place] [phone] Edgard Bailey MD Abnormal finding 01/18/2025 6:15 PM EDT Lab Patient [facility] [address] [facility] [place] [address] Edgard Bailey MD Abnormal finding on diagnostic imaging of right testicle (Primary Dx) 01/18/2025 11:45 AM EDT Office Visit [facility] - [facility] [address], [address] [place] [address] Edgard Bailey MD Hydrocele, unspecified hydrocele type (Primary Dx); Abnormal finding on diagnostic imaging of right testicle; Epididymal cyst; Scrotum pain; Prostate cancer screening 01/18/2025 Travel 01/18/2025 Outside Orders [facility] Admitting [address] [place] [address] Edgard Bailey MD Abnormal finding (Primary Dx) from Last 3 Months Family History Medical History Relation Name Comments Cancer Father Relation Name Status Comments Father Mother Alive Social History Tobacco Use Types Packs/Day Years [...] Date Rubens rded Speak language other than Albanian at home Not on file 01/22/2024 Want [...] 01/18/2025 11:36 AM EDT Plan of Treatment Health Maintenance Due Date Last Done Comments CT Colonography 1977 Colonoscopy 1977 Colorectal Cancer Screening 1977 FOBT/FIT 1977 Fit-DNA (Cologuard) 1977 Sigmoidoscopy 1977 Depression Screening (12+) 1989 Tobacco Cessation Counseling and Screening (12+) 05/15 HIV Screening 1992 Hepatitis C Screening 1995 DTAP/TDAP/TD VACCINES (1 - Tdap) 1996 Pneumococcal Vaccine: 0-49 Years (1 of 2 - PCV) 1995 Lipid Panel 2012 Medicare Initial AWV [id number] 02/28/2024 COVID-19 VACCINE ( - season) 2024 Influenza Vaccine (Season Ended) 2025 Insurance * Guarantor: Antwon Ponce Account Type Relation to Patient Date of Phone Billing Address Personal/Family Self 1975 [address] [facility] [address] [place] [address] MEDICARE PART A B [employer] MEDICARE HMO Care Teams Renewable Energy Division Manager Relationship Specialty Start Date End Date Lesley Gomez, [employer] [address] [place] [address] [place] [address] PCP - General Nurse Practitioner 03/09/24
--- OUTSIDE RECORDS SUMMARY | 2025-01-19 07:35 | XMS_ITS | Continuity of Care Document ---
Author Organization [facility], [facility] Address [address] [facility] [address] [place] [address] Care Team Providers Care Diesel Service Technician Name Role Phone GALILEO SANDY Primary Care Provider Assessment No assessment recorded. Plan of Treatment Reminders Order Date Submit Date Provider Last Modified By Organization Details Last Modified Time Details Appointments None recorded. Lab CMP, serum or plasma 2024 025 [facility] (Lab), [address], [place], [address], 5 13:38:21 CBC 2024 025 [facility] (Lab), [address], [place], [address], 5 13:38:21 nonalcohol ic steatohepa titis + fibrosis panel, serum or plasma 2024 025 [facility] (Lab), [address], [place], [address], 5 13:38:21 PT/INR 2024 025 [facility] (Lab), [address], [place], [address], 5 13:38:22 ammonia, blood 2024 025 [facility] (Lab), [address], [place], [address], 5 13:38:22 HbA1c (hemoglobi n A1c), blood 2024 025 [facility] (Lab), [address], [place], [address], 5 13:38:22 lipid panel, serum 2024 025 [facility] (Lab), [address], [place], [address], 5 13:38:22 Referral None recorded. Procedures None recorded. Surgeries None recorded. Imaging None recorded. Medication Orders None recorded. Patient TargetsNo targets recorded. Patient InstructionsNo instructions recorded. Reason for Referral None Reported. Problems Name Problem SNOMED Code Status Onset Date Resolution Date Notes Provider Name and Address Organization Details Recorded Time Steatotic liver disease 644084262 Active 2024 Gerber Perkins PA-C [address], [place], [address] , [place] - [facility] - [place] & [place] 5 10:11:34 Right upper quadrant pain 305238468 Active 2024 Gerber Perkins PA-C [address], [place], [address] , [place] [facility] [place] & [place] 5 10:22:19 Pain in scrotum 57982005 Active 2022 Lizeth Crase null, [place] [facility] [place] & [place] 3 09:25:33 Imaging finding 296972811 Active 2022 Lizeth Crase null, [place] [facility] [place] & [place] 3 09:26:02 Long-term current use of anticoagulant 979610487 Active 2022 Lizeth Crase null, [place] [facility] [place] 3 09:26:57 Problem Notes None recorded. Medical Equipment None Reported. Allergies Allergen ID Allergen Name Allergen Category Reaction Reaction Severity Criticality Documentation Date Start Date Code Code System Note Provider Name and Address Organization Details Recorded Time 31697 Product containin g penicilli n (product) medicatio n Not available Not available Not available 11/27/2022 50309 8001 SNOMED Lizeth Benedict [facility], [facility] [place] 3 09:24:58 Medications Name Sig Start [...] No t Available Vitals Date Recorded Body weight Body mass index (BMI) Body height Body temperature Oxygen saturation Oxygen saturation in Arterial blood by Pulse oximetry Heart rate Systolic blood pressure Diastolic blood pressure Provider Name and Address Organization Details Last Updated DateTime 5 611704. 54 g 30 kg/m2 187.96 cm 97.3 [degF] 96 % 96 % 81 /min 131 mm[Hg] 54 mm[Hg] Lizeth Guardado [facility] [place] 5 09:37:40 Social History Question Answer Notes LastModified by [employer] Details LastModified Time Tobacco Smoking Status Former Smoker Lizeth Benedict [facility] 11/27/2022 09:31:18 When Did You Quit Smoking? 16+yearssinc elastcigaret te Information not available 11/27/2022 Sex: Unknown Functional Status Question Answer Note LastModified by Organ[employer]at [employer] ([employer]) Details LastModified Time Do you use any [...] SNOMED-CT Code Diagnosis ICD10 Code Diagnosis Note [id number] Gerber Perkins PA-C [facility] [address] [facility] [address] [place] [address] 01/11/2025 09:29:02 01/11/2025 11:24:51 Steatotic liver disease 810356098 K76.0 -obtain lab workup per below for further evaluation /risk stratifica tion. Family his tory of cancer of colon 343830118 Z80.0 Patient's father had colon cancer. His last colonoscop y was 9-10 years ago. Will schedule screening colonoscop y today. 5 year interval is recommende d due to family history. Right uppe r quadrant pain 149240921 R10.11 Intermitte nt. He reports negative GBUS and HIDA scan. Improved after he started Prozac per primary care. He will monitor. Health Concerns Section Related Observation LastModified by Organization Detai ls LastModified Time None Recorded Concern Status LastModified by Organization Details LastModified Time None Recorded Payers Encounter Date Sequence Insurance Name Policy Number Policy Rubio Covered Member ID Rubio Member ID Guarantor Name 01/11/2025 1 [employer] (MEDICARE REPLACEMENT/A DVANTAGE - HMO) Antwon Ponce [id number] Antwon Ponce Notes Date Note Type Note Provider Name and Address Organization Details Recorded Time 01/11/2025 text/html Mr. Ponce is a 49-year-old male who was referred by Galileo Sandy APRN for evaluation of hepatic steatosis. [...] showed diffuse hepatic steatosis. Gerber Perkins PA-C [address], [place], [address], [facility] - [facility] - [place] & [place] 01/11/2025 18:16:08
--- OUTSIDE RECORDS SUMMARY | 2025-01-19 07:35 | XMS_ITS | Encounter Summary ---
Author Organization [facility] Address [address] [place] [address] Care Team Providers Care Refrigeration Installer Name Role Phone JasonLesley Rasheeda FINN Primary Care Provider [phone] Nolan Moeller MD Unavailable Encounter Details Date Type Department Care Team (Latest Contact Info) Description 12/14/2024 Travel Social History Tobacco Use Types Packs/Day [...] place to sleep or slept in a fpc (including now)? No 02/24/2024 PHQ-9 Answer Date [...] time in the past 12 m [facility], were you homeless or living in a fpc (including now)? No 12/14/2024 Utilities Answer Date Recorded In the past 12 months has [facility] [employer], [employer], oil, or water [employer] threatened to shut off services in your [...] Not difficult at all 12/14/2024 9:26 AM Kinga Grant * Question Answer Date of Assessment Author 1. Wish to be (Past 1 Month) No 025 9:28 AM EDT Kinga Griffin 2. Non-Specific Active Suici rocío Thoughts (Past 1 Month) No 12/14/2024 9:28 AM EDT Kinga Griffin 6. Suicidal Behavior (Lifetime) No 9:28 AM EDT Kinga Griffin documented as of this encounter Plan of [...] documented as of this encounter Care Teams Refrigeration Installer Relationship Specialty Start Date End Date Lesley Gomez APRN [address] [place] [address] PCP - General 12/09/20 Nolan Moeller MD [id number] [place] [id number] Consulting Physician Neurology 01/13/24 documented as of this encounter
[2025-01-19 07:55] LABS: Basophils # 0.1 K/mm3 (0-0.2); Basophils % 0.9 % (0.1-2.0); Eosinophils # 0.2 Kmm3 (0.0-0.4); Eosinophils % 2.4 % (0.1-12.0); Hematocrit 46.8 % (42.0-52.0); Hemoglobin 16.2 g/dL (14.1-18.0); Immature Granulocytes # 0.03 10^3uL; Immature Granulocytes % 0.3 %; Lymphocytes # 2.3 K/mm3 (0.7-4.5); Lymphocytes % 24.6 % (10-50); Mean Corpuscular HGB Conc 34.6 g/dL (31.8-35.4); Mean Corpuscular Hemoglobin 30.4 pg (27.0-31.2); Mean Corpuscular Volume 87.8 fl (80-94); Mean Platelet Volume 9.9 fl (7.4-10.4); Monocytes # 0.9 K/mm3 (0.1-1.0); Monocytes % 9.9 % (1.7-9.3); Neutrophils # 5.9 K/mm3 (1.8-7.8); Neutrophils % 61.9 % (37.0-80.0); Nucleated Red Blood Cells # 0 10^3/uL; Nucleated Red Blood Cells % 0 %; Platelet Count 339 K/mm3 (142-424); Red Blood Count 5.33 M/mm3 (4.60-6.20); Red Cell Distribution Width 13.7 % (11.5-17.5); Red Cell Distribution Width-SD 44.2 fL; White Blood Count 9.5 K/mm3 (4.8-10.8)
[2025-01-19 08:01] LABS: Ammonia 23 umol/L (9-30); INR 1.08 (0.9-1.1); Prothrombin Time 11.9 seconds (10.1-12.5)
[2025-01-19 08:27] LABS: Albumin Level 4.5 g/dl (3.5-5.0); Chloride 96 mmol/L (98-107); Sodium 138 mmol/L (136-145)
[2025-01-19 08:28] LABS: Potassium 3.4 mmoL/L (3.5-5.1)
[2025-01-19 08:30] LABS: Alanine Aminotransferase 49 U/L (12-78); Albumin/Globulin Ratio 1.5 (1.1-1.8); Anion Gap 14.4 mEq/L (5-15); Aspartate Amino Transferase 44 U/L (17-59); Blood Urea Nitrogen 15 mg/dl (9-20); Carbon Dioxide 31 mmol/L (22.0-30.0); Cholesterol 244 mg/dl (140-200); Estimated Glomerular Filt Rate 65 ml/min (>60); GFR (African American) 79 ML/MIN (>60); Globulin 3.1 g/dL (1.3-3.2); Total Protein,Serum 7.6 g/dl (6.3-8.2)
[2025-01-19 08:31] LABS: Alkaline Phosphatase 114 U/L (38-126); Bilirubin,Total 0.5 mg/dl (0.2-1.3); Calcium 9.1 mg/dl (8.4-10.2); Chol/HDL Ratio 7.9 (1-3.5); Glucose 112 mg/dl (74-100); HDL Cholesterol 31 mg/dl (40-60)
[2025-01-19 08:42] LABS: Direct LDL Cholesterol 91.08 mg/dL (100-129); Triglycerides 762 mg/dl (30-150)
[2025-01-19 09:52] LABS: Hemoglobin A1C 6.5 % (4.0-6.0)
[2025-01-22 04:30] LABS: ALT (SGPT) P5P 47 IU/L (0-55); AST (SGOT) P5P 39 IU/L (0-40); Alpha 2-Macroglobulins, Qn 151 mg/dL (110-276); Apolipoprotein A-1 109 mg/dL (101-178); Bilirubin, Total 0.3 mg/dL (0.0-1.2); Cholesterol, Total 234 mg/dL (100-199); Fibrosis Score 0.25 (0.00-0.21); Fibrosis Stage F0-F1 (.); GGT 360 IU/L (0-65); Glucose 107 mg/dL (70-99); Haptoglobin 244 mg/dL (23-355); NASH Score 0.68 (0.00-0.25); Steatosis Score 0.94 (0.00-0.40); Triglycerides 732 mg/dL (0-149)
== END 2025-01-19 23:59 | disposition home or self-care (01) ==
LOC: LAB 07:33
PROVIDERS: PCP Nurse Practitioner Family; Visit Provider Physician Assistant
DX: K76.0 Fatty (change of) liver, not elsewhere classified (principal)
CPT/HCPCS: 36415; 80053; 80061; 82140; 82172; 82247; 82465; 82947; 82977; 83010; 83036; 83883; 84450; 84460; 84478; 85025; 85610

== ENCOUNTER 2025-03-09 22:46 | Emergency (ER) | payer MEDICARE, MEDICAID, SELFPAY ==
--- OUTSIDE RECORDS SUMMARY | 2025-01-18 11:45 | XMS_ITS | Encounter Summary ---
Author Organization [employer] ([place], [place], [place], [place]) Address [address] [place] [address] Care Team Providers Care Title Lawyer Name Role Phone Lesley Gomez NP Primary Care Provider [phone] Reason for Visit * Reason Comments Follow-up Follow up Encounter Details Date Type Department Care Team (Late st Contact Info) Description 01/18/2025 11:45 AM EDT Office Visit [facility] Urology - [address] [address] Edgard Bailey MD [address] [address] Hydrocele, unspecified hydrocele type (Primary Dx); Abnormal finding on diagnostic imaging of right testicle; Epididymal cyst; Scrotum pain; Prostate cancer screening Social History Tobacco Use Types Packs/Day Years Used Date Smoking Tobacco: Every Day Cigarettes Smokeless Tobacco: Never Alcohol Use Standard Drinks/Week Comments Never 0 (1 standard drink = 0.6 oz pur e alcohol) Family and Community Support Answer Rik e Recorded Help with Day to Day Activities Not on file 01/22/2024 Feeling Lonely or Isolated Not on file 01/21 Educational Attainment Answer Date Rubens rded Speak language other than Tongan at home Not on file 01/22/2024 Want help with school or training Not on file 01/22/2024 Substance Use Answer Date Recorded Used [...] documented in this encounter Plan of Treatment Upcoming Encounters Date Type Department Care Team (Late st Contact Info) Description 03/17/2025 11:00 AM EDT Appointment [facility] Ultrasound [address] [place] [address] Edgard Bailey MD [address] [place] [address] 03/25/2025 10:30 AM EDT Office Visit [facility] - [facility] [address] [facility] [place] [phone] Edgard Bailey MD [address] [place] [phone] documented as of this encounter Visit Diagnoses Diagnosis Hydrocele, unspecified hydrocele type- Primary Abnormal finding on diagnostic imaging of right testicle Epididymal cyst Other specified disorder of male genital organs Scrotum pain Prostate cancer screening Special screening for malignant neoplasm of prostate documented in this encounter Care Teams Title Lawyer Relationship Specialty Start Date End Date Lesley Gomez, GRACIA [address] [place] [address] [place] [address] PCP - General Nurse Practitioner 03/09/24 documented as of this encounter
--- OUTSIDE RECORDS SUMMARY | 2025-01-18 18:15 | XMS_ITS | Encounter Summary ---
Author Organization [employer] ([place], [place], [place], [place]) Address [address] [place] [address] Care Team Providers Care Macerator Operator Name Role Phone Lesley Gomez NP Primary Care Provider [phone] Encounter Details Date Type Department Care Team (Latest Contact Info) Description 01/18/2025 6:15 PM EDT Lab Patient Walk-In [facility] Lab [address] [place] [address] Edgard Bailey MD [address] [facility] [address] [place] [address] Abnormal finding on diagnostic imaging of right testicle (Primary Dx) Social History Tobacco Use Types Packs/Day Years [...] Date Rubens rded Speak language other than Jordanian at home Not on file 01/22/2024 Want [...] on file documented as of this encounter Miscellaneous Notes * Result Encounter Note - Mary Jo Almanza - 01/18/2025 6:15 PM EDT Patient informed of results during clinic encounter/telephone encounter. documented in this encounter Plan of Treatment Upcoming Encounters Date Type Department Care Team (Late st Contact Info) Description 03/17/2025 11:00 AM EDT Appointment [facility] Ultrasound [address] [place] [address] Edgard Bailey MD [address] [facility] [place] [address] 03/25/2025 10:30 AM EDT Office Visit [facility] Urology - [facility] [address], [facility] [place] [address] Edgard Bailey MD [address] [facility] [place] [address] documented as of this encounter Procedures Procedure Name Priority Date/Time Associated Diagnosis Comments ALPHA FETOPROTEIN TUMOR MARKER(SENDOUT) Routine 01/18/2025 12:39 PM EDT Abnormal finding on diagnostic imaging of right testicle documented in this encounter Results * Alpha Fetoprotein Tumor Marker(SENDOUT) (01/18/2025 12:39 PM EDT) Alpha Fetoprotein Tumor Marker 2 0 - 9 ng/mL 01/20/2025 3:44 PM EDT [facility] Comment: INTERPRETIVE INFORMATION: Alpha Fetoprotein Tumor Marker The Odette Rivas Access DxI AFP method is used. Results obtained with different assay methods or kits cannot be used interchangeably. AFP is a valuable aid in the management of nonseminomatous testicular cancer patients when used in conjunction with information available from the clinical evaluation and other diagnostic procedures. Increased AFP concentrations have also been observed in ataxia telangiectasia, hereditary tyrosinemia, primary hepatocellular carcinoma, teratocarcinoma, gastrointestinal tract cancers with and without liver metastases, and in benign hepatic conditions such as acute viral hepatitis, chronic active hepatitis, and cirrhosis. The result cannot be interpreted as absolute evidence of the presence or absence of malignant disease. The result is not interpretable as a tumor marker in females. Access complete set of age- and/or gender-specific reference intervals for this test in the [employer] Laboratory Test Directory ([employer]). Performed By: [facility] [address] [place] [address] Superintendent Recreation: Andrea Bell MD, PhD CLIA Number: [id number] Blood Venipuncture / Unknown 01/18/2025 12:39 PM EDT 01/18/2025 12:45 PM EDT us Edgard Bailey MD LAB BLOOD ORDERABLES Final Resul t [facility] [address] [place] [address], [facility] [phone] documented in this encounter Visit Diagnoses Diagnosis Abnormal finding on diagnostic imaging of right testicle- Primary documented in this encounter Care Teams Macerator Operator Relationship Specialty Start Date End Date Lesley Gomez, SENIOR C SOFTWARE ENGINEER [address] [facility] [place] [address] [place] [address] PCP - General Nurse Practitioner 03/09/24 documented as of this encounter
--- OUTSIDE RECORDS SUMMARY | 2025-01-18 18:30 | XMS_ITS | Encounter Summary ---
Author Organization [employer] ([place], [place], [place], [place]) Address [address] [place] [address] Care Team Providers Care Tour Sales Representative Name Role Phone Lesley Gomez NP Primary Care Provider [phone] Encounter Details Date Type Department Care Team (Late st Contact Info) Description 01/18/2025 6:30 PM EDT Lab Patient Walk-In [facility] [address] [place] [address] Edgard Bailey MD [address] [facility] [address] [place] [address] Abnormal finding Social History Tobacco [...] Date Rubens rded Speak language other than Irish at home Not on file 01/22/2024 Want [...] Note - Mary Jo Almanza - 01/18/2025 6:30 PM EDT Patient informed of results during clinic encounter/telephone encounter. documented in this encounter Plan of Treatment Upcoming Encounters Date Type Department Care Team (Late st Contact Info) Description 03/17/2025 11:00 AM EDT Appointment [facility] [address] [place] [address] Edgard Bailey MD [address] [address] 03/25/2025 10:30 AM EDT Office Visit [facility] [address] [place], [address] [address] Edgard Bailey MD [address] [place] [address] [address] documented as of this encounter Procedures Procedure Name Priority Date/Time Associated Diagnosis Comments BETA-HCG, SERUM QUANT TUMOR MARKER(SENDOUT) Routine 01/18/2025 12:39 PM EDT Abnormal finding documented in this encounter Results * Beta-hCG, Serum Quant Tumor Marker(SENDOUT) (01/18/2025 12:39 PM EDT) Beta-hCG Quant Tumor Marker <1 0 - 3 IU/L 01/21/2025 10:40 AM EDT [facility] Comment: INTERPRETIVE INFORMATION: Beta hCG, Serum Quantitation Tumor Marker Human chorionic gonadotropin (hCG) is a valuable aid in the management of patients with trophoblastic tumors, nonseminomatous testicular tumors and seminomas when used in conjunction with information available from the clinical evaluation and other diagnostic procedures. Increased serum HCG concentrations have also been observed in melanoma, carcinomas of the breast, gastrointestinal tract, lung, and ovaries, and in benign conditions, including cirrhosis, duodenal ulcer, and inflammatory bowel disease. This result cannot be interpreted as absolute evidence of the presence or absence of malignant disease. This result is not interpretable as a tumor marker in females. The combination of the specific monoclonal antibodies used in the Linda Beta HCG electrochemiluminescent immunoassay recognize the holo-hormone, nicked forms of hCG, the beta-core fragment, and the free beta-subunit. Results obtained with different test methods or kits cannot be used interchangeably. Although this assay is FDA cleared for use in the detection of , it is not labeled for use as a tumor marker. Access complete set of age- and/or gender-specific reference intervals for this test in the [facility] Test Directory ([employer]). This test was developed and its performance characteristics determined by [employer] [facility]. It has not been cleared or approved by the US Food and Drug Administration. This test was performed in a CLIA certified laboratory and is intended for clinical purposes. Performed By: [employer] [address] [place] [address] Timber Robber: Andrea Bell MD, PhD CLIA Number: [id number] Blood Venipuncture / Unknown 01/18/2025 12:39 PM EDT 01/18/2025 12:45 PM EDT us Edgard Bailey MD LAB BLOOD ORDERABLES Final Resul t [facility] [address] [place] [address], [facility] [phone] documented in this encounter Visit Diagnoses Diagnosis Abnormal finding Other nonspecific abnormal finding documented in this encounter Care Teams Tour Sales Representative Relationship Specialty Start Date End Date Lesley Gomez NP [address] [facility] [place] [address] PCP - General Nurse Practitioner 03/09/24 documented as of this encounter
--- OUTSIDE RECORDS SUMMARY | 2025-01-22 08:40 | XMS_ITS | Encounter Summary ---
Author Organization Healthcare Address [address] [place] [address] Care Team Providers Care Production Control Planner Name Role Phone Lesley Gomez APRN Primary Care Provider [phone] Nolan Moeller MD Unavailable Reason for Visit * Reason Comments Med Refill Encounter Details Date Type Department Care Team (Late st Contact Info) Description 01/22/2025 8:40 AM EDT Office Visit [facility] [address] [place] [address] Michelle Mix APRN [address] [place] [address] Essential (primary) hypertension (Primary Dx) Social History Tobacco Use Types Packs/Day Years Used Date Smoking Tobacco: Every Day Cigarettes 1 20 Passive Smoke Exposure: Current Smokeless Tobacco: Never Tobacco Cessation:Ready to Q uit: No; Counseling Given: Yes Alcohol Use Standard Drinks/Week Comments Yes 0 [...] place to sleep or slept in a mcc (including now)? No 02/24/2024 PHQ-9 Answer Date [...] any time in the past 12 m [facility], were you homeless or living in a mcc (including now)? No 12/14/2024 Utilities Answer Date [...] Sign Reading Time Taken Comments Blood Pressure 124/82 01/22/2025 8:48 AM EDT Pulse 75 01/22/2025 8:48 AM EDT Temperature - - Respiratory Rate 18 01/22/2025 8:48 AM EDT Oxygen Saturation 95% 01/22/2025 8:48 AM EDT Inhaled Oxygen Concentration - - Weight 106 kg (234 lb 9.1 oz) 01/22/2025 8:48 AM EDT Height 188 cm (6' 2 ) 01/22/2025 8:48 AM EDT Body Mass Index 30.12 01/22/2025 8:48 AM EDT documented in this encounter Miscellaneous Notes * Clinician Note - Eve Galeas - 01/22/2025 8:40 AM EDT Fall risk protocol in place, pt in chair with arms * Progress Notes - Michelle Mix APRN - 01/22/2025 8:40 AM EDT Subjective Patient ID: Antwon Ponce is a 49 y.o. male. Chief Complaint Patient presents with Med Refill Patient presents today requesting a refill on hydrochlorothiazide. He was started on it back in September after an ER visit for elevated BP. Says BP was up over 200 systolic at that time. He has cut backon salt intake and feels like BP has been well-controlled since starting the medication. BP is normal in office today. He denies CP, SOA, or edema. The following portions of the chart were reviewed this encounter and updated as appropriate: Tobacco Allergies Meds Problems Med Hx Surg Hx Fam Hx Current Medications[1] Review of Systems A 14 point ROS reviewed and is otherwise negative except as per HPI. Objective Visit Vitals BP 124/82 Pulse 75 Resp 18 Ht 1.88 m (6' 2 ) Wt 106 kg (234 lb 9.1 oz) SpO2 95% BMI 30.12 kg/m?? Smoking Status Every Day BSA 2.35 m?? Body mass index is 30.12 kg/m??. Physical Exam Vitals reviewed. Constitutional: General: He is not in acute distress. HENT: Head: Normocephalic. Mouth/Throat: Mouth: Mucous membranes are moist. Eyes: Conjunctiva/sclera: Conjunctivae normal. Cardiovascular: Rate and Rhythm: Normal rate. Pulmonary: Effort: Pulmonary effort is normal. Skin: General: Skin is warm and dry. Neurological: Mental Status: He is alert and oriented to person, place, and time. Psychiatric: Mood and Affect: Mood normal. Behavior: Behavior normal. Assessment/Plan 1. Essential (primary) hypertension (Primary) Chronic, controlled. Will continue current medication, refills sent. Patient declined screening labs today. Says he just had cholesterol checked with Dr. Buck, records requested. - hydroCHLOROthiazide (HYDRODiuril) 25 MG tablet; Take 1 tablet by mouth daily. Dispense: 90 tablet; Refill: 3 Michelle Mix APRN [1] Current Outpatient Medications: atorvastatin (Lipitor) 10 MG tablet, Take 1 tablet (10 mg) by mouth 1 (one) time each day., Disp: 90 tablet, Rfl: 2 cyclobenzaprine (Flexeril) 10 MG tablet, Take 1 tablet by mouth at night as needed for muscle spasms., Disp: 90 tablet, Rfl: 3 famotidine (Pepcid) 20 MG tablet, Take 1 tablet by mouth twice daily, Disp: 180 tablet, Rfl: 2 FLUoxetine (PROzac) 20 MG capsule, Take 1 capsule by mouth once daily, Disp: 90 capsule, Rfl: 3 hydroCHLOROthiazide (HYDRODiuril) 25 MG tablet, Take 1 tablet (25 mg) by mouth daily., Disp: , Rfl: hydrOXYzine HCl (Atarax) 25 MG tablet, Take 1 tablet (25 mg) by mouth every 6 hours as needed for anxiety., Disp: 30 tablet, Rfl: 1 Loratadine 10 MG capsule, Take 10 mg by mouth 1 (one) time each day. , Disp: , Rfl: meclizine (Antivert) 12.5 MG tablet, TAKE 1 TABLET EVERY 6 HOURS NEEDED FOR DIZZINESS., Disp: , Rfl: omeprazole (PriLOSEC) [address] capsule, Take 1 capsule (40 mg) by mouth 1 (one) time each day., Disp: 90 capsule, Rfl: 2 rivaroxaban (Xarelto) 20 MG tablet, Take 1 tablet (20 mg) by mouth 1 (one) time each day. Take withfood., Disp: 30 tablet, Rfl: 11 documented in this encounter Plan of Treatment Not on file documented as of this encounter Visit Diagnoses Diagnosis Essential (primary) hypertension- Primary Unspecified essential hypertension documented in this encounter Additional Health Concerns Assessment Noted Time PHQ-9 Depression Total Score: 10 025 9:26 AM EDT A fall risk assessment has been complete d for the patient 01/22/2025 8:50 AM EDT A Body Mass Index follow-up plan has been documented for the patient 12/14/2024 9:52 AM EDT documented as of this encounter Care Teams Production Control Planner Relationship Specialty Start Date End Date Lesley Gomez APRN [address] [place] [phone] PCP - General 12/09/20 Nolan Moeller MD [address] [place] [address] Consulting Physician Neurology 01/13/24 documented as of this encounter
--- OUTSIDE RECORDS SUMMARY | 2025-02-25 14:40 | XMS_ITS | Encounter Summary ---
Author Organization Healthcare Address [id number] Care Team Providers Care Wardrobe Technician Name Role Phone Lesley Gomez APRN Primary Care Provider [phone] Nolan Moeller MD Unavailable Reason for Visit * Reason Comments Earache Right ear - pain - s tarted yesterday Encounter Details Date Type Department Care Team (Late st Contact Info) Description 02/25/2025 2:40 PM EDT Office Visit [facility] [address] [place] [address] Nava Figueredo, AAKASH, DNP [address] [place] [address] Right chronic serous otitis media (Primary Dx) Social History Tobacco Use Types Packs/Day Years Used Date Smoking Tobacco: Every Day Cigarettes 1 20 Passive Smoke Exposure: Current Smokeless Tobacco: Never Tobacco Cessation:Ready to Q uit: No; Counseling Given: No Alcohol Use Standard Drinks/Week Comments Not Currently 0 (1 standard drink = 0.6 oz [...] place to sleep or slept in a senior living (including now)? No 02/24/2024 PHQ-9 Answer Date [...] any time in the past 12 m [facility], were you homeless or living in a senior living (including now)? No 12/14/2024 AUDIT-C Answer Date Recorded Q1: How often do you have a drink containing alcohol? Never 02/25/2025 Q2: How many drinks containi ng alcohol do you have on a typical day when you are drinking? Patient does not drink Q3: How often do you have si x or more drinks on one occasion? Never 02/25/2025 Utilities Answer Date Recorded In the past 12 months has th e [employer], gas, oil, or water company threatened to [...] Sign Reading Time Taken Comments Blood Pressure 132/86 02/25/2025 3:00 PM EDT Pulse 83 02/25/2025 3:00 PM EDT Temperature 36.9 C (98.4 F) 02/25/2025 3:00 PM EDT Respiratory Rate 18 02/25/2025 3:00 PM EDT Oxygen Saturation 96% 02/25/2025 3:00 PM EDT Inhaled Oxygen Concentration - - Weight 107 kg (236 lb 1.8 oz) 02/25/2025 3:00 PM EDT Height 188 cm (6' 2 ) 02/25/2025 3:00 PM EDT Body Mass Index 30.32 02/25/2025 3:00 PM EDT documented in this encounter Functional Status * AUDIT-C Score Answer Date of Assessment Author 0 02/25/2025 3:01 PM EDT Pedro Cox * Question Answer Date of Assessment Author Q1: How often do you have a drink containing alcohol? Never 02/25/2025 3:01 PM EDT Makenna Cox Q2: How many drinks containing alcohol do you have on a typical day when you are drinking? Patient does not drink 02/25/2025 3:01 PM EDT Makenna Cox Q3: How often do you have six or more drinks on one occasion? Never 02/25/2025 3:01 PM EDT Makenna Cox * Calculated C-SSRS Risk Score (Lifetime/Recent) Answer Date of Assessment Author No Risk Indicated 02/25/2025 3:08 PM EDT Makenna Cox * Question Answer Date of Assessment Author 1. Wish to be (Past 1 Month) No 025 3:08 PM EDT Makenna Cox 2. Non-Specific Active Suici rocío Thoughts (Past 1 Month) No 02/25/2025 3:08 PM EDT Makenna Cox 6. Suicidal Behavior (Lifetime) No 3:08 PM EDT Makenna Cox documented as of this encounter Miscellaneous Notes * Progress Notes - Nava Figueredo, EMBOSSER OPERATOR, DNP - 02/25/2025 2:40 PM EDT Subjective Antwon Ponce Earache Mr. Ponce presents for ear ache of right ear. Patient says he started having pain in his right ear this morning. Patient has not had a fever. Patient denies any drainage from ear. Patient says thatit has been running down his neck. Patient denies headache out of ordinary. Patient denies sore throat. Past Medical History[1] Family History[2] Surgical History[3] Social History Socioeconomic History Marital status: [...] Used Substance and Sexual Activity Alcohol use: Not Currently Drug use: Never Sexual activity: Not on file Other Topics [...] Social Connections: Low Risk (01/22/2024) Received from [facility] ([place], [place], [place], [place]) Family and Community Support Help with Day [...] Year: No Medications Ordered Prior to Encounter[4] Allergies[5] Health Maintenance Due Topic Date Due [facility]-Medicare Annual Wellness (AWV) Never done [facility]-HIV [...] 49 Years) (1 of 2 - PCV) Never done [id number] Vaccine (1 - season) Never done [facility]-Influenza Vaccine (1) 03/29/2025 [facility]-Colorectal Cancer Screening 04/20/2025 The following portions of the patient's chart were reviewed in this encounter and updated as appropriate: past medical history, surgical history, family history, tobacco history, allergies, and medications A 14-point review of systems was completed with pertinent positives and negatives outlined above. Objective Vitals: 02/25/25 1500 BP: 132/86 Pulse: 83 Resp: 18 Temp: 36.9 ??C (98.4 ??F) SpO2: 96% Physical Exam Constitutional: Appearance: Normal appearance. HENT: Head: Normocephalic and atraumatic. Right Ear: A middle ear effusion is present. Tympanic membrane is erythematous. Left Ear: Tympanic membrane, ear canal and external ear normal. Eyes: Pupils: Pupils are equal, round, and reactive to light. Cardiovascular: Rate and Rhythm: Normal rate and regular rhythm. Pulses: Normal pulses. Pulmonary: Effort: Pulmonary effort is normal. Breath sounds: Normal breath sounds. Neurological: General: No focal deficit present. Mental Status: He is alert and oriented to person, place, and time. Psychiatric: Mood and Affect: Mood normal. Behavior: Behavior normal. Thought Content: Thought content normal. Judgment: Judgment normal. Assessment/Plan 1. Right chronic serous otitis media (Primary) Will take antibiotic as prescribed. May take tylenol/ibuprofen every 4-6 hours as needed. May applywarm compress to ear to help with pain and discomfort. - sulfamethoxazole-trimethoprim (Bactrim DS) 800-160 MG tablet; Take 1 tablet by mouth 2 times a day for 7 days. Dispense: 14 tablet; Refill: 0 Nava Figueredo APRN, DNP [1] Past Medical History: Diagnosis Date Benign paroxysmal vertigo, unspecified ear Benign paroxysmal positional vertigo Elevated blood-pressure reading, without diagnosis of hypertension Elevated BP without diagnosis of hypertension Neuralgia and neuritis, unspecified Neuropathic pain Prediabetes Prediabetes [2] Family History Problem Relation Name Age of Onset Migraines Mother Hyperlipidemia Other Hypertension Other [3] Past Surgical History: Procedure Laterality Date OTHER SURGICAL HISTORY N/A History of endoscopy from [facility] OTHER SURGICAL HISTORY N/A History of vasectomy from [facility] [4] Current Outpatient Medications on File Prior [...] by mouth once daily 90 capsule 3 hydroCHLOROthiazide (HYDRODiuril) 25 MG tablet Take 1 tablet by mouth daily. 90 tablet 3 hydrOXYzine HCl (Atarax) 25 MG tablet Take [...] facility-administered medications on file prior to visit. [5] Allergies Allergen Reactions Amoxicillin Anaphylaxis Cannot breathe Penicillins Anaphylaxis Cannot breathe Candesartan Rash documented in this encounter Plan of Treatment Not on file documented as of this encounter Visit Diagnoses Diagnosis Right chronic serous otitis media- Primary Simple or unspecified chronic serous otitis media documented in this encounter Additional Health Concerns Assessment Noted Time PHQ-9 Depression Total Score: 10 025 9:26 AM EDT A fall risk assessment has been complete d for the patient 01/22/2025 8:50 AM EDT A Body Mass Index follow-up plan has been documented for the patient 02/25/2025 3:23 PM EDT documented as of this encounter Care Teams Wardrobe Technician Relationship Specialty Start Date End Date Lesley Gomez APRN [address] [place] [phone] PCP - General 12/09/20 Nolan Moeller MD [address] [place] [address] Consulting Physician Neurology 01/13/24 documented as of this encounter
[2025-03-09 23:12] VITALS: BP 132/85; PULSE 69; RESP 18; TEMP 36.7; O2SAT 99
--- NOTE | 2025-03-09 23:35 | HMH.EDGENADL ---
Discharge Plan Disposition Patient Disposition: Home, Self-Care Prescriptions Prescriptions: New methocarbamol 500 mg tablet 1,000 mg PO Q6H PRN (Reason: pain) Qty: 60 0RF lidocaine 5 % adhesive patch,medicated 1 patch topical DAILY PRN (Reason: pain) Qty: 30 0RF Rx Instructions: leave on most painful area for up to 12 hrs No Action omeprazole 40 mg capsule,delayed release(DR/EC) 40 mg PO DAILY Patient Comments: TAKE 1 CAPSULE BY MOUTH ONCE DAILY meclizine 12.5 mg tablet 12.5 mg PO BID loratadine 10 mg capsule 10 mg PO DAILY famotidine 20 mg tablet 20 mg PO Patient Comments: TAKE 1 TABLET BY MOUTH TWICE DAILY atorvastatin 10 mg tablet 10 mg PO Patient Comments: TAKE 1 TABLET BY MOUTH ONCE DAILY fluoxetine 20 mg capsule 20 mg PO Patient Comments: TAKE 1 CAPSULE BY MOUTH ONCE DAILY cyclobenzaprine 10 mg tablet 10 mg PO Patient Comments: TAKE 1 TABLET BY MOUTH AT NIGHT NEEDED FOR MUSCLE SPASM Xarelto 20 mg tablet See Rx Instructions .ROUTE .COMPLEX Qty: 90 0RF Dose Instruction: TAKE 1 TABLET BY MOUTH ONCE DAILY IN THE EVENING WITH MEALS Rx Instructions: TAKE 1 TABLET BY MOUTH ONCE DAILY IN THE EVENING WITH MEALS candesartan 16 mg tablet 16 mg PO DAILY Qty: 30 5RF dicyclomine 20 mg tablet 20 mg PO BID hydrochlorothiazide 25 mg tablet 25 mg PO DAILY Qty: 30 3RF Referrals Follow up/Referrals: Lesley Gomez [Primary Care Provider, Medical] - See instructions Activity Restrictions/Add. Instructions Additional Instructions/Restrictions: Please follow-up with your primary care provider. Please return to the emergency department if you develop any new or worsening symptoms or become concerned for your health. I sent a new prescription for muscle relaxers. Clinical Impressions Clinical Impression: Strain of abdominal muscle Qualifiers: Encounter type: initial encounter Qualified Code(s): S39.011A - Strain of muscle, fascia and tendon of abdomen, initial encounter Print Language Print Language: Vincentian Discharge ED Provider: Jonathan White Adult [facility] General Chief complaint: PAIN Stated complaint: L side pain, shooting pain when he coughs Time Seen by Provider: 03/09/25 23:35 Mode of Arrival: Ambulatory Source of Information: Patient Description of Symptoms (Recalled from ER Triage Doc. by RN): Patient ambulatory to ED with complaints of left side pain. He states that he was sitting down at home watching tv and sneezed. He heard a loud pop to his left side and feels like he pulled a muscle. He states that when he coughs really hard he feels a sharp shooting pain to that left side. History of Present Illness HPI narrative: 49-year-old male with history of hypertension, anemia, prior PE presents for left-sided abdominal pain. He reports that he was laying on the couch on his side when he sneezed and felt a pull in his left lateral abdominal wall. It is nontender to palpation, but when he twists and when he coughs it reproduces the pain. He denies any changes in bowel function, denies any history of kidney stones or urinary symptoms. No other symptoms have occurred, he has had no chest pain shortness of breath etc. Related Data Home Medications ?Medication ?Instructions ?Recorded ?Confirmed loratadine 10 mg capsule 10 mg PO DAILY allergies 07/04/20 02/17/25 meclizine 12.5 mg tablet 12.5 mg PO BID Pain 07/04/20 02/17/25 omeprazole 40 mg capsule,delayed 40 mg PO DAILY GERD 07/04/20 02/17/25 release dicyclomine 20 mg tablet 20 mg PO BID stomach 09/25/24 02/17/25 atorvastatin 10 mg tablet 10 mg PO 12/01/24 02/17/25 cyclobenzaprine 10 mg tablet 10 mg PO 12/01/24 02/17/25 famotidine 20 mg tablet 20 mg PO 12/01/24 02/17/25 fluoxetine 20 mg capsule 20 mg PO 12/01/24 02/17/25 Previous Rx's ?Medication ?Instructions ?Recorded candesartan 16 mg tablet 16 mg PO DAILY #30 tabs 01/30/24 hydrochlorothiazide 25 mg tablet 25 mg PO DAILY #30 tabs 09/26/24 rivaroxaban 20 mg tablet (Xarelto) See Rx Instructions .Route 01/25/25 .COMPLEX #90 tabs lidocaine 5 % topical patch 1 patch topical DAILY PRN pain #30 03/09/25 ea methocarbamol 500 mg tablet 1,000 mg (2 x 500 mg) PO Q6H PRN 03/09/25 pain #60 tabs Allergies Allergy/AdvReac Type Severity Reaction Status Date / Time amoxicillin (AMOXICILLIN) Allergy Unknown Unknown Verified 02/17/25 14:07 allergy reaction Penicillins (PENICILLINS) Allergy Unknown Unknown Verified 02/17/25 14:07 allergy reaction PFSH PFS Disclaimer: The information contained in this section may have been updated after the patient was seen, as this information can be updated by other users. Medical History Chronic anticoagulation History of pulmonary embolism Restrictive lung disease Dyspnea on exertion Single subsegmental pulmonary embolism without acute cor pulmonale Shortness of breath Pulmonary embolism and infarction Surgical History History of esophagogastroduodenoscopy (EGD) History of colonoscopy Family History Father Cancer Social History Smoking Status: Current every day smoker tobacco type: cigarettes packs per day: 1 alcohol intake: never substance use type: marijuana current occupational status: unemployed Travel in the last 8 weeks?: None household members: children housing: house Other Medical History Have you received the Flu Vaccine for this season: No Have you received the Pneumonia Vaccine: No ROS Obtained: Yes All systems reviewed & no additional complaints except as documented Physical Exam General General appearance: alert and in no apparent distress Head Head exam: atraumatic and normocephalic Eye Eye exam: Present normal appearance, PERRL and EOMI ENT ENT exam: Present normal oropharynx and normal external ear exam Neck Neck exam: Present normal inspection and full ROM Chest Chest inspection: Present normal inspection and symmetric chest wall rise; Absent tenderness Respiratory Respiratory exam: Present normal lung sounds bilaterally; Absent respiratory distress Cardiovascular Cardiovascular exam: Present regular rate and normal rhythm Abdominal Exam Abdominal exam: Present soft; Absent distention, tenderness or guarding Extremities Exam Extremities exam: Present normal inspection; Absent edema or joint swelling Back Exam Back exam: Present normal inspection; Absent tenderness Neurological Exam Neurological exam: Present alert and oriented X3; Absent motor sensory deficit Psychiatric Psychiatric exam: Present normal affect and normal mood Skin Skin exam: Present warm, dry and normal color Lymphatic Lymphatic Findings: no adenopathy Medical Decision Making Medical Records Medical records reviewed: Yes I reviewed the patient's medical records. Screening: Per USPSTF and CDC recommendations, given the prevalence of disease in our region, it is our hospital?s policy to screen for HIV and viral Hepatitis for all patients aged 18 and over and those with ongoing risk factors. Yobani Inquiry Pt receiving controlled substance: No Yboani was queried for this patient: No Vital Signs: 03/09/25 23:12 03/10/25 00:08 Temperature 98.0 F 98.0 F Temperature Source Oral Oral Pulse Rate 69 Pulse Rate [Left] 69 Respiratory Rate 18 18 Blood Pressure 132/85 Blood Pressure [Right Arm] 132/85 Blood Pressure Mean [Right Arm] 100 Blood Pressure Source Automatic Cuff Blood Pressure Source [Right Arm] Automatic Cuff Blood Pressure Position Sitting Blood Pressure Position [Right Arm] Sitting 02 Sat by Pulse Oximetry 99 Oxygen Delivery Method Room Air Room Air Lab Data Lab results reviewed: Yes I reviewed the patient's lab results. Orders (Tests/Meds): ED MEDICATIONS Discontinued Medications Generic Name Dose Route Start Last Admin Trade Name Freq PRN Reason Stop Dose Admin Lidocaine 1 each 03/09/25 23:43 03/09/25 23:58 Lidocaine 5% Transdermal Patch TD 03/09/25 23:44 1 each ONCE ONE Administration Methocarbamol 1,500 mg 03/09/25 23:43 03/09/25 23:57 Methocarbamol 500mg Tablet PO 03/09/25 23:44 1,500 mg ONCE ONE Administration Medical Decision Narrative: 49-year-old male with history of hypertension hyperlipidemia prior PE presents for acute pain in the left lateral abdominal wall after a sneeze. History was obtained via interactive discussion with patient. On arrival, patient is [afebrile, hemodynamically stable, satting appropriately, alert, oriented x4, GCS 15], moving all extremities spontaneously. Full physical exam performed and significant for no significant abdominal tenderness, pain is reproducible with coughing and with twisting Differential includes but is not limited to abdominal wall strain, rib fracture, kidney stone. Patient was given lidocaine patch and Robaxin for symptomatic management and correction of underlying abnormalities. Presentation is most consistent with abdominal wall strain. I considered obtaining labs, urine, CT scan to evaluate for kidney stone, rib fracture etc. But patient is clear lungs on exam, has a nontender abdomen, and has no urinary symptoms. Given this, I do not think further workup is necessary at this time. Patient was discharged in stable condition with muscle relaxers. Return precautions given. Procedures Risk/Benefits of Procedure(s) Were Explained: Yes Critical Care Critical Care Time Critical Care Time: No
--- OUTSIDE RECORDS SUMMARY | 2025-03-09 23:37 | XMS_ITS | Referral Summary ---
Author Organization [employer] ([place], [place], [place], [place]) Address [address] [place] [address] Care Team Providers Care Gaming Host Name Role Phone Lesley Gomez NP Primary Care Provider [phone] Encounters Date Type Department Care Team Description 03/05/2025 Orders Only [facility] Urology - [address] [address] Edgard Bailey MD Abnormal finding on diagnostic imaging of right testicle (Primary Dx); Hydrocele, unspecified hydrocele type; Epididymal cyst 01/18/2025 Travel 01/18/2025 6:30 PM EDT Lab Patient Walk-In [facility] Lab [address] [place] [phone] Edgard Bailey MD Abnormal finding 01/18/2025 Outside Orders [facility] Admitting [address] [place] [phone] Edgard Bailey MD Abnormal finding (Primary Dx) 01/18/2025 6:15 PM EDT Lab Patient Walk-In [facility] [address] [place] [phone] Edgard Bailey MD Abnormal finding on diagnostic imaging of right testicle (Primary Dx) 01/18/2025 11:45 AM EDT Office Visit [facility] Urology - [address] [phone] Edgard Bailey MD Hydrocele, unspecified hydrocele type (Primary Dx); Abnormal finding on diagnostic imaging of right testicle; Epididymal cyst; Scrotum pain; Prostate cancer screening from Last 3 Months Allergies Active Allergy Reactions Criticality Noted Date Comments Amoxicillin 03/09/2024 Penicillin 03/09/2024 Medications candesartan (ATACAND) 16 MG tablet Take 1 tablet (16 mg total) by mouth daily. 01/31/2024 Active cyclobenzaprine (FLEXERIL) 10 MG tablet Take 1 tablet (10 mg total) by mouth. 05/08/2023 Active famotidine (PEPCID) 20 MG tablet Take 1 tablet (20 mg total) by mouth 2 (two) times daily. 01/21/2024 Active montelukast (SINGULAIR) 10 mg tablet Take 1 tablet (10 mg total) by mouth nightly. 02/04/2024 Active omeprazole (PriLOSEC) 40 MG capsule Take 1 capsule (40 mg total) by mouth. 05/08/2023 Active Xarelto 20 mg tablet SMARTSI Tablet(s) By Mouth Every Evening 01/24/2024 Active fLUoxetine (PROzac) 20 MG capsule Take [...] Date Rubens rded Speak language other than Telugu at home Not on file 01/22/2024 Want [...] 01/18/2025 11:36 AM EDT Plan of Treatment Upcoming Encounters Date Type Department Care Team (Late st Contact Info) Description 03/17/2025 11:00 AM EDT Appointment [facility] Ultrasound [address] [place] [address] Edgard Bailey MD [address] [address] 03/25/2025 10:30 AM EDT Office Visit [facility] Urology - [facility] [address], [address] [address] Edgard Bailey MD [address] [address] Procedures Procedure Name Priority Date/Time Associated Diagnosis Comments ALPHA FETOPROTEIN TUMOR MARKER(SENDOUT) Routine 01/18/2025 12:39 PM EDT Abnormal finding on diagnostic imaging of right testicle BETA-HCG, SERUM QUANT TUMOR MARKER(SENDOUT) Routine 01/18/2025 12:39 PM EDT Abnormal finding from Last 3 Months Results * Beta-hCG, Serum Quant Tumor Marker(SENDOUT) (01/18/2025 12:39 PM EDT) Beta-hCG Quant Tumor Marker <1 0 - 3 IU/L 01/21/2025 10:40 AM EDT iClinical Comment: INTERPRETIVE INFORMATION: Beta hCG, Serum Quantitation [...] reference intervals for this test in the [facility] Test Directory ([facility]). This test was developed and its performance characteristics determined by [facility]. It has not been cleared or approved by the [place] Food and Drug Administration. This test was performed in a CLIA certified laboratory and is intended for clinical purposes. Performed By: [facility] [address] [place] [address] User Experience Manager: Andrea Bell MD, PhD CLIA Number: [id number] Blood Venipuncture / Unknown 01/18/2025 12:39 PM EDT 01/18/2025 12:45 PM EDT us Edgard Bailey MD LAB BLOOD ORDERABLES Final Resul t [facility] [address] [place] [address], [facility] [phone] * Alpha Fetoprotein Tumor Marker(SENDOUT) (01/18/2025 12:39 PM EDT) Alpha Fetoprotein Tumor Marker 2 0 - 9 ng/mL 01/20/2025 3:44 PM EDT iClinical Comment: INTERPRETIVE INFORMATION: Alpha Fetoprotein Tumor Marker [facility] [employer] [place] Access DxI AFP method is used. Results [...] reference intervals for this test in the [facility] Test Directory ([facility]). Performed By: [facility] [address] [place] [address] User Experience Manager: Andrea Bell MD, PhD CLIA Number: [id number] Blood Venipuncture / Unknown 01/18/2025 12:39 PM EDT 01/18/2025 12:45 PM EDT Edgard Bailey MD LAB BLOOD ORDERABLES Final Resul t [facility] [address] [place] [address], [facility] [phone] from Last [address] [place] [address] MEDICARE PART A B MEDICARE HMO Care Teams Gaming Host Relationship Specialty Start Date End Date Lesley Gomez, FINANCIAL AID MANAGER [address] [place] [address] [place] [address] PCP - General Nurse Practitioner 03/09/24
--- OUTSIDE RECORDS SUMMARY | 2025-03-09 23:37 | XMS_ITS | Encounter Summary ---
Author Organization Healthcare Address [address] [place] [address] Care Team Providers Care Costume Cutter Name Role Phone Lesley Gomez APRN Primary Care Provider [phone] Nolan Moeller MD Unavailable Reason for Visit * Reason Onset Date Comments Med Refill 01/19/2025 Encounter Details Date Type Department Care Team (Late st Contact Info) Description 01/19/2025 Refill [facility] [address] [place] [address] Lesley Gomez APRN [address] [place] [address] Social History Tobacco Use Types Packs/Day Years [...] place to sleep or slept in a intermediate (including now)? No 02/24/2024 PHQ-9 Answer Date [...] any time in the past 12 m [facility], were you homeless or living in a intermediate (including now)? No 12/14/2024 Utilities Answer Date [...] documented as of this encounter Care Teams Costume Cutter Relationship Specialty Start Date End Date Lesley Gomez APRN [address] [place] [address] PCP - General 12/09/20 Nolan Moeller MD [address] [facility] [address] [place] [address] Consulting Physician Neurology 01/13/24 documented as of this encounter
--- OUTSIDE RECORDS SUMMARY | 2025-03-09 23:37 | XMS_ITS | Encounter Summary ---
Author Organization [employer] ([place], [place], [place], [place]) Address [address] [place] [address] Care Team Providers Care Manufacturing Quality Technician Name Role Phone Lesley Gomez NP Primary Care Provider [phone] Encounter Details Date Type Department Care Team [...] Date Rubens rded Speak language other than Bruneian at home Not on file 01/22/2024 Want [...] as of this encounter Plan of Treatment Upcoming Encounters Date Type Department Care Team (Late st Contact Info) Description 03/17/2025 11:00 AM EDT Appointment [facility] Ultrasound [address] [place] [address] Edgard Bailey MD [address] [place] [address] 03/25/2025 10:30 AM EDT Office Visit [facility] Urology - [place] [address] [address] [place] [address] Edgard Bailey MD [address] [address] documented as of this encounter Visit Diagnoses Not on filedocumented in this encounter Care Teams Manufacturing Quality Technician Relationship Specialty Start Date End Date Lesley Gomez, PUMP SERVICER HELPER [address] [facility] [address] PCP - General Nurse Practitioner 03/09/24 documented as of this encounter
--- OUTSIDE RECORDS SUMMARY | 2025-03-09 23:37 | XMS_ITS | Encounter Summary ---
Author Organization Healthcare Address [address] [place] [address] Care Team Providers Care Geodesy Teacher Name Role Phone JasonAvinashwilber Vanessa TRAINING PROGRAM MANAGER Primary Care Provider [phone] Nolan Moeller MD Unavailable Reason for Visit * Reason Comments Med Refill Encounter Details Date Type Department Care Team (Late st Contact Info) Description 03/09/2025 Refill [facility] [address] [place] [address] Charito Hughes, TRAINING PROGRAM MANAGER [address] [place] [address] Dyslipidemia Social History Tobacco Use Types Packs/Day Years Used Date Smoking Tobacco: Every Day Cigarettes 1 20 Passive Smoke Exposure: Current Smokeless Tobacco: Never Alcohol Use Standard Drinks/Week Comments Not Currently [...] any time in the past 12 m [facility], were you homeless or living in a snf (including now)? No 12/14/2024 AUDIT-C Answer Date [...] as of this encounter Visit Diagnoses Diagnosis Dyslipidemia Other and unspecified hyperlipidemia documented in this encounter Additional Health Concerns Assessment Noted Time PHQ-9 Depression Total Score: 10 025 9:26 AM EDT A fall risk assessment has been complete d for the patient 01/22/2025 8:50 AM EDT A Body Mass Index follow-up plan has been documented for the patient 02/25/2025 3:23 PM EDT documented as of this encounter Care Teams Geodesy Teacher Relationship Specialty Start Date End Date Lesley Gomze APRN [address] [place] [phone] PCP - General 12/09/20 Nolan Moeller MD [address] [place] [address] Consulting Physician Neurology 01/13/24 documented as of this encounter
--- OUTSIDE RECORDS SUMMARY | 2025-03-09 23:37 | XMS_ITS | Encounter Summary ---
Author Organization [facility] Address [address] [place] [id number] Care Team Providers Care Carbonating Stone Cleaner Name Role Phone Lesley oGmez INFORMATION SECURITY MANAGER Primary Care Provider [phone] Nolan Moeller MD Unavailable Reason for Visit * Reason Onset Date Comments HCN - Patient Message 12/11/2024 Encounter Details Date Type Department Care Team (Late st Contact Info) Description 12/11/2024 Telephone [facility] [address] [place] [address] Lesley Gomez, INFORMATION SECURITY MANAGER [address] [place] [address] HCN - Patient Message Social [...] any time in the past 12 m [facility], were you homeless or living in a longterm (including now)? No 12/14/2024 Utilities Answer Date [...] Pt requesting antibiotic to be called to [facility] pharmacy for ear ache. Pt liked antibiotic given last time. Please call pt to advise. Best contact number: [phone] (home) Optimal time of day to reach caller: ANYTIME Additional comments/information from caller: None Note: Please do not reply to this message. Follow-up communication and further actions as a result of this message need to be communicated with the patient directly, if the patient is not active onMyChart. If the patient is active on MyChart, they will receive notification of the communication/outcome via [employer]. documented in this encounter Plan of Treatment Not on file documented as of this encounter Visit Diagnoses Not on filedocumented in this encounter Additional Health Concerns Assessment Noted Time PHQ-9 Depression Total Score: 10 09/15/ 025 8:39 AM EST A fall risk assessment has been complete d for the patient 02/24/2024 10:01 AM EDT A Body Mass Index follow-up plan has been documented for the patient 10/02/2024 9:18 AM EST documented as of this encounter Care Teams Carbonating Stone Cleaner Relationship Specialty Start Date End Date Lesley Gomez APRN [address] [place] [address] PCP - General 12/09/20 Nolan Moeller MD [address] [place] [address] Consulting Physician Neurology 01/13/24 documented as of this encounter
--- OUTSIDE RECORDS SUMMARY | 2025-03-09 23:37 | XMS_ITS | Clinical Summary ---
Author Organization [facility] ([place] Address [address] [place] [address] Care Team Providers Care Bilingual Manager Name Role Phone Lesley Gomez NP Primary Care Provider [phone] Allergies Active Allergy Reactions Criticality Noted Date [...] Department Care Team Description 03/05/[address] [facility] Urology - [address], [address] [address] Edgard Bailey MD Abnormal finding on diagnostic imaging of right testicle (Primary Dx); Hydrocele, unspecified hydrocele type; Epididymal cyst 01/18/2025 6:30 PM EDT Lab Patient Walk[facility] Lab [address] [place] [address] Edgard Bailey MD Abnormal finding 01/18/2025 6:15 PM EDT Lab Patient [facility] [address] [place] [address] Edgard Bailey MD Abnormal finding on diagnostic imaging of right testicle (Primary Dx) 01/18/2025 11:45 AM EDT Office Visit [facility] - [facility] [address] [facility] [place] [address] Edgard Bailey MD Hydrocele, unspecified hydrocele type (Primary Dx); Abnormal finding on diagnostic imaging of right testicle; Epididymal cyst; Scrotum pain; Prostate cancer screening 01/18/2025 Travel 01/18/2025 Outside Orders [facility] Admitting [address] [place] [address] Edgard Bailey MD Abnormal finding (Primary Dx) [...] Date Rubens rded Speak language other than Malay at home Not on file 01/22/2024 Want [...] Appointment [facility] Ultrasound [address] [place] [address] Edgard Bailey MD [address] [address] 03/25/2025 10:30 AM EDT Office Visit [facility] Urology - [facility] [address] [facility] [address] [address] Edgard Bailey MD [address]IA [address] [address] Health Maintenance Due Date Last Done Comments [...] Medicare Initial AWV [id number] 02/28/2024 COVID-19 VACCINE (1 - season) 2024 Influenza Vaccine (#1) 2025 Procedures Procedure Name Priority Date/Time Associated Diagnosis [...] - 3 IU/L 01/21/2025 10:40 AM EDT [facility] Comment: INTERPRETIVE INFORMATION: Beta hCG, Serum Quantitation [...] reference intervals for this test in the [facility] Test Directory ([facility]). This test was developed and its performance characteristics determined by [facility]. It has not been cleared or approved by the US Food and Drug Administration. This test was performed in a CLIA certified laboratory and is intended for clinical purposes. Performed By: [facility] [address] [place] [id number] Service Order Expediter: Andrea Bell MD, PhD CLIA Number: [id number] Blood Venipuncture / Unknown 01/18/2025 12:39 PM EDT 01/18/2025 12:45 PM EDT Edgard Bailey MD LAB BLOOD ORDERABLES Final Resul t Performing Organization Address [facility] Co de Phone Number [facility] [address] [place] [address] * Alpha Fetoprotein Tumor Marker(SENDOUT) (01/18/2025 12:39 PM EDT) [facility] Tumor Marker 2 0 - 9 ng/mL 01/20/2025 3:44 PM EDT [facility] Comment: INTERPRETIVE INFORMATION: Alpha Fetoprotein Tumor Marker [...] reference intervals for this test in the [facility] Test Directory ([facility]). Performed By: [email or web address] [address] [place] [address] Service Order Expediter: Andrea Bell MD, PhD CLIA Number: [id number] Blood Venipuncture / Unknown 01/18/2025 12:39 PM EDT 01/18/2025 12:45 PM EDT Edgard Bailey MD LAB BLOOD ORDERABLES Final Resul t Performing Organization Address [facility] de Phone Number [facility] [address] [place] [address] from Last 3 Months Insurance MEDICARE PART A B MEDICARE HMO Care Teams Bilingual Manager Relationship Specialty Start Date End Date Lesley Gomez, OR RN [address] [facility] [place] [address] PCP - General Nurse Practitioner 03/09/24
--- OUTSIDE RECORDS SUMMARY | 2025-03-09 23:37 | XMS_ITS | Encounter Summary ---
Author Organization Healthcare Address [address] [id number] Care Team Providers Care Manager International Name Role Phone GomezLesley dumont AAKASH Primary Care Provider [phone] Nolan Moeller MD Unavailable Encounter Details Date Type Department Care Team (Latest Contact Info) Description 02/25/2025 Travel Social History Tobacco Use Types Packs/Day [...] place to sleep or slept in a custodial (including now)? No 02/24/2024 PHQ-9 Answer Date [...] were you homeless or living in a custodial (including now)? No 12/14/2024 AUDIT-C Answer Date [...] the past 12 months has th e [employer], gas, oil, or water company threatened to shut off services in your home? No 12/14/2024 PHQ-2A Answer Date Recorded Patient Health Questionnaire-2 Score 0 05/08/2023 Sex and Gender Information Value Date Recorded Sex Assigned at Not on file Legal Sex Male 6:38 PM EDT Gender Identity Not on file Sexual Orientation Not on file documented as of this encounter Functional Status * AUDIT-C Score [...] Makenna Cox documented as of this encounter Plan of [...] documented as of this encounter Care Teams Manager International Relationship Specialty Start Date End Date Lesley Gomez APRN [facility] [place] [address] PCP - General 12/09/20 Nolan Moeller MD [address] [place] [address] Consulting Physician Neurology 01/13/24 documented as of this encounter
--- OUTSIDE RECORDS SUMMARY | 2025-03-09 23:37 | XMS_ITS | Clinical Summary ---
Author Organization [facility] Address [address] [facility] [address] [place] [address] Care Team Providers Care Starch Mangle Tender Name Role Phone Lesley Gomez NP Primary Care Provider [phone] Allergies Active Allergy Reactions Criticality Noted Date Comments Penicillins Unknown Low 10/22/2014 Medications cefdinir (Omnicef) 300 MG capsule TAKE 1 CAPSULE BY MOUTH TWICE DAILY FOR 10 DAYS 10/04/2021 Active clarithromycin (Biaxin) 500 MG tablet Take 500 mg by mouth 2 (two) times a day. for 7 days 05/10/2021 Active doxycycline (Adoxa) 100 MG tablet Take 100 mg by mouth every 12 (twelve) hours. 06/11/2021 Active famotidine (Pepcid) 20 MG tablet Take 20 mg by mouth. 05/10/2021 Active famotidine (Pepcid) 20 MG tablet TAKE 1 TABLET BY MOUTH IN THE EVENING NEEDED FOR 30 DAYS 06/06/2021 Active omeprazole (PriLOSEC) [address] capsule Take 40 mg by mouth 1 (one) time each day. 01/08/2022 Active omeprazole (PriLOSEC) [address] capsule Take 40 mg by mouth 1 (one) time each day. 04/08/2022 Active rivaroxaban (Xarelto) 20 MG tablet Take 20 mg by mouth 1 (one) time each day. Active Xarelto 20 MG tablet TAKE 1 TABLET BY MOUTH ONCE DAILY WITH EVENING MEAL 04/01/2022 Active Xarelto 15 MG tablet Take 15 mg by mouth 2 (two) times a day. 06/06/2021 Active rOPINIRole (Requip) 1 MG tablet Take 1 mg by mouth. 12/04/2021 Active rOPINIRole (Requip) 1 MG tablet TAKE 1 TABLET BY MOUTH ONCE DAILY AT NIGHT 12/04/2021 Active traMADol (Ultram) 50 MG tablet Take 50 mg by mouth every 6 (six) hours if needed. 06/08/2021 Active traMADol (Ultram) 50 MG tablet TAKE 1 TABLET BY MOUTH EVERY 6 HOURS NEEDED FOR SEVERE PAIN 06/08/2021 Active cyclobenzaprine (Flexeril) 10 MG tablet TAKE 1 TABLET BY MOUTH AT NIGHT NEEDED FOR MUSCLE SPASM 05/21/2022 Active azithromycin (Zithromax) 250 MG tablet TAKE 2 TABLETS BY MOUTH ON DAY 1, AND THEN TAKE 1 TABLET BY MOUTH ONCE A DAY ON DAY 2 THROUGH DAY 5 10/03/2022 Active cyclobenzaprine (Flexeril) 10 MG tablet Take 10 mg by mouth 1 (one) time each day if needed. 07/16/2022 Active fluticasone (Flonase) 50 MCG/ACT nasal spray USE 1 SPRAY IN EACH NOSTRIL ONCE DAILY. SHAKE GENTLY. BEFORE FIRST USE, PRIME PUMP. AFTER USE, CLEAN TIP AND REPLACE CAP. 08/10/2022 Active omeprazole (PriLOSEC) [address] capsule Take 1 capsule by mouth 1 (one) time each day. 10/03/2022 Active predniSONE (Deltasone) 20 MG tablet TAKE 2 TABLETS BY MOUTH ONCE DAILY FOR 5 DAYS 08/10/2022 Active venlafaxine XR (Effexor XR) 75 MG 24 hr capsule Take 1 capsule (75 mg total) by mouth 1 (one) time each day. Do not crush or chew. 30 capsule 1 10/17/2022 Active Active Problems No known active problems Social History Tobacco Use Types Packs/Day Years Used Date Smoking Tobacco: Never Smokeless Tobacco: Never Alcohol Use Standard Drinks/Week Comments Never 0 (1 standard drink = 0.6 oz pur e alcohol) Sex and Gender Information Value Date Recorded Sex Assigned at Not on file Legal Sex Male 9:13 AM EDT Gender Identity Not on file Sexual Orientation Not on file Last Filed Vital Signs Vital Sign Reading Time Taken Comments Blood Pressure - - Pulse 87 10/17/2022 1:12 PM EDT Temperature - - Respiratory Rate - - Oxygen Saturation 98% 10/17/2022 1:12 PM EDT Inhaled Oxygen Concentration - - Weight 102 kg (225 lb) 10/17/2022 1:12 PM EDT Height 177.8 cm (5' 10 ) 10/17/2022 1:12 PM EDT Body Mass Index 32.28 10/17/2022 1:12 PM EDT Plan of Treatment Health Maintenance Due Date Last Done Comments CT Colonography 1977 Colonoscopy 1977 Colorectal Cancer Screening 1977 FIT-DNA (Cologuard) 1977 FIT 1977 FOBT 1977 HIV Screening 1977 Hepatitis C Screening 1977 Lipid Panel 1977 Sigmoidoscopy 1977 MMR Vaccines (1 of 1 - Stand jr series) 1978 Hepatitis B Screening 1995 DTaP/Tdap/Td Vaccines (1 - Tdap) 1996 Hepatitis A Vaccines (1 of 2 - Risk 2-dose series) 1996 Hepatitis B Vaccines (1 of 3 - 19+ 3-dose series) 1996 COVID-19 Vaccine (1 - 2023-2 5 season) 2024 Depression Risk Screening 07/29/2024 SDOH Screening 07/29/2024 Influenza Vaccine (#1) 2025 Zoster Vaccines (1 of 2) 2027 HIB Vaccines Aged Out No longer eligi ble based on patient's age to complete this topic HPV Vaccines Aged Out No longer eligi ble based on patient's age to complete this topic IPV Vaccines Aged Out No longer eligi ble based on patient's age to complete this topic Meningococcal B Vaccine Aged Out No l onger eligible based on patient's age to complete this topic Meningococcal Vaccine Aged Out No shawn priscilla eligible based on patient's age to complete this topic Pneumococcal Vaccine Aged Out No long er eligible based on patient's age to complete this topic Rotavirus Vaccines Aged Out No longer eligible based on patient's age to complete this topic [place] Care Teams Starch Mangle Tender Relationship Specialty Start Date End Date Lesley Gomez NP [address] [place] [address] PCP - General 01/24/22
--- OUTSIDE RECORDS SUMMARY | 2025-03-09 23:37 | XMS_ITS | Encounter Summary ---
Author Organization Healthcare Address [address] [id number] Care Team Providers Care Control Systems Drafting Officer Name Role Phone GomezLesley dumont AAKASH Primary Care Provider [phone] Nolan Moeller MD Unavailable Encounter Details Date Type Department Care Team (Latest Contact Info) Description 01/22/2025 Travel Social History Tobacco Use Types Packs/Day [...] place to sleep or slept in a assisted (including now)? No 02/24/2024 PHQ-9 Answer Date [...] any time in the past 12 m [facility], were you homeless or living in a assisted (including now)? No 12/14/2024 Utilities Answer Date Recorded In the past 12 months has th e [employer], gas, oil, or water company threatened to [...] documented as of this encounter Care Teams Control Systems Drafting Officer Relationship Specialty Start Date End Date Lesley Gomez APRN [address] [place] [address] PCP - General 12/09/20 Nolan Moeller MD [address] [facility] [address] [place] [address] Consulting Physician Neurology 01/13/24 documented as of this encounter
--- OUTSIDE RECORDS SUMMARY | 2025-03-09 23:37 | XMS_ITS | Encounter Summary ---
Author Organization Healthcare Address [address] [id number] Care Team Providers Care Crust Sorter Name Role Phone Lesley Gomez PAINT SUPERVISOR Primary Care Provider [phone] Nolan Moeller MD Unavailable Reason for Visit * Reason Onset Date Comments HCN Clinical Concern/Question 01/21/2025 Encounter Details Date Type Department Care Team (Late st Contact Info) Description 01/21/2025 Telephone [facility] [address] [place] [address] Lesley Gomez, PAINT SUPERVISOR [address] [place] [address] HCN Clinical Concern/Question Social History Tobacco Use Types Packs/Day Years [...] place to sleep or slept in a detention (including now)? No 02/24/2024 PHQ-9 Answer Date [...] any time in the past 12 m [facility], were you homeless or living in a detention (including now)? No 12/14/2024 Utilities Answer Date [...] encounter Miscellaneous Notes * Telephone Encounter - Molly Gomez LPN - 01/21/2025 3:52 PM EDT Spoke to pt. Discussed he was in ER back in August and was prescribed hydrochlorothiazide 25mg every day. Pt saw Lesley 12/14, but med wasn't added to list. Current BP was 131/86. Pt scheduled for tomorrow. * Telephone Encounter - Eryn Parra - 01/21/2025 3:33 PM EDT Clinical Concern/Question Reason for Call: patient prescribed a water pill in the ED / wanting to know how to get it refilled/ nurse call Best contact number: [phone] (mobile) Optimal time of day to reach caller: ANYTIME Additional comments/information from caller: None Note: Please do not reply to this message. Follow-up communication and further actions as a result of this message need to be communicated with the patient directly, if the patient is not active onMyChart. If the patient is active on MyChart, they will receive notification of the communication/outcome via MyChart. documented in this encounter Plan of Treatment [...] documented as of this encounter Care Teams Crust Sorter Relationship Specialty Start Date End Date Lesley Gomez APRN [facility] [address] [place] [address] PCP - General 12/09/20 Nolan Moeller MD [address] [place] [address] Consulting Physician Neurology 01/13/24 documented as of this encounter
--- OUTSIDE RECORDS SUMMARY | 2025-03-09 23:37 | XMS_ITS | Encounter Summary ---
Author Organization [facility] Address [address] [place] [address] Care Team Providers Care Night Order Selector Name Role Phone JasonLesley AAKASH Primary Care Provider [phone] Nolan Moeller MD Unavailable Reason for Referral * Genetic Testing (Routine) - Closed Specialty Diagnoses / Procedures Referred By Contac t Referred To Contact Lab Diagnoses Recurrent infections Procedures IgM Ayden Kennedy DO [address] [facility] [address] [place] [address] Phone: tel: fax: Referral ID Status Reason Start Date Expiration Date Visits Re quested Visits Authorized [id number] Closed 02/17/2024 08/18/2025 1 1 * Genetic Testing (Routine) - Closed Specialty Diagnoses / Procedures Referred By Contac t Referred To Contact Lab Diagnoses Recurrent infections Procedures IgG Ayden Kennedy DO [address] [facility] [address] [place] [address] Phone: tel: fax: Referral ID Status Reason Start Date Expiration Date Visits Re quested Visits Authorized [id number] Closed 02/17/2024 08/18/2025 1 1 * Genetic Testing (Routine) - Closed Specialty Diagnoses / Procedures Referred By Contac t Referred To Contact Lab Diagnoses Recurrent infections Procedures IgA Ayden Kennedy DO [address] [facility] [address] [place] [address] Phone: tel: fax: Referral ID Status Reason Start Date Expiration Date Visits Re quested Visits Authorized [id number] Closed 02/17/2024 08/18/2025 1 1 Encounter Details Date Type Department Care Team (Late st Contact Info) Description 02/17/2024 Community Orders Community [facility] [address] [place] [address] Ayden Kennedy DO [address] [facility] [address] [place] [address] Recurrent infections (Primary Dx) Social History Tobacco [...] place to sleep or slept in a skilled nursing (including now)? No 10/03/2023 Utilities Answer Date [...] ug/mL 02/21/2024 1:29 PM EDT [facility] ([place]) Pneumo serotype 3 IgG (P13,PNX) 0.88 ug/mL 02/21/2024 1:29 PM EDT [facility] ([place]) Pneumo serotype 4 IgG (P7,P13,PNX) 0.44 ug/mL 02/21/2024 1:29 PM EDT [facility] ([place]) Pneumo serotype 5 IgG (P13,PNX) 2.02 ug/mL 02/21/2024 1:29 PM EDT [facility] ([place]) Pneumo serotype 6B IgG (P7,P13,PNX) 1.20 ug/mL 02/21/2024 1:29 PM EDT [facility] ([facility]) Pneumo serotype 7F IgG (P13,PNX) 0.32 ug/mL 02/21/2024 1:29 PM EDT [facility] ([facility]) Pneumo serotype 8 IgG (PNX) 0.25 ug/mL 02/21/2024 1:29 PM EDT [facility] ([facility]) Pneumo serotype 9N IgG (PNX) 0.55 ug/mL 02/21/2024 1:29 PM EDT [facility] ([facility]) Pneumo serotype 9V IgG (P7,P13,PNX) 0.27 ug/mL 02/21/2024 1:29 PM EDT [facility] ([facility]) Pneumo serotype 12F IgG (PNX) 0.51 ug/mL 02/21/2024 1:29 PM EDT [facility] ([facility]) Pneumo serotype 14 IgG (P7,P13,PNX) 0.33 ug/mL 02/21/2024 1:29 PM EDT [facility] ([facility]) Pneumo serotype 18C IgG (P7,P13,PNX) 0.69 ug/mL 02/21/2024 1:29 PM EDT [facility] ([facility]) Pneumo serotype 19F IgG (P7,P13,PNX) 7.69 ug/mL 02/21/2024 1:29 PM EDT [facility] ([facility]) Pneumo serotype 23F IgG (P7,P13,PNX) 0.19 ug/mL 02/21/2024 1:29 PM EDT [facility] ([facility]) Pneumo Serotype Interpretation See Note 02/21/2024 1:29 PM EDT [facility] ([facility]) Blood Venous blood specimen / Unknown Venipuncture / Unknown 02/18/2024 7:43 AM EDT 02/18/2024 7:44 AM EDT Narrative [facility] ([facility]) - 02/21/2024 1:29 PM EDT INTERPRETIVE INFORMATION: [...] protection.(Lena, 2015) References: 1. Lena JUSTICE, Heidy RITTER, Tim X, et al. Multilaboratory assessment of threshold versus fold-change algorithms for minimizing analytical variability in multiplexed pneumococcal IgG measurements. Clin Vaccine Immunol. 2014;21(7):982-988. 2. Lena JUSTICE, Sonido HERNÁNDEZ. Use and clinical interpretation of pneumococcal antibody measurements in the evaluation of humoral immune function. Clin Vaccine Immunol. 2015;22(2):148-152. This test was developed and its performance characteristics determined by [email or web address]. It has not been cleared or approved by the U.S. Food and Drug Administration. This test was performed in a CLIA-certified laboratory and is intended for clinical purposes. Performed By: [email or web address] [address] [place] [address] Biofuels Technology Manager: Andrea Bell MD, PhD CLIA Number: [id number] Kell Kailey Kennedy [employer] LAB BLOOD ORDERABLES Final R esult Performing Organization Address [facility] Co de Phone Number [facility] IV[place]) [address] [place] [address] * Tetanus antibody, IgG (02/18/2024 7:43 AM EDT) Tetanus Antibody, IgG 2.3 IU/mL 02/20/2024 4:[address] [facility] ([place]) Serum Venous blood specimen / Unknown 02/18/2024 7:43 AM EDT 02/18/2024 7:44 AM EDT N[address] [facility]) - 02/20/2024 4:15 PM EDT INTERPRETIVE [...] developed and its performance characteristics determined by [email or web address]. It has not been cleared or approved by the US Food and Drug Administration. This test was performed in a CLIA certified laboratory and is intended for clinical purposes. Performed By: [email or web address] [address] [place], [place] [id number] [employer]fuels Technology Manager: Andrea Bell MD, PhD CLIA Number: [id number] Kell Kailey Kennedy LAB BLOOD ORDERABLES Final R esult Performing Organization Address [facility]/ZIP Co de Phone Number [facility] ([place]) [address] [place] [address] * IgM (02/18/2024 7:43 AM EDT) IGM 48 35 - 225 mg/dL 02/18/2024 1:21 PM EDT [facility] Blood Venous blood specimen / Unknown Venipuncture / Unknown 02/18/2024 7:43 AM EDT 02/18/2024 7:44 AM EDT [employer] LAB BLOOD ORDERABLES Final R esult Performing Organization Address City/[facility]/ZIP Co de Phone Number [facility] [address] [place] [address] * IgG (02/18/2024 7:43 AM EDT) IGG 990 720 - 1,589 mg/dL 02/18/2024 1:21 PM EDT [facility] Blood Venous blood specimen / Unknown Venipuncture / Unknown 02/18/2024 7:43 AM EDT 02/18/2024 7:44 AM EDT [employer] LAB BLOOD ORDERABLES Final R esult Performing Organization Address City/[facility] Co de Phone Number [facility] [address] [place] [address] * IgA (02/18/2024 7:43 AM EDT) IGA 381 75 - 400 mg/dL 02/18/2024 1:21 PM EDT [facility] Blood Venous blood specimen / Unknown Venipuncture / Unknown 02/18/2024 7:43 AM EDT 02/18/2024 7:44 AM EDT [employer] LAB BLOOD ORDERABLES Final R esult Performing Organization Address City/[facility]/ZIP Co de Phone Number [facility] [address] [place] [address] * CBC and differential (02/18/2024 7:43 AM EDT) WBC Count 6.89 3.70 - 10.30 10*3/uL LAB HEMATOLOGY METHOD 02/18/2024 1:12 PM EDT [facility] RBC Count 5.34 4.60 - 6.10 10*6/uL LAB HEMATOLOGY METHOD 02/18/2024 1:12 PM EDT [facility] HGB 15.8 13.7 - 17.5 g/dL LAB HEMATOLOGY METHOD 02/18/2024 1:12 PM EDT [facility] HCT 48.7 40.0 - 51.0 % LAB HEMATOLOGY METHOD 02/18/2024 1:12 PM EDT [facility] Platelet Count 296 155 - 369 10*3/uL LAB HEMATOLOGY METHOD 02/18/2024 1:12 PM EDT [facility] MCV 91 79 - 98 fL LAB HEMATOLOGY METHOD 02/18/2024 1:12 PM EDT [facility] MCH 29.6 26.0 - 32.0 pg LAB HEMATOLOGY METHOD 02/18/2024 1:12 PM EDT [facility] MCHC 32.4 30.7 - 35.5 g/dL LAB HEMATOLOGY METHOD 02/18/2024 1:12 PM EDT [facility] RDW 12.8 11.5 - 14.5 % LAB HEMATOLOGY METHOD 02/18/2024 1:12 PM EDT [facility] MPV 10.5 8.8 - 12.5 fL LAB HEMATOLOGY METHOD 02/18/2024 1:12 PM EDT [facility] nRBC 0.0 <=0.0 per 100 WBCs LAB HEMATOLOGY METHOD 02/18/2024 1:12 PM EDT [facility] Differential Type Automated LAB HEMATOLOGY METHOD 02/18/2024 1:12 PM EDT [facility] Neutrophils % 52.0 % LAB HEMATOLOGY METHOD 02/18/2024 1:12 PM EDT [facility] Lymphocytes % 33.0 % LAB HEMATOLOGY METHOD 02/18/2024 1:12 PM EDT [facility] Monocytes % 11.0 % LAB HEMATOLOGY METHOD 02/18/2024 1:12 PM EDT [facility] Eosinophils % 3.0 % LAB HEMATOLOGY METHOD 02/18/2024 1:12 PM EDT [facility] Basophils % 1.0 % LAB HEMATOLOGY METHOD 02/18/2024 1:12 PM EDT [facility] Immature Granulocytes % 0.0 % LAB HEMATOLOGY METHOD 02/18/2024 1:12 PM EDT [facility] Neutrophils Absolute 3.55 1.60 - 6.10 10*3/uL LAB HEMATOLOGY METHOD 02/18/2024 1:12 PM EDT [facility] Lymphocytes Absolute 2.27 1.20 - 3.90 10*3/uL LAB HEMATOLOGY METHOD 02/18/2024 1:12 PM EDT [facility] Monocytes Absolute 0.75 0.30 - 0.90 10*3/uL LAB HEMATOLOGY METHOD 02/18/2024 1:12 PM EDT [facility] Eosinophils Absolute 0.22 0.00 - 0.50 10*3/uL LAB HEMATOLOGY METHOD 02/18/2024 1:12 PM EDT [facility] Basophils Absolute 0.08 0.00 - 0.10 10*3/uL LAB HEMATOLOGY METHOD 02/18/2024 1:12 PM EDT [facility] Immature Granulocytes Absolute 0.02 0.00 - 0.06 10*3/uL LAB HEMATOLOGY METHOD 02/18/2024 1:12 PM EDT [facility] Blood Venous blood specimen / Unknown Venipuncture / Unknown 02/18/2024 7:43 AM EDT 02/18/2024 7:44 AM EDT Narrative [facility] - 02/18/2024 1:12 PM EDT Therapeutic decision making should be based on absolute values, rather than percentages. Ayden Kennedy DO LAB BLOOD ORDERABLES Final R esult [facility] [address] [place] [address] documented in this encounter Visit Diagnoses Diagnosis [...] documented as of this encounter Care Teams Night Order Selector Relationship Specialty Start Date End Date Lesley Gomez APRN [address] [address] PCP - General 12/09/20 Nolan Moeller MD [address] [facility] [address] [place] [address] Consulting Physician Neurology 01/13/24 documented as of this encounter
--- OUTSIDE RECORDS SUMMARY | 2025-03-09 23:37 | XMS_ITS | Encounter Summary ---
Author Organization [employer] ([place], [place], [place], [place]) Address [address] [place] [address] Care Team Providers Care Quarrying Manager Name Role Phone Lesley Gomez NP Primary Care Provider Reason for Referral * Ultrasound (Routine) - Authorized Specialty Diagnoses / Procedures Referred By Contac t Referred To Contact Radiology Diagnoses Abnormal finding on diagnostic imaging of right testicle Procedures Ultrasound scrotum and testicles Edgard Bailey MD [address] [address] Phone: tel: fax: [facility] Ultrasound [address] [place] [address] Phone: tel: fax: Referral ID Status Reason Start Date Expiration Date V isits Requested Visits Authorized [id number] Authorized 03/05/2025 03/05/2026 1 1 Encounter Details Date Type Department Care Team (Late st Contact Info) Description 03/05/2025 Orders Only [facility] Urology - [facility] [address] [address] Edgard Bailey MD [address] [address] Abnormal finding on diagnostic imaging of right testicle (Primary Dx); Hydrocele, unspecified hydrocele type; Epididymal cyst Social History Tobacco Use Types Packs/Day Years [...] Date Rubens rded Speak language other than Swazi at home Not on file 01/22/2024 Want [...] on file documented as of this encounter Progress Notes * Mary Jo Almanza - 03/05/2025 11:51 AM EDT Scrotum ultrasound documented in this encounter Plan of Treatment Upcoming Encounters Date Type Department Care Team (Late st Contact Info) Description 03/17/2025 11:00 AM EDT Appointment [facility] Ultrasound [address] [place] [address] Edgard Bailey MD [address] [place] [address] 03/25/2025 10:30 AM EDT Office Visit [facility] Urology - [facility] [address] [address] Edgard Bailey MD [address] [address] Scheduled Orders Name Type Priority Associated Diagnoses Orde r Schedule Ultrasound scrotum and testicles Imaging Routine Abnormal finding on diagnostic imaging of right testicle Expected: 03/05/2025, Expires: 03/05/2026 documented as of this encounter Visit Diagnoses Diagnosis Abnormal finding on diagnostic imaging of right testicle- Primary Hydrocele, unspecified hydrocele type Epididymal cyst Other specified disorder of male genital organs documented in this encounter Care Teams Quarrying Manager Relationship Specialty Start Date End Date Lesley Gomez, TOOL AND DIE REPAIRER [address] [place] [address] [place] [address] PCP - General Nurse Practitioner 03/09/24 documented as of this encounter
--- OUTSIDE RECORDS SUMMARY | 2025-03-09 23:37 | XMS_ITS | Encounter Summary ---
Author Organization [employer] ([place], [place], [place], [place]) Address [address] [place] [address] Care Team Providers Care Website Developer Name Role Phone Lesley Gomez NP Primary Care Provider [phone] Encounter Details Date Type Department Care Team (Late st Contact Info) Description 01/18/2025 Outside Orders [facility] Admitting [address] [place] [address] Edgard Bailey MD [address] [facility] [address] [place] [address] Abnormal finding (Primary Dx) Social [...] Date Rubens rded Speak language other than Bahraini at home Not on file 01/22/2024 Want [...] Appointment [facility] Ultrasound [address] [place] [address] Edgard Bailey MD [address] [place] [address] 03/25/2025 10:30 AM EDT Office Visit [facility] Urology - [place] [address], [address] [place] [address] Edgard Bailey MD [address] [place] [address] documented as of this encounter Results * Beta-hCG, Serum Quant Tumor Marker(SENDOUT) (01/18/2025 12:39 PM EDT) [facility] Beta-hCG Quant Tumor Marker <1 0 - 3 IU/L 01/21/2025 10:40 AM EDT [facility] Comment: INTERPRETIVE INFORMATION: Beta hCG, Serum Quantitation [...] reference intervals for this test in the [facility] ([facility]). This test was developed and its performance characteristics determined by [facility]. It has not been cleared or approved by the US Food and Drug Administration. This test was performed in a CLIA certified laboratory and is intended for clinical purposes. Performed By: [facility] [address] [place] [address] [employer] Mechanical: Andrea Bell MD, PhD CLIA Number: [id number] Blood Venipuncture / Unknown 01/18/2025 12:39 PM EDT 01/18/2025 12:45 PM EDT us Edgard Bailey MD LAB BLOOD ORDERABLES Final Resul t [employer] [address] [place] [address], [facility] [phone] documented in this encounter Visit Diagnoses Diagnosis Abnormal finding- Primary Other nonspecific abnormal finding documented in this encounter Care Teams Website Developer Relationship Specialty Start Date End Date Lesley Gomez, GRACIA [address] [facility] [place] [address] PCP - General Nurse Practitioner 03/09/24 documented as of this encounter
--- OUTSIDE RECORDS SUMMARY | 2025-03-09 23:37 | XMS_ITS | Encounter Summary ---
Author Organization [employer] ([place], [place], [place], [place]) Address [address] [place] [address] Care Team Providers Care Sales Leader Name Role Phone JasonAvinashwilber Vanessa NP Primary Care Provider [phone] Encounter Details Date Type Department Care Team (Late st Contact Info) Description 03/09/2024 Outside Orders [facility] Admitting [address] [place] [address] Edgard Bailey MD [address] [facility] [place] [address] Social History Tobacco Use Types [...] Date Rubens rded Speak language other than Kyrgyz at home Not on file 01/22/2024 Want [...] Appointment [facility] Ultrasound [address] [place] [address] Edgard Bailey MD [address] [address] 03/25/2025 10:30 AM EDT Office Visit [facility] Urology - [place] [address] [address] [address] Edgard Bailey MD [address] [address] documented as of this encounter Visit Diagnoses Not on filedocumented in this encounter Care Teams Sales Leader Relationship Specialty Start Date End Date Lesley Gomez, BARIATRIC PROGRAM COORDINATOR [address] [place] [address] [place] [address] PCP - General Nurse Practitioner 03/09/24 documented as of this encounter
--- OUTSIDE RECORDS SUMMARY | 2025-03-09 23:37 | XMS_ITS | Encounter Summary ---
Author Organization Healthcare Address [address] [place] [id number] Care Team Providers Care Metal Fabricating Shop Helper Name Role Phone Lesley Gomez PIGMENT WEIGHER Primary Care Provider [phone] Nolan Moeller MD Unavailable Reason for Visit * Reason Onset Date Comments HCN - Patient Message 01/05/2025 Encounter Details Date Type Department Care Team (Late st Contact Info) Description 01/05/2025 Telephone [facility] Medicine [address] [place] [address] Lesley Gomez, PIGMENT WEIGHER [address] [place] [address] HCN - Patient Message Social [...] place to sleep or slept in a alf (including now)? No 02/24/2024 PHQ-9 Answer Date [...] any time in the past 12 m [facility], were you homeless or living in a alf (including now)? No 12/14/2024 Utilities Answer Date [...] was faxed to Dr. Dawson anderson in [facility]. Please call and advise Thanks Best contact number: [phone] (mobile) Optimal time of day to reach caller: ANYTIME Additional comments/information from caller: None Note: Please do not reply to this message. Follow-up communication and further actions as a result of this message need to be communicated with the patient directly, if the patient is not active onMyChart. If the patient is active on MyChart, they will receive notification of the communication/outcome via [employer]. documented in this encounter Plan of Treatment [...] documented as of this encounter Care Teams Metal Fabricating Shop Helper Relationship Specialty Start Date End Date Lesley Gomez APRN [address] [place] [address] PCP - General 12/09/20 Nolan Moeller MD [address] [place] [address] Consulting Physician Neurology 01/13/24 documented as of this encounter
--- OUTSIDE RECORDS SUMMARY | 2025-03-09 23:37 | XMS_ITS | Encounter Summary ---
Author Organization [facility] Address [address] [id number] Care Team Providers Care Soaker Hides Name Role Phone Lesley Gomez DOUGH MOLDER Primary Care Provider [phone] Nolan Moeller MD Unavailable Reason for Visit * Reason Onset Date Comments HCN - Patient Message 12/23/2024 Encounter Details Date Type Department Care Team (Late st Contact Info) Description 12/23/2024 Telephone [facility] Medicine [address] [place] [address] Lesley Gomez, DOUGH MOLDER [address] [place] [address] HCN - Patient Message Social [...] any time in the past [address] [facility], were you homeless or living [...] liver, outside imaging is under media from [facility] that should be sent with referral. [...] optimal time of day to reach caller: [phone] Note: Please do not reply to this message. Follow-up communication and further actions as a result of this message need to be communicated with the patient directly, if the patient is not active onMyChart. If the patient is active on MyChart, they will receive notification of the communication/outcome via [employer]. documented in this encounter Plan of Treatment [...] documented as of this encounter Care Teams Soaker Hides Relationship Specialty Start Date End Date Lesley Gomez APRN [address] [place] [address] PCP - General 12/09/20 Nolan Moeller MD [id number] [place] [address] Consulting Physician Neurology 01/13/24 documented as of this encounter
--- OUTSIDE RECORDS SUMMARY | 2025-03-09 23:37 | XMS_ITS | Encounter Summary ---
Author Organization Healthcare Address [address] [place] [address] Care Team Providers Care Agriculture Sales Account Manager Name Role Phone Lesley Gomez PHYTOPATHOLOGIST Primary Care Provider [phone] Nolan Moeller MD Unavailable Reason for Visit * Reason Onset Date Comments Med Refill 02/25/2025 Encounter Details Date Type Department Care Team (Late st Contact Info) Description 02/25/2025 Refill [facility] Medicine [address] [place] [address] Lesley Gomez, PHYTOPATHOLOGIST [address] [place] [address] Subacute maxillary sinusitis; Right chronic serous otitis media Social History Tobacco Use Types Packs/Day Years [...] any time in the past 12 m [facility], were you homeless or living in a nursing home (including now)? No 12/14/2024 AUDIT-C Answer Date Recorded Q1: How often do you have a drink containing alcohol? Never 02/25/2025 Q2: How many drinks containi ng alcohol do you have on a typical day when you are drinking? Patient does not drink 07/31/202 5 Q3: How often do you have si [...] encounter Miscellaneous Notes * Telephone Encounter - Brittany Gutierrez - 02/25/2025 1:31 PM EDT Pt has appt today to be evaluated. documented in this encounter Plan of Treatment Not on file documented as of this encounter Visit Diagnoses Diagnosis Subacute maxillary sinusitis Right chronic serous otitis media Simple or unspecified chronic serous otitis media [...] documented as of this encounter Care Teams Agriculture Sales Account Manager Relationship Specialty Start Date End Date Lesley Gomez APRN [address] [place] [address] PCP - General 12/09/20 Nolan Moeller MD [address] [facility] [address] [place] [address] Consulting Physician Neurology 01/13/24 documented as of this encounter
--- OUTSIDE RECORDS SUMMARY | 2025-03-09 23:37 | XMS_ITS | Clinical Summary ---
[facility] Organization [facility] Address [address] [place] [address] Care Team Providers Care Plastic Parts Fabricator Trimmer Name Role Phone Lesley Gomez APRN Primary Care Provider Social History Tobacco Use Types Packs/Day Years Used Date Smoking Tobacco: Never Assessed Abuse Screen Answer Date Recorded Unsafe at Home or Work/School Not on file Feels Threatened by Someone? Not on file 04/2023 Does Anyone Keep You from Co ntacting Others or Doint Things Outside the Home? Not on file 05/07/2023 Physical Sign of Abuse Present Not on file 1 Housing Stability Answer Date Recorded Current Living Arrangements Not on file 04/28 Potentially Unsafe Housing Conditions Not on isha e 05/07/2023 Family and Community Support Answer Rik e Recorded Help with Day-to-Day Activities Not on file 05/07/2023 Lonely or Isolated Not on file 05/07/2023 Employment Answer Date Recorded Do you want help finding or keeping work or a barbara b? Not on file 05/07/2023 Disabilities Answer Date Recorded Concentrating, Remembering, or Making Decisions Difficulty Not on file 05/07/2023 Doing Errands Independently Difficulty Not on fi le 05/07/2023 Education Answer Date Recorded Help with school or training? Not on file Preferred Language Not on file 05/07/2023 Sex and Gender Information Value Date Recorded Sex Assigned at Not on file Legal Sex Male 1:45 PM EDT Gender Identity Not on file Sexual Orientation Not on file Last Filed Vital Signs Vital Sign Reading Time Taken Comments Blood Pressure 136/98 01/26/2015 9:30 AM EDT Pulse 76 01/26/2015 9:30 AM EDT Temperature - - Respiratory Rate 18 01/26/2015 9:30 AM EDT Oxygen Saturation 98% 01/26/2015 9:30 AM EDT Inhaled Oxygen Concentration - - Weight 99.8 kg (220 lb) 01/26/2015 9:30 AM EDT Height 188 cm (6' 2 ) 01/26/2015 9:30 AM EDT Body Mass Index 28.25 01/26/2015 9:30 AM EDT Plan of Treatment Health Maintenance Due Date Last Done Comments ANNUAL PHYSICAL 1977 HEPATITIS C SCREENING 1977 TDAP/TD VACCINES (1 - Tdap) 1996 COLOGUARD 2022 COLON CANCER SCREENING 5 YEA R SIGMOIDOSCOPY 2022 COLONOSCOPY 2022 COL[address]AL CANCER SCREENING 2022 CT COLONOGRAPHY 2022 FECAL OCCULT BLOOD TEST 2022 FIT Testing (1 year) 2022 COVID-19 Vaccine (1 - 2023-2 5 season) 2024 INFLUENZA VACCINE 04/28/2025 Pneumococcal Vaccine 0-49 Aged Out No longer eligible based on patient's age to complete this topic Insurance [facility] [place] [address] Care Teams Plastic Parts Fabricator Trimmer Relationship Specialty Start Date End Date Lesley Gomez APRN [address] [place] [id number] PCP - General Family Medicine 03/02/20
--- OUTSIDE RECORDS SUMMARY | 2025-03-09 23:37 | XMS_ITS | Clinical Summary ---
Author Organization [facility] Address [address] [place] [address] Care Team Providers Care Process Eng Name Role Phone JasonLesley AAKASH Primary Care Provider [phone] Nolan Moeller MD Unavailable Allergies Active Allergy [...] day. 1 Active rivaroxaban (Xarelto) 20 MG tabletIndications :PE (pulmonary thromboembolism) ([facility]) Take 1 tablet (20 mg) by mouth 1 (one) time each day. Take with food. 30 tablet 11 3 Active famotidine (Pepcid) 20 MG tabletIndications :Nausea Take 1 tablet by mouth twice daily 180 tablet 2 4 Active atorvastatin (Lipitor) 10 MG tabletIndications :Dyslipidemia Take 1 tablet (10 mg) by mouth 1 (one) time each day. 90 tablet 2 4 Active omeprazole (PriLOSEC) [address] capsuleIndication s:Gastroesophagea l reflux disease without esophagitis Take 1 capsule (40 mg) by mouth 1 (one) time each day. 90 capsule 2 4 Active hydrOXYzine HCl (Atarax) 25 MG tabletIndications :Generalized anxiety disorder Take 1 tablet (25 mg) by mouth every 6 hours as needed for anxiety. 30 tablet 1 5 Active cyclobenzaprine (Flexeril) 10 MG tabletIndications :Arthritis, multiple joint involvement Take 1 tablet by mouth at night as needed for muscle spasms. 90 tablet 3 5 Active FLUoxetine (PROzac) 20 MG capsuleIndication s:Generalized anxiety disorder Take 1 capsule by mouth once daily 90 capsule 3 5 Active hydroCHLOROthiazi de (HYDRODiuril) 25 MG tabletIndications :Essential (primary) hypertension Take 1 tablet by mouth daily. 90 tablet 3 5 Active sulfamethoxazole- trimethoprim (Bactrim DS) 800-160 MG tabletIndications :Right chronic serous otitis media Take 1 tablet by mouth 2 times a day for 7 days. 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 Headache, variant migraine 05/09/2016 Dyslipidemia 02/03/2016 Pulmonary embolism and infarction 10/23/2014 Esophageal reflux 10/23/2014 Fatty liver 10/23/2014 Encounters Date Type Department Care Team Description 03/09/2025 Refill [facility] [address] [place] [address] Charito Hughes APRN Dyslipidemia 02/25/2025 2:40 PM EDT Office Visit [facility] [address] [place] [address] Nava Figueredo, MATHEMATICS ACADEMIC CHAIR, DNP Right chronic serous otitis media (Primary Dx) 02/25/2025 Travel 02/25/2025 Refill [facility] [address] [place] [address] Lesley Gomez APRN Subacute maxillary sinusitis; Right chronic serous otitis media 01/22/2025 8:40 AM EDT Office Visit [facility] [address] [place] [address] Michelle Mix APRN Essential (primary) hypertension (Primary Dx) 01/22/2025 Travel 01/21/2025 Telephone [facility] [address] [place] [address] Lesley Gomez APRN HCN Clinical Concern/Question 01/19/2025 Refill [facility] [address] [place] [address] Lesley Gomez APRN 01/05/2025 Telephone [facility] [address] [place] [address] Lesley Gomez APRN HCMarce - Patient Message 12/23/2024 Telephone [facility] [address] [place] [address] Lesley Gomez APRN HCMarce - Patient Message 12/19/2024 Refill [facility] [address] [place] [address] Marylin Castillo, AAKASH Generalized anxiety disorder 12/14/2024 9:20 AM EDT Office Visit [facility] [address] [place] [address] Lesley Gomez APRN Right chronic serous otitis media (Primary Dx); Generalized anxiety disorder 12/14/2024 Travel 12/11/2024 Telephone [facility] [address] [place] [address] Lesley Gomez APRN HCMarce - Patient Message from Last 3 Months Family History Medical [...] any time in the past 12 m [facility], were you homeless or living in a fdc (including now)? No 12/14/2024 AUDIT-C Answer Date [...] the past 12 months has th e [employer], gas, oil, or water company threatened to [...] Mass Index 30.32 02/25/2025 3:00 PM EDT Plan of Treatment Health Maintenance [...] 2022 FIT 2022 FOBT 2022 Sigmoidoscopy 2022 [id number] Vaccine ( - season) 2024 [facility]-Influenza Vaccine (#1) 2025 Colonoscopy 04/20/2025 04/20/2015, 04/20/2015 [facility]-Colorectal Cancer Screening 04/20/2025 [facility]- SDOH Screenings 06/16/2025 [facility]-Adult SDOH Screenings 06/16/2025 12/14/2024 [facility]-Depression Screening 12/14/2025 12/14/2024, 11/26 [facility]-Zoster Vaccines (1 of 2) 2027 [facility]-Obesity Intervention Completed 025, 12/14/2024, 10/01/2024, Additional history exists HPV Vaccines Aged Out [...] Most Recently Relevant to Health Maintenance Insurance [facility] MEDICARE Care Teams Process Eng Relationship Specialty Start Date End Date Lesley Gomez APRN [address] [place] [address] PCP - General 12/09/20 Nolan Moeller MD [address] [facility] [address] [place] [address] Consulting Physician Neurology 01/13/24
[2025-03-09] MEDS: METHOCARBAMOL 500MG TABLET 1500 MG PO (23:57)
[2025-03-09] MEDS: LIDOCAINE 5% TRANSDERMAL PATCH 1 EACH TD (23:58)
[2025-03-10 00:08] VITALS: BP 132/85; PULSE 69; RESP 18; TEMP 36.7; O2SAT 99
== END 2025-03-10 00:08 | disposition home or self-care (01) ==
PROVIDERS: Emergency Provider Emergency Medicine; PCP Nurse Practitioner Family
DX: S39.011A Strain of muscle, fascia and tendon of abdomen, initial encounter (principal); X50.0XXA Overexertion from strenuous movement or load, initial encounter
CPT/HCPCS: 99283

== ENCOUNTER 2025-04-11 23:48 | Emergency (ER) | payer MEDICARE, MEDICAID, SELFPAY ==
--- OUTSIDE RECORDS SUMMARY | 2025-02-25 14:40 | XMS_ITS | Encounter Summary ---
Author Organization Healthcare Address [address] [id number] Care Team Providers Care Hand Wood Sander Name Role Phone Lesley Gomez APRN Primary Care Provider [phone] Nolan Moeller MD Unavailable Reason for Visit * Reason Comments Earache Right ear - pain - s tarted yesterday Encounter Details Date Type Department Care Team (Late st Contact Info) Description 02/25/2025 2:40 PM EDT Office Visit [facility] [address] [place] [address] Nava Figueredo, AAKASH, DNP [address] [place] [address] Right chronic serous otitis media [...] place to sleep or slept in a longterm (including now)? No 02/24/2024 PHQ-9 Answer Date [...] any time in the past 12 m [facility], were you homeless or living in a longterm (including now)? No 12/14/2024 AUDIT-C Answer Date [...] the past 12 months has th e [employer], gas, oil, or water company threatened to [...] Notes * Progress Notes - Nava Figueredo, PANEL EDGE PAINTER, DNP - 02/25/2025 2:40 PM EDT Subjective [...] Social Connections: Low Risk (01/22/2024) Received from [facility] ([place], [place], [place], [place]) Family and Community [...] (1 of 2 - PCV) Never done [id number] Vaccine (1 - season) Never done [facility]-Influenza [...] SURGICAL HISTORY N/A History of endoscopy from [facility] OTHER SURGICAL HISTORY N/A History of vasectomy from [facility] [4] Current Outpatient Medications on File Prior [...] documented as of this encounter Care Teams Hand Wood Sander Relationship Specialty Start Date End Date Lesley Gomez APRN [address] [place] [phone] PCP - General 12/09/20 Nolan Moeller MD [address] [facility] [address] [place] [address] Consulting Physician Neurology 01/13/24 documented as of this encounter
--- OUTSIDE RECORDS SUMMARY | 2025-03-17 10:36 | XMS_ITS | Encounter Summary ---
Author Organization [employer] ([place], [place], [place], [place]) Address [address] [place] [address] Care Team Providers Care Splunk Dashboard Developer Name Role Phone Lesley Gomez NP Primary Care Provider [phone] Reason for Referral * Ultrasound (Routine) - Closed Specialty Diagnoses / Procedures Referred By Kaidenac t Referred To Contact Radiology Diagnoses Abnormal finding on diagnostic imaging of right testicle Procedures Ultrasound scrotum and testicles Edgard Bailey MD [address] [place] [address] Phone: tel: fax: [facility] [address] [place] [address] Phone: tel: fax: Referral ID Status Reason Start Date Expiration Date Visits Re quested Visits Authorized [id number] Closed 03/05/2025 03/05/2026 1 1 Reason for Visit * Ultrasound (Routine) - Closed Specialty Diagnoses / Procedures Referred By Contac t Referred To Contact Radiology Diagnoses Abnormal finding on diagnostic imaging of right testicle Procedures Ultrasound scrotum and testicles Edgard Bailey MD [address] [address] Phone: tel: fax: [facility] [address] [place] [address] Phone: tel: fax: Referral ID Status Reason Start Date Expiration Date Visits Re quested Visits Authorized [id number] Closed 03/05/2025 03/05/2026 1 1 Encounter Details Date Type Department Care Team (Latest Contact Info) Description 03/17/2025 10:36 AM EDT - 03/17/2025 11:59 PM EDT Hospital Encounter [facility] [address] [place] [address] Edgard Bailey MD [address] [place] [address] Abnormal finding on diagnostic imaging of right testicle Discharge Disposition: Home or Self Care Social History Tobacco Use Types Packs/Day Years [...] Date Rubens rded Speak language other than Estonian at home Not on file 01/22/2024 Want [...] on file documented as of this encounter Medications at Time of Discharge candesartan (ATACAND) 16 MG tablet Take 1 tablet (16 mg total) by mouth daily. 01/31/2024 cyclobenzaprine (FLEXERIL) 10 MG tablet Take 1 tablet (10 mg total) by mouth. 05/08/2023 famotidine (PEPCID) 20 MG tablet Take 1 tablet (20 mg total) by mouth 2 (two) times daily. 01/21/2024 fLUoxetine (PROzac) 20 MG capsule Take 1 capsule (20 mg total) by mouth daily. hydroCHLOROthiazi de (HYDRODIURIL) 12.5 MG tablet Take 1 tablet (12.5 mg total) by mouth daily. montelukast (SINGULAIR) 10 mg tablet Take 1 tablet (10 mg total) by mouth nightly. 02/04/2024 omeprazole (PriLOSEC) 40 MG capsule Take 1 capsule (40 mg total) by mouth. 05/08/2023 Xarelto 20 mg tablet SMARTSI Tablet(s) By Mouth Every Evening 01/24/2024 documented as of this encounter Plan of Treatment Not on file documented as of this encounter Procedures Procedure Name Priority Date/Time Associated Diagnosis Comments US SCROTUM AND TESTICLES Routine 03/17/2025 10:54 AM EDT Abnormal finding on diagnostic imaging of right testicle documented in this encounter Results * Ultrasound scrotum and testicles (03/17/2025 10:54 AM EDT) Anatomical Region Laterality Modality Testes Ultrasound 03/17/2025 4:46 PM EDT Impressions 03/17/2025 4:52 PM EDT 1. No evidence of testicular mass or torsion . 2. Stable complex right hydrocele. 3. Decreased blood flow to the superior pole of the right testicle as compared to the previous study. The right testicle remains heterogeneous. Images reviewed, interpreted, and dictated by Dr. Korey Blevins. Transcribed by Mya Espinoza PA-C. Narrative 03/17/2025 4:52 PM EDT TESTICULAR ULTRASOUND HISTORY: Abnormal testicular ultrasound. COMPARISON: August 2024 PROCEDURE: Ultrasound images of the testicles were obtained bilaterally. Color Doppler images were obtained. FINDINGS: There is a moderate, complex right hydrocele measuring 6.5 x 3.8 cm. The right testicle is heterogeneous particularly along the superior pole which is similar to previous, however there is decreased color blood flow to the upper portion of the testicle. The right epididymis is unremarkable. The left testicle is homogeneous with normal blood flow. No intratesticular masses are identified. Procedure Note Korey Blevins MD - 03/17/2025 TESTICULAR ULTRASOUND HISTORY: Abnormal testicular ultrasound. COMPARISON: August 2024 PROCEDURE: Ultrasound images of the testicles were obtained bilaterally. Color Doppler images were obtained. FINDINGS: There is a moderate, complex right hydrocele measuring 6.5 x 3.8 cm. The right testicle is heterogeneous particularly along the superior pole which is similar to previous, however there is decreased color blood flow to the upper portion of the testicle. The right epididymis is unremarkable. The left testicle is homogeneous with normal blood flow. No intratesticular masses are identified. IMPRESSION: 1. No evidence of testicular mass or torsion . 2. Stable complex right hydrocele. 3. Decreased blood flow to the superior pole of the right testicle as compared to the previous study. The right testicle remains heterogeneous. Images reviewed, interpreted, and dictated by Dr. Korey Blevins. Transcribed by Mya Espinoza PA-C. us Edgard Bailey MD G US ORDERABLES Final Result documented in this encounter Visit Diagnoses Diagnosis Abnormal finding on diagnostic imaging of right testicle documented in this encounter Care Teams Splunk Dashboard Developer Relationship Specialty Start Date End Date Lesley Gomez, TRAIL CONSTRUCTION WORKER [id number], [facility] [place] [address] [place] [address] PCP - General Nurse Practitioner 03/09/24 documented as of this encounter
--- OUTSIDE RECORDS SUMMARY | 2025-03-25 10:30 | XMS_ITS | Encounter Summary ---
Author Organization [employer] ([place], [place], [place], [place]) Address [address] [place] [address] Care Team Providers Care Field Research Assistant Name Role Phone Lesley Gomez NP Primary Care Provider [phone] Reason for Visit * Reason Comments Follow-up Testicle ultrasound Encounter Details Date Type Department Care Team (Late st Contact Info) Description 03/25/2025 10:30 AM EDT Office Visit [facility]rology - [address] [address] Edgard Bailey MD [address] [place] [address] Abnormal finding on diagnostic imaging of right testicle (Primary Dx); Hydrocele, unspecified hydrocele type; Epididymal cyst; Scrotum pain; Abnormal ultrasound; Incomplete bladder emptying Social History Tobacco Use Types Packs/Day Years [...] Date Rubens rded Speak language other than Lithuanian at home Not on file 01/22/2024 Want [...] Sign Reading Time Taken Comments Blood Pressure 120/70 03/25/2025 10:20 AM EDT Pulse - - Temperature - - Respiratory Rate - - Oxygen Saturation - - Inhaled Oxygen Concentration - - Weight 106.7 kg (235 lb 4.8 oz) 025 10:20 AM EDT Height 185.4 cm (6' 1 ) 03/25/2025 10:2 0 AM EDT Body Mass Index 31.04 03/25/2025 10:20 AM EDT documented in this encounter Progress Notes * Edgard Bailey MD - 03/25/2025 10:30 AM EDT Subjective: Patient ID: Antwon Ponce is a 49 y.o. male. Chief Complaint: Follow-up (Testicle ultrasound/) The patient returns to clinic today for follow-up of right testicular abnormality and a right hydrocele versus spermatocele. He also has a small epididymal cyst on the left and has had some intermittent left testicular discomfort which is chronic and relatively stable. The patient has had an array of lower urinary tract symptoms that have varied over time. His latest symptom has been a sense of incomplete bladder emptying with some urinary slowing after starting Prozac. The patient continues tonote the right scrotal swelling which is relatively stable and unchanged. He is not having significant pain from this area. The patient underwent a repeat scrotal ultrasound from 03/17/2025 which was compared to August 2024. This shows a stable complex right hydrocele with no testicular mass or torsion but there does appear to be some decreased blood flow to the superior pole of the right testicle. The right testicle remains heterogeneous but with no mass. See past history from 01/18/2025: Patient returns to clinic today for follow-up [...] bone pain or hematuria. Review of Systems All other systems reviewed and are negative. [...] total) by mouth 2 (two) times daily. fLUoxetine (PROzac) 20 MG capsule Take 1 capsule (20 mg total) by mouth daily. hydroCHLOROthiazide (HYDRODIURIL) 12.5 MG tablet Take 1 tablet (12.5 mg total) by mouth daily. montelukast (SINGULAIR) 10 mg tablet Take 1 tablet (10 mg total) by mouth nightly. omeprazole (PriLOSEC) 40 MG capsule Take 1 capsule (40 mg total) by mouth. Xarelto 20 mg tablet SMARTSI Tablet(s) By Mouth Every Evening No current facility-administered medications on file prior to visit. No results found for this or any previous visit (from the past 6 hours). Objective: Vitals: BP 120/70 Ht 1.854 m (6' 1 ) Wt 106.7 kg (235 lb 4.8 oz) BMI 31.04 kg/m?? Physical Exam Constitutional: Appearance: Normal appearance. Genitourinary: Comments: On genital exam, the right hemiscrotum is expanded with a soft, ballotable mass consistent with either hydrocele or spermatocele. I cannot palpate distinct features of the right testicle. Left testicle and paratesticular structures are unremarkable. Neurological: Mental Status: He is alert. Psychiatric: Mood and Affect: Mood normal. Behavior: Behavior normal. Assessment: Antwon was seen today for follow-up. Diagnoses and all orders for this visit: Abnormal finding on diagnostic imaging of right testicle - POCT urinalysis dipstick Hydrocele, unspecified hydrocele type Epididymal cyst Scrotum pain Abnormal ultrasound Incomplete bladder emptying - Bladder Scan - clinic performed Problem List Items Addressed This Visit None Visit Diagnoses Abnormal finding on diagnostic imaging of right testicle - Primary Relevant Orders POCT urinalysis dipstick (Completed) Hydrocele, unspecified hydrocele type Epididymal cyst Scrotum pain Abnormal ultrasound Incomplete bladder emptying Relevant Orders Bladder Scan - clinic performed (Completed) Plan: Anatomic features of the scrotum are stable. The finding of decreased blood flow to the superior pole of the right testicle is not something that is clinically evident. Options for the patient include a watch and wait approach with a repeat scrotal ultrasound in 6 months versus exploration and hydrocele repair versus spermatocele repair. If the testicle itself looks significantly diseased and orchiectomy. For now the patient is in favor of the watch and wait approach. I discussed the possibility of starting medication to assist him with his lower urinary tract symptoms, however, he declines to do so at this time. UA is negative and PVR is estimated at 19 cc. There is no immunization history on file for this patient. Outpatient Encounter Medications as of 03/25/2025 Medication Sig Dispense Refill candesartan (ATACAND) 16 MG tablet Take 1 tablet (16 mg total) by mouth daily. cyclobenzaprine (FLEXERIL) 10 MG tablet Take 1 tablet (10 mg total) by mouth. famotidine (PEPCID) 20 MG tablet Take 1 tablet (20 mg total) by mouth 2 (two) times daily. fLUoxetine (PROzac) 20 MG capsule Take 1 capsule (20 mg total) by mouth daily. hydroCHLOROthiazide (HYDRODIURIL) 12.5 MG tablet Take 1 tablet (12.5 mg total) by mouth daily. montelukast (SINGULAIR) 10 mg tablet Take 1 tablet (10 mg total) by mouth nightly. omeprazole (PriLOSEC) 40 MG capsule Take 1 capsule (40 mg total) by mouth. Xarelto 20 mg tablet SMARTSI Tablet(s) By Mouth Every Evening No facility-administered encounter medications on file as of 03/25/2025. No follow-ups on file. I have reviewed the following as needed: Edgard Bailey MD 03/31/2025 documented in this encounter Plan of Treatment Not on file documented as of this encounter Procedures Procedure Name Priority Date/Time Associated Diagnosis Comments BLADDER SCAN - CLINIC PERFORMED Routine 03/25/2025 10:47 AM EDT Incomplete bladder emptying POCT URINALYSIS, AUTO W/O SCOPE Routine 03/25/2025 10:26 AM EDT Abnormal finding on diagnostic imaging of right testicle documented in this encounter Results * Bladder Scan - clinic performed (03/25/2025 10:47 AM EDT) CC 19 Edgard Bailey MD UROLOGY ORDERABLES Final Result * POCT urinalysis dipstick (03/25/2025 10:26 AM EDT) Glucose Urine, POC Negative Negative Bilirubin Urine, POC Negative Negative Ketones Urine, POC Negative Negative Specific [place] Urine, POC 1.020 SG Ratio 1.005 SG Ratio, 1.010 SG Ratio, 1.015 SG Ratio, 1.020 SG Ratio, 1.025 SG Ratio, 1.030 SG Ratio Blood Urine, POC Negative Negative pH, Urine 6.0 pH units 5.0 pH units, 5.5 pH units, 6.0 pH units, 6.5 pH units, 7.0 pH units, 7.5 pH units, 8.0 pH units Protein Urine, POC Negative Negative Urobilinogen Urine, POC 1 mg/dL 0.2 mg/dL, 1 mg/dL Nitrite Urine, POC Negative Negative Leukocyte Esterase Urine, POC Negative Negative 03/25/2025 10:2 6 AM EDT Edgard Bailey MD POINT OF CARE TEST ORDERABLES Fi nal Result documented in this encounter Visit Diagnoses Diagnosis Abnormal finding on diagnostic imaging of right testicle- Primary Hydrocele, unspecified hydrocele type Epididymal cyst Other specified disorder of male genital organs Scrotum pain Abnormal ultrasound Incomplete bladder emptying documented in this encounter Care Teams Field Research Assistant Relationship Specialty Start Date End Date Lesley Gomez, GRACIA [address] [facility] [place] [address] PCP - General Nurse Practitioner 03/09/24 documented as of this encounter
[2025-04-12] VITALS (7 sets, daily range): BP systolic 131–162; BP diastolic 90–99; PULSE 74–86; RESP 16; TEMP 36.7; O2SAT 96–98; BMI 30.2
[2025-04-12] MEDS: TET/DIPHTH/PERT-ADULT 0.5ML SYRINGE 0.5 ML IM (00:13)
[2025-04-12] MEDS: LIDOCAINE 1% 5ML PF VIAL 5 ML IJ (00:15)
[2025-04-12] MEDS: BACITRACIN ZINC OINT 30GM TUBE TP (01:05)
--- OUTSIDE RECORDS SUMMARY | 2025-04-12 01:15 | XMS_ITS | Clinical Summary ---
Author Organization [employer] ([place], [place], [place], [place]) Address [address] [place] [address] Care Team Providers Care Csm Consultant Name Role Phone Lesley Gomez NP Primary Care Provider [phone] Allergies Active Allergy Reactions Criticality Noted Date [...] Encounters Date Type Department Care Team Description 03/25/2025 10:30 AM EDT Office Visit [facility] Urology - [address], [address] [address] Edgard Bailey MD Abnormal finding on diagnostic imaging of right testicle (Primary Dx); Hydrocele, unspecified hydrocele type; Epididymal cyst; Scrotum pain; Abnormal ultrasound; Incomplete bladder emptying 03/17/2025 10:36 AM EDT - 03/17/2025 11:59 PM EDT Hospital Encounter [facility] Ultrasound [address] [phone] Edgard Bailey MD Abnormal finding on diagnostic imaging of right testicle Discharge Disposition: Home or Self Care 03/16/2025 Travel 03/05/2025 Orders Only [facility] Urology - [address], [facility] [phone] Edgard Bailey MD Abnormal finding on diagnostic imaging of right testicle (Primary Dx); Hydrocele, unspecified hydrocele type; Epididymal cyst 01/18/2025 6:30 PM EDT Lab Patient Walk-In [facility] Lab [address] [place], [place] [phone] Edgard Bailey MD Abnormal finding 01/18/2025 6:15 PM EDT Lab Patient Walk-In [facility] Lab [address] [phone] Edgard Bailey MD Abnormal finding on diagnostic imaging of right testicle (Primary Dx) 01/18/2025 11:45 AM EDT Office Visit [facility] Urology - [address], [facility] [place] [address] Edgard Bailey MD Hydrocele, unspecified hydrocele type (Primary Dx); Abnormal finding on diagnostic imaging of right testicle; Epididymal cyst; Scrotum pain; Prostate cancer screening 01/18/2025 Travel 01/18/2025 Outside Orders [facility] Admitting [address] [place], [place] [phone] Edgard Bailey MD Abnormal finding (Primary Dx) [...] Date Rubens rded Speak language other than Nicaraguan at home Not on file 01/22/2024 Want [...] Mass Index 31.04 03/25/2025 10:20 AM EDT Plan of Treatment Health Maintenance [...] [id number] 02/28/2024 COVID-19 VACCINE (1 - season) 2025 Influenza Vaccine (#1) 2025 Procedures Procedure Name Priority Date/Time Associated Diagnosis Comments BLADDER SCAN - CLINIC PERFORMED Routine 03/25/2025 10:47 AM EDT Incomplete bladder emptying POCT URINALYSIS, AUTO W/O SCOPE Routine 03/25/2025 10:26 AM EDT Abnormal finding on diagnostic imaging of right testicle US SCROTUM AND TESTICLES Routine 03/17/2025 10:54 AM EDT Abnormal finding on diagnostic imaging of right testicle ALPHA FETOPROTEIN TUMOR MARKER(SENDOUT) Routine 01/18/2025 12:39 PM EDT Abnormal finding on diagnostic imaging of right testicle BETA-HCG, SERUM QUANT TUMOR MARKER(SENDOUT) Routine 01/18/2025 12:39 PM EDT Abnormal finding from Last 3 Months Results * Bladder Scan - clinic performed (03/25/2025 10:47 AM EDT) CC 19 us Edgard Bailey MD UROLOGY ORDERABLES Final Result * POCT urinalysis dipstick (03/25/2025 10:26 AM EDT) Glucose Urine, POC Negative Negative Bilirubin Urine, POC Negative Negative Ketones Urine, POC Negative Negative Specific [place] Urine, POC 1.020 SG Ratio 1.005 SG [...] Negative Negative 03/25/2025 10:2 6 AM EDT us Edgard Bailey MD POINT OF CARE TEST ORDERABLES Fi nal Result * Ultrasound scrotum and testicles (03/17/2025 10:54 [...] Korey Blevins. Transcribed by Mya Espinoza PA-C. Edgard Bailey MD [facility] US ORDERABLES Final Result * Beta-hCG, Serum Quant Tumor Marker(SENDOUT) (01/18/2025 12:39 PM EDT) Beta-hCG Quant Tumor Marker <1 0 - 3 IU/L 01/21/2025 10:40 AM EDT [facility] Comment: INTERPRETIVE INFORMATION: Beta hCG, Serum Quantitation [...] reference intervals for this test in the [facility] Test Directory ([employer]). This test was developed and its performance characteristics determined by [facility]. It has not been cleared or approved by the US Food and Drug Administration. This test was performed in a CLIA certified laboratory and is intended for clinical purposes. Performed By: [facility] [address] [place] [address] Arbor Press Operator: Andrea Bell MD, PhD CLIA Number: [id number] Blood Venipuncture / Unknown 01/18/2025 12:39 PM EDT 01/18/2025 12:45 PM EDT us Edgard Bailey MD LAB BLOOD ORDERABLES Final Resul t [facility] [address] [place] [address], [facility] [phone] * Alpha Fetoprotein Tumor Marker(SENDOUT) (01/18/2025 12:39 PM EDT) Alpha Fetoprotein Tumor Marker 2 0 - 9 ng/mL 01/20/2025 3:44 PM EDT [facility] Comment: INTERPRETIVE INFORMATION: Alpha Fetoprotein Tumor Marker The [employer] [place] [facility] DxI AFP method is used. Results [...] reference intervals for this test in the [facility] Test Directory ([facility]). Performed By: [facility] [address] [place] [address] Arbor [employer] Operator: Andrea Bell MD, PhD CLIA Number: [id number] Blood Venipuncture / Unknown 01/18/2025 12:39 PM EDT 01/18/2025 12:45 PM EDT Edgard Bailey MD LAB BLOOD ORDERABLES Final Resul t [facility] [address] [phone] from Last 3 Months Insurance [facility] MEDICARE HMO Care Teams Csm Consultant Relationship Specialty Start Date End Date Lesley Gomez, CHUTE FEEDER [address] [facility] [place] [address] PCP - General Nurse Practitioner 03/09/24
--- OUTSIDE RECORDS SUMMARY | 2025-04-12 01:15 | XMS_ITS | Encounter Summary ---
Author Organization Healthcare Address [address] [id number] Care Team Providers Care Insurance And Benefits Clerk Name Role Phone GomezLesley dumont AAKASH Primary Care Provider [phone] Nolan Moeller MD Unavailable Encounter Details Date [...] any time in the past 12 m [facility], were you homeless or living in a residential (including now)? No 12/14/2024 AUDIT-C Answer Date [...] the past 12 months has th e [email or web address], gas, oil, or water company threatened to [...] documented as of this encounter Care Teams Insurance And Benefits Clerk Relationship Specialty Start Date End Date Lesley Gomez APRN [facility] [place] [address] PCP - General 12/09/20 Nolan Moeller MD [address] [place] [address] Consulting Physician Neurology 01/13/24 documented as of this encounter
--- OUTSIDE RECORDS SUMMARY | 2025-04-12 01:15 | XMS_ITS | Encounter Summary ---
Author Organization [employer] ([place], [place], [place], [place]) Address [address] [place] [address] Care Team Providers Care Councilor Name Role Phone Lesley Gomez NP Primary Care Provider [phone] Encounter Details Date Type Department Care Team (Late st Contact Info) Description 01/18/2025 Outside Orders [facility] Admitting [address] [place] [address] Edgard Bailey MD [address] [facility] [address] [place] [address] Abnormal finding (Primary Dx) Social [...] Date Rubens rded Speak language other than French at home Not on file 01/22/2024 Want [...] - 3 IU/L 01/21/2025 10:40 AM EDT [employer] Comment: INTERPRETIVE INFORMATION: Beta hCG, Serum Quantitation [...] reference intervals for this test in the [facility] Test Directory ([employer]). This test was developed and its performance characteristics determined by [facility]. It has not been cleared or approved by the US Food and Drug Administration. This test was performed in a CLIA certified laboratory and is intended for clinical purposes. Performed By: [facility] [address] [place] [address] Manager Printing: Andrea Bell MD, PhD CLIA Number: [id number] Blood Venipuncture / Unknown 01/18/2025 12:39 PM EDT 01/18/2025 12:45 PM EDT Edgard Bailey MD LAB BLOOD ORDERABLES Final Resul t [employer] [address] [place] [address], [facility] [phone] documented in this encounter Visit Diagnoses Diagnosis Abnormal finding- Primary Other nonspecific abnormal finding documented in this encounter Care Teams Councilor Relationship Specialty Start Date End Date Lesley Gomez, DIESEL DINKEY ENGINEER [address] [facility] [place] [address] PCP - General Nurse Practitioner 03/09/24 documented as of this encounter
--- OUTSIDE RECORDS SUMMARY | 2025-04-12 01:15 | XMS_ITS | Clinical Summary ---
Author Organization [facility] Address [address] [place] [address] Care Team Providers Care Garment Form Assembler Name Role Phone JasonLesley Rasheeda FINN Primary Care Provider [phone] Nolan Moeller MD Unavailable Allergies Active Allergy [...] (Xarelto) 20 MG tabletIndications :PE (pulmonary thromboembolism) ([facility]) Take 1 tablet (20 mg) by mouth 1 (one) time each day. Take with food. 30 tablet 11 3 Active famotidine (Pepcid) 20 MG tabletIndications :Nausea Take 1 tablet by mouth twice daily 180 tablet 2 4 Active omeprazole (PriLOSEC) 40 [...] mouth daily. 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 Headache, variant migraine 05/09/2016 Dyslipidemia 02/03/2016 Pulmonary embolism and infarction 10/23/2014 Esophageal reflux 10/23/2014 Fatty liver 10/23/2014 Encounters Date Type Department Care Team Description 03/09/2025 Refill [facility] [address] [place] [address] Charito Hughes APRN Dyslipidemia 02/25/2025 2:40 PM EDT Office Visit [facility] [address] [place] [address] Nava Figueredo APRN, DNP Right chronic serous otitis media (Primary Dx) 02/25/2025 Travel 02/25/2025 Refill [facility] [address] [place] [address] Lesley Gomez APRN Subacute maxillary sinusitis; Right chronic serous otitis media 01/22/2025 8:40 AM EDT Office Visit [facility] [address] [place] [address] Michelle Mix APRN Essential (primary) hypertension (Primary Dx) 01/22/2025 Travel 01/21/2025 Telephone [facility] [address] [place] [address] Lesley Gomez APRN HCN Clinical Concern/Question 01/19/2025 Refill [facility] [address] [place] [address] Lesley Gomez APRN from Last 3 Months Family History Medical [...] time in the past 12 m [facility], were you homeless or living in a [...] the past 12 months has th e [employer], gas, oil, or water company threatened to [...] Screening 1977 [facility]-Medicare Annual Wellness (AWV) 1977 [facility]-/Child/Adol SDOH Screenings 1977 [facility]-DTaP,Tdap,and Td Vaccines (1 - Tdap) 1996 [facility]-Hepatitis A Vaccines (1 of 2 - Risk 2-dose series) 1996 [facility]-Hepatitis B Vaccines (1 of 3 - 19+ 3-dose series) 1996 [facility]-Pneumococcal Vaccine: Pediatrics (0 to 5 Years) and At-Risk Patients (6 to 49 Years) (1 of 2 - PCV) 1996 CT Colonography 2022 FIT-DNA 2022 FIT 2022 FOBT 2022 Sigmoidoscopy 2022 OIM-[id number]-37 Vaccine ( - season) 2025 [facility]-Influenza Vaccine (#1) 2025 [facility]- SDOH Screenings 06/16/2025 [facility]-Adult SDOH Screenings 06/16/2025 12/14/2024 [facility]-Depression Screening 12/14/2025 12/14/2024, 11/26 [facility]-Zoster Vaccines (1 of 2) 2027 Colonoscopy 03/10/2035 03/10/2025, 03/30, 04/20/2015 [facility]-Colorectal Cancer Screening 03/10/2035 [facility]-Obesity Intervention Completed 025, 12/14/2024, 10/01/2024, Additional [...] Date/Time Associated Diagnosis Comments COLONOSCOPY EXTERNAL RESULT 03/10/2025 from Last 3 Months Results * Colonoscopy External Result (03/10/2025) Anatomical Region Laterality Modality Endoscopy Narrative 03/10/2025 Ordered by an unspecified provider. us External Provider GI PROCEDURE ORDERABLES Final Result from Last 3 Months Insurance [facility] MEDICARE Care Teams Garment Form Assembler Relationship Specialty Start Date End Date Lesley Gomez APRN [address] [place] [address] PCP - General 12/09/20 Nolan Moeller MD [address] [facility] [address] [place] [address] Consulting Physician Neurology 01/13/24
--- OUTSIDE RECORDS SUMMARY | 2025-04-12 01:15 | XMS_ITS | Encounter Summary ---
Author Organization Healthcare Address [address] [place] [address] Care Team Providers Care Hat Lining Paster Name Role Phone JasonAvinashwilber Vanessa SHORT ORDER COOK Primary Care Provider [phone] Nolan Moeller MD Unavailable Reason for Visit * Reason Comments Med Refill Encounter Details Date Type Department Care Team (Late st Contact Info) Description 03/09/2025 Refill [facility] [address] [place] [address] Charito Hughes, SHORT ORDER COOK [address] [place] [address] Dyslipidemia Social History Tobacco Use [...] place to sleep or slept in a retirement (including now)? No 02/24/2024 PHQ-9 Answer Date [...] any time in the past 12 m [facility], were you homeless or living in a retirement (including now)? No 12/14/2024 AUDIT-C Answer Date [...] Telephone Encounter - Danie Gloria, PharmD - 03/11/2025 11:50 AM EDT 1 medication(s) has been approved per [...] documented as of this encounter Care Teams Hat Lining Paster Relationship Specialty Start Date End Date Lesley Gomez APRN [address] [place] [address] PCP - General 12/09/20 Nolan Moeller MD [address] [place] [address] Consulting Physician Neurology 01/13/24 documented as of this encounter
--- OUTSIDE RECORDS SUMMARY | 2025-04-12 01:15 | XMS_ITS | Clinical Summary ---
Author Organization [facility] Address [address] [facility] [address] [place] [address] Care Team Providers Care Crime Scene Evidence Technician Name Role Phone Lesley Gomez NP Primary Care Provider [phone] Allergies Active Allergy Reactions Criticality Noted Date [...] of 3 - 19+ 3-dose series) 1996 Depression Risk Screening 07/29/2024 SDOH Screening 07/29/2024 COVID-19 Vaccine (1 - 2023-2 5 season) 2025 Influenza Vaccine (#1) 2025 Zoster Vaccines (1 [...] patient's age to complete this topic Insurance [place] Care Teams Crime Scene Evidence Technician Relationship Specialty Start Date End Date Lesley Gomez NP [address] [place] [address] PCP - General 01/24/22
--- OUTSIDE RECORDS SUMMARY | 2025-04-12 01:15 | XMS_ITS | Encounter Summary ---
Author Organization Healthcare Address [address] [id number] Care Team Providers Care Dispensing And Measuring Optician Name Role Phone Lesley Gomez SOLAR MAINTENANCE TECHNICIAN Primary Care Provider [phone] Nolan Moeller MD Unavailable Reason for Visit * Reason Onset Date Comments HCN Clinical Concern/Question 01/21/2025 Encounter Details Date Type Department Care Team (Late st Contact Info) Description 01/21/2025 Telephone [facility] Medicine [address] [place] [address] Lesley Gomez, SOLAR MAINTENANCE TECHNICIAN [address] [place] [address] HCN Clinical Concern/Question Social History [...] time in the past [address] [facility], were you homeless or [...] it refilled/ nurse call Best contact number: [phone] (mobile) Optimal time of day to reach [...] documented as of this encounter Care Teams Dispensing And Measuring Optician Relationship Specialty Start Date End Date Lesley Gomez APRN [facility] [address] [place] [address] PCP - General 12/09/20 Nolan Moeller MD [address] [place] [address] Consulting Physician Neurology 01/13/24 documented as of this encounter
--- OUTSIDE RECORDS SUMMARY | 2025-04-12 01:15 | XMS_ITS | Clinical Summary ---
[facility] Organization [facility] Address [address] [place] [address] Care Team Providers Care Tank Truck Driver Name Role Phone Lesley Gomez APRN Primary [...] Vaccine (1 - 2023-2 5 season) 2025 INFLUENZA VACCINE 04/28/2025 Pneumococcal Vaccine 0-49 Aged Out No longer eligible based on patient's age to complete this topic Insurance [facility] [place] [address] Care Teams Tank Truck Driver Relationship Specialty Start Date End Date Lesley Gomez APRN [address] [place] [address] PCP - General Family Medicine 03/02/20
--- OUTSIDE RECORDS SUMMARY | 2025-04-12 01:15 | XMS_ITS | Encounter Summary ---
Author Organization [employer] ([place], [place], [place], [place]) Address [address] [place] [address] Care Team Providers Care Steel Inspector Name Role Phone Lesley Gomez NP Primary Care Provider [phone] Reason for Referral * Ultrasound (Routine) - Closed Specialty Diagnoses / Procedures Referred By Contac t Referred To Contact Radiology Diagnoses Abnormal finding on diagnostic imaging of right testicle Procedures Ultrasound scrotum and testicles Edgard Bailey MD [address] [address] Phone: tel: fax: [facility] [address] [place] [address] Phone: tel: fax: Referral ID Status Reason Start Date Expiration Date Visits Re quested Visits Authorized [id number] Closed 03/05/2025 03/05/2026 1 1 Encounter Details Date Type Department Care Team (Late st Contact Info) Description 03/05/2025 Orders Only [facility] Urology - [facility] [address] [address] Edgard Bailey MD [address] [address] Abnormal finding on diagnostic imaging [...] Date Rubens rded Speak language other than Lao at home Not on file 01/22/2024 Want [...] documented as of this encounter Results * Ultrasound scrotum and [...] by Mya Espinoza PA-C. Edgard Bailey MD [facility] US ORDERABLES Final Result documented in this encounter Visit Diagnoses Diagnosis Abnormal finding on diagnostic imaging of right testicle- Primary Hydrocele, unspecified hydrocele type Epididymal cyst Other specified disorder of male genital organs Abnormal finding on diagnostic imaging of right testicle documented in this encounter Care Teams Steel Inspector Relationship Specialty Start Date End Date Lesley Gomez, SEAFOOD FARMER [address] [facility] [place] [address] PCP - General Nurse Practitioner 03/09/24 documented as of this encounter
--- OUTSIDE RECORDS SUMMARY | 2025-04-12 01:15 | XMS_ITS | Encounter Summary ---
Author Organization [employer] ([place], [place], [place], [place]) Address [address] [place] [address] Care Team Providers Care Clinical Secretary Name Role Phone Lesley Gomez HOT SAW OPERATOR Primary Care Provider [phone] Encounter Details Date Type Department Care Team (Late st Contact Info) Description 03/09/2024 Outside Orders [facility] Admitting [address] [place] [address] Edgard Bailey MD [address] [facility] [address] [place] [address] Social History Tobacco Use Types [...] Date Rubens rded Speak language other than Prydeinig at home Not on file 01/22/2024 Want [...] on filedocumented in this encounter Care Teams Clinical Secretary Relationship Specialty Start Date End Date Lesley Gomez, HOT SAW OPERATOR [address] [place] [address] PCP - General Nurse Practitioner 03/09/24 documented as of this encounter
--- OUTSIDE RECORDS SUMMARY | 2025-04-12 01:15 | XMS_ITS | Referral Summary ---
Author Organization [employer] ([place], [place], [place], [place]) Address [address] [place] [address] Care Team Providers Care Brickmason Contractor Name Role Phone Lesley Gomez NP Primary Care Provider [phone] Encounters Date Type Department Care Team Description 03/25/2025 10:30 AM EDT Office Visit [facility] Urology - [address] [address] Edgard Bailey MD Abnormal finding on diagnostic imaging of right testicle (Primary Dx); Hydrocele, unspecified hydrocele type; Epididymal cyst; Scrotum pain; Abnormal ultrasound; Incomplete bladder emptying 03/17/2025 10:36 AM EDT - 03/17/2025 11:59 PM EDT Hospital Encounter [facility] Ultrasound [address] [place] [address] Edgard Bailey MD Abnormal finding on diagnostic imaging of right testicle Discharge Disposition: Home or Self Care 03/16/2025 Travel 03/05/2025 Orders Only [facility] Urology - [address] [address] Edgard Bailey MD Abnormal finding on diagnostic imaging of right testicle (Primary Dx); Hydrocele, unspecified hydrocele type; Epididymal cyst 01/18/2025 Travel 01/18/2025 6:30 PM EDT Lab Patient Walk-In [facility] Lab [address] [place] [address] Edgard Bailey MD Abnormal finding 01/18/2025 Outside Orders [facility] Admitting [address] [place] [address] Edgard Bailey MD Abnormal finding (Primary Dx) 01/18/2025 6:15 PM EDT Lab Patient Walk-In [facility] Lab [address] [place] [address] Edgard Bailey MD Abnormal finding on diagnostic imaging of right testicle (Primary Dx) 01/18/2025 11:45 AM EDT Office Visit [facility] Urology - [facility] [address] [facility] [address] [place] [address] Edgard Bailey MD Hydrocele, unspecified hydrocele [...] Date Rubens rded Speak language other than Mexican at home Not on file 01/22/2024 Want [...] 03/25/2025 10:20 AM EDT Plan of Treatment Not on file Procedures Procedure Name Priority Date/Time Associated Diagnosis [...] Negative Ketones Urine, POC Negative Negative Specific [place] Urine, POC 1.020 SG Ratio 1.005 SG [...] intratesticular masses are identified. Procedure Note Korey Blevnis MD - 03/17/2025 TESTICULAR ULTRASOUND HISTORY: Abnormal [...] by Mya Espinoza PA-C. Edgard Bailey MD [facility] ORDERABLES Final Result * Beta-hCG, Serum Quant Tumor Marker(SENDOUT) (01/18/2025 12:39 PM EDT) Beta-hCG Quant Tumor Marker <1 0 - 3 IU/L 01/21/2025 10:40 AM EDT [facility] [employer] Comment: INTERPRETIVE INFORMATION: Beta hCG, Serum Quantitation [...] the specific monoclonal antibodies used in the [employer] Beta HCG electrochemiluminescent immunoassay recognize the holo-hormone, [...] reference intervals for this test in the [facility] Test Directory ([employer]). This test was developed and its performance characteristics determined by [facility]. It has not been cleared or approved by the US Food and Drug Administration. This test was performed in a CLIA certified laboratory and is intended for clinical purposes. Performed By: [facility] [address] [place], [place] [id number] Steam Oven Operator: Andrea Bell MD, PhD CLIA Number: [id number] Blood Venipuncture / Unknown 01/18/2025 12:39 PM EDT 01/18/2025 12:45 PM EDT us Edgard Bailey MD LAB BLOOD ORDERAB[place] [address], [facility] [phone] * Alpha Fetoprotein Tumor Marker(SENDOUT) (01/18/2025 12:39 PM EDT) Alpha Fetoprotein Tumor Marker 2 0 - 9 ng/mL 01/20/2025 3:44 PM EDT [employer] Comment: INTERPRETIVE INFORMATION: Alpha Fetoprotein Tumor Marker [...] reference intervals for this test in the [facility] Test Directory ([employer]). Performed By: [facility] [address] [place] [address] Steam Oven Operator: Andrea Bell MD, PhD CLIA Number: [id number] Blood Venipuncture / Unknown 01/18/2025 12:39 PM EDT 01/18/2025 12:45 PM EDT us Edgard Bailey MD LAB BLOOD ORDERABLES Final Resul t [employer] [address] [place] [address], [facility] [phone] from Last 3 Months Insurance [address] [place], [place] [id number] [place] [address] MEDICARE HMO Care Teams Brickmason Contractor Relationship Specialty Start Date End Date Lesley Gomez, GRACIA [address] [place] [address] [place] [address] PCP - General Nurse Practitioner 03/09/24
--- OUTSIDE RECORDS SUMMARY | 2025-04-12 01:15 | XMS_ITS | Encounter Summary ---
Author Organization Healthcare Address [address] [place] [address] Care Team Providers Care Traffic Control Signaler Name Role Phone Lesley Gomez AIRCRAFT PNEUDRAULICS REPAIRER Primary Care Provider [phone] Nolan Moeller MD Unavailable Reason for Visit * Reason Onset Date Comments Med Refill 02/25/2025 Encounter Details Date Type Department Care Team (Late st Contact Info) Description 02/25/2025 Refill [facility] [address] [place] [address] Lesley Gomez, AIRCRAFT PNEUDRAULICS REPAIRER [address] [place] [address] Subacute maxillary sinusitis; Right chronic [...] any time in the past 12 m [facility], were you homeless or [...] documented as of this encounter Care Teams Traffic Control Signaler Relationship Specialty Start Date End Date Lesley Gomez APRN [address] [place] [address] PCP - General 12/09/20 Nolan Moeller MD [address] [facility] [address] [place] [id number] Consulting Physician Neurology 01/13/24 documented as of this encounter
--- OUTSIDE RECORDS SUMMARY | 2025-04-12 01:15 | XMS_ITS | Encounter Summary ---
Author Organization [facility] ([place], [place], [place], [place]) Address [address] [place] [address] Care Team Providers Care Senior Mainframe Programmer Analyst Name Role Phone Lesley Gomez NP Primary Care Provider [phone] Encounter Details Date Type Department Care Team (Latest Contact Info) Description 03/16/2025 Travel Social History Tobacco Use Types Packs/Day [...] Date Rubens rded Speak language other than Turkish at home Not on file 01/22/2024 Want [...] on filedocumented in this encounter Care Teams Senior Mainframe Programmer Analyst Relationship Specialty Start Date End Date Lesley Gomez NP [address] [place] [address] [place] [address] PCP - General Nurse Practitioner 03/09/24 documented as of this encounter
--- OUTSIDE RECORDS SUMMARY | 2025-04-12 01:15 | XMS_ITS | Encounter Summary ---
Author Organization [facility] Address [address] [place] [address] Care Team Providers Care Pile Header Name Role Phone JasonLesley AAKASH Primary Care Provider [phone] Nolan Moeller MD Unavailable Reason for Referral * Genetic Testing (Routine) - Closed Specialty Diagnoses / Procedures Referred By Contac t Referred To Contact Lab Diagnoses Recurrent infections Procedures IgM Ayden Kennedy DO [address] [facility] [address] [place] [address] Phone: tel: fax: Referral ID Status Reason Start Date Expiration Date Visits Re quested Visits Authorized [id number] Closed 02/17/2024 08/18/2025 1 1 * Genetic Testing (Routine) - Closed Specialty Diagnoses / Procedures Referred By Contac t Referred To Contact Lab Diagnoses Recurrent infections Procedures IgG Ayden Kennedy DO [address] [facility] [address] [place] [address] Phone: tel: fax: Referral ID Status Reason Start Date Expiration Date Visits Re quested Visits Authorized [id number] Closed 02/17/2024 08/18/2025 1 1 * Genetic Testing (Routine) - Closed Specialty Diagnoses / Procedures Referred By Contac t Referred To Contact Lab Diagnoses Recurrent infections Procedures IgA Ayden Kennedy DO [address] [facility] [address] [place] [address] Phone: tel: fax: Referral ID Status Reason Start Date Expiration Date Visits Re quested Visits Authorized [id number] Closed 02/17/2024 08/18/2025 1 1 Encounter Details Date Type Department Care Team (Late st Contact Info) Description 02/17/2024 Community [facility] [address] [place] [address] Ayden Kennedy DO [address] [facility] [address] [place] [address] Recurrent infections (Primary Dx) Social History Tobacco [...] place to sleep or slept in a long-term (including now)? No 10/03/2023 Utilities Answer Date [...] ug/mL 02/21/2024 1:29 PM EDT [facility]) Pneumo serotype 3 IgG (P13,PNX) 0.88 ug/mL 02/21/2024 1:29 PM EDT [facility]) Pneumo serotype 4 IgG (P7,P13,PNX) 0.44 ug/mL 02/21/2024 1:29 PM EDT [facility]) Pneumo serotype 5 IgG (P13,PNX) 2.02 ug/mL 02/21/2024 1:29 PM EDT [facility]) Pneumo serotype 6B IgG (P7,P13,PNX) 1.20 ug/mL 02/21/2024 1:29 PM EDT [facility] ([facility]) Pneumo serotype 7F IgG (P13,PNX) 0.32 ug/mL 02/21/2024 1:29 PM EDT [facility] ([facility]) Pneumo serotype 8 IgG (PNX) 0.25 ug/mL 02/21/2024 1:29 PM EDT [facility] ([facility]) Pneumo serotype 9N IgG (PNX) 0.55 ug/mL 02/21/2024 1:29 PM EDT [facility] ([facility]) Pneumo serotype 9V IgG (P7,P13,PNX) 0.27 ug/mL 02/21/2024 1:29 PM EDT [facility] ([facility]) Pneumo serotype 12F IgG (PNX) 0.51 ug/mL 02/21/2024 1:29 PM EDT [facility] ([facility]) Pneumo serotype 14 IgG (P7,P13,PNX) 0.33 ug/mL 02/21/2024 1:29 PM EDT [facility] ([facility]) Pneumo serotype 18C IgG (P7,P13,PNX) 0.69 ug/mL 02/21/2024 1:29 PM EDT [facility] ([facility]) Pneumo serotype 19F IgG (P7,P13,PNX) 7.69 ug/mL 02/21/2024 1:29 PM EDT [facility] ([facility]) Pneumo serotype 23F IgG (P7,P13,PNX) 0.19 ug/mL 02/21/2024 1:29 PM EDT [facility] ([facility]) Pneumo Serotype Interpretation See Note 02/21/2024 1:29 PM EDT [facility] ([facility]) Blood Venous blood specimen / Unknown Venipuncture / Unknown 02/18/2024 7:43 AM EDT 02/18/2024 7:44 AM EDT Narrative [facility] ([facility]) - 02/21/2024 1:29 PM EDT INTERPRETIVE INFORMATION: [...] developed and its performance characteristics determined by [facility]. It has not been cleared or approved by the U.S. Food and Drug Administration. This test was performed in a CLIA-certified laboratory and is intended for clinical purposes. Performed By: [facility] [address] [place] [address] Shipping Associate: Andrea Bell MD, PhD CLIA Number: [id number] Kell Kailey Kennedy [facility] LAB BLOOD ORDERABLES Final R esult Performing Organization Address [facility] Co de Phone Number [facility]) [address] [place] [address] * Tetanus antibody, IgG (02/18/2024 7:43 AM EDT) Tetanus Antibody, IgG 2.3 IU/mL 02/20/2024 4:15 PM EDT [facility] ([place]) Serum Venous blood specimen / Unknown 02/18/2024 7:43 AM EDT 02/18/2024 7:44 AM EDT Narrative [facility]) - 02/20/2024 4:15 PM EDT INTERPRETIVE [...] developed and its performance characteristics determined by [facility]. It has not been cleared or approved by the US Food and Drug Administration. This test was performed in a CLIA certified laboratory and is intended for clinical purposes. Performed By: [facility] [address] [place], [place] [id number] Shipping Associate: Andrea Bell MD, PhD CLIA Number: [id number] Kell Kailey Kennedy LAB BLOOD ORDERABLES Final R esult Performing Organization Address [facility]/ZIP Co de Phone Number [facility] ([place]) [address] [place] [address] * IgM (02/18/2024 7:43 AM EDT) IGM 48 35 - 225 mg/dL 02/18/2024 1:21 PM EDT [facility] Blood Venous blood specimen / Unknown Venipuncture / Unknown 02/18/2024 7:43 AM EDT 02/18/2024 7:44 AM EDT [facility] LAB BLOOD ORDERABLES Final R esult Performing Organization Address City/[facility]/ZIP Co de Phone Number [facility] [address] [place] [address] * IgG (02/18/2024 7:43 AM EDT) IGG 990 720 - 1,589 mg/dL 02/18/2024 1:21 PM EDT [facility] Blood Venous blood specimen / Unknown Venipuncture / Unknown 02/18/2024 7:43 AM EDT 02/18/2024 7:44 AM EDT [facility] LAB BLOOD ORDERABLES Final R esult Performing Organization Address City/[facility] Co de Phone Number [facility] [address] [place] [address] * IgA (02/18/2024 7:43 AM EDT) IGA 381 75 - 400 mg/dL 02/18/2024 1:21 PM EDT [facility] Blood Venous blood specimen / Unknown Venipuncture / Unknown 02/18/2024 7:43 AM EDT 02/18/2024 7:44 AM EDT [facility] LAB BLOOD ORDERABLES Final R esult Performing Organization Address City/[facility]/ZIP Co de Phone Number [facility] [address] [place] [address] * CBC and differential (02/18/2024 7:43 AM EDT) WBC Count 6.89 3.70 - 10.30 10*3/uL LAB HEMATOLOGY METHOD 02/18/2024 1:12 PM EDT [facility] RBC Count 5.34 4.60 - 6.10 10*6/uL LAB HEMATOLOGY METHOD 02/18/2024 1:12 PM EDT [facility] HGB 15.8 13.7 - 17.5 g/dL LAB HEMATOLOGY METHOD 02/18/2024 1:12 PM EDT [facility] HCT 48.7 40.0 - 51.0 % LAB HEMATOLOGY METHOD 02/18/2024 1:12 PM EDT [facility] Platelet Count 296 155 - 369 10*3/uL LAB HEMATOLOGY METHOD 02/18/2024 1:12 PM EDT [facility] MCV 91 79 - 98 fL LAB HEMATOLOGY METHOD 02/18/2024 1:12 PM EDT [facility] MCH 29.6 26.0 - 32.0 pg LAB HEMATOLOGY METHOD 02/18/2024 1:12 PM EDT [facility] MCHC 32.4 30.7 - 35.5 g/dL LAB HEMATOLOGY METHOD 02/18/2024 1:12 PM EDT [facility] RDW 12.8 11.5 - 14.5 % LAB HEMATOLOGY METHOD 02/18/2024 1:12 PM EDT [facility] MPV 10.5 8.8 - 12.5 fL LAB HEMATOLOGY METHOD 02/18/2024 1:12 PM EDT [facility] nRBC 0.0 <=0.0 per 100 WBCs LAB HEMATOLOGY METHOD 02/18/2024 1:12 PM EDT [facility] Differential Type Automated LAB HEMATOLOGY METHOD 02/18/2024 1:12 PM EDT [facility] Neutrophils % 52.0 % LAB HEMATOLOGY METHOD 02/18/2024 1:12 PM EDT [facility] Lymphocytes % 33.0 % LAB HEMATOLOGY METHOD 02/18/2024 1:12 PM EDT [facility] Monocytes % 11.0 % LAB HEMATOLOGY METHOD 02/18/2024 1:12 PM EDT [facility] Eosinophils % 3.0 % LAB HEMATOLOGY METHOD 02/18/2024 1:12 PM EDT [facility] Basophils % 1.0 % LAB HEMATOLOGY METHOD 02/18/2024 1:12 PM EDT [facility] Immature Granulocytes % 0.0 % [...] ORDERABLES Final R esult [facility] [address] [place] [address] documented in this encounter Visit Diagnoses Diagnosis [...] documented as of this encounter Care Teams Pile Header Relationship Specialty Start Date End Date Lesley Gomez APRN [address] [place] [address] PCP - General 12/09/20 Nolan Moeller MD [address] [facility] [address] [place] [address] Consulting Physician Neurology 01/13/24 documented as of this encounter
[2025-04-12] MEDS: ONDANSETRON 4MG ODT 4 MG SL (01:17)
--- NOTE | 2025-04-12 01:57 | HMH.EDGENADL ---
Discharge Plan Disposition Patient Disposition: Home, Self-Care Condition: Good Prescriptions Prescriptions: No Action omeprazole 40 mg capsule,delayed release(DR/EC) 40 mg PO DAILY Patient Comments: TAKE 1 CAPSULE BY MOUTH ONCE DAILY meclizine 12.5 mg tablet 12.5 mg PO BID loratadine 10 mg capsule 10 mg PO DAILY famotidine 20 mg tablet 20 mg PO Patient Comments: TAKE 1 TABLET BY MOUTH TWICE DAILY atorvastatin 10 mg tablet 10 mg PO Patient Comments: TAKE 1 TABLET BY MOUTH ONCE DAILY fluoxetine 20 mg capsule 20 mg PO Patient Comments: TAKE 1 CAPSULE BY MOUTH ONCE DAILY cyclobenzaprine 10 mg tablet 10 mg PO Patient Comments: TAKE 1 TABLET BY MOUTH AT NIGHT NEEDED FOR MUSCLE SPASM Xarelto 20 mg tablet See Rx Instructions .ROUTE .COMPLEX Qty: 90 0RF Dose Instruction: TAKE 1 TABLET BY MOUTH ONCE DAILY IN THE EVENING WITH MEALS Rx Instructions: TAKE 1 TABLET BY MOUTH ONCE DAILY IN THE EVENING WITH MEALS candesartan 16 mg tablet 16 mg PO DAILY Qty: 30 5RF dicyclomine 20 mg tablet 20 mg PO BID hydrochlorothiazide 25 mg tablet 25 mg PO DAILY Qty: 30 3RF methocarbamol 500 mg tablet 1,000 mg PO Q6H PRN (Reason: pain) Qty: 60 0RF lidocaine 5 % adhesive patch,medicated 1 patch topical DAILY PRN (Reason: pain) Qty: 30 0RF Rx Instructions: leave on most painful area for up to 12 hrs Activity Restrictions/Add. Instructions Additional Instructions/Restrictions: You were evaluated in the ER and are believed to be appropriate for discharge at this time. Use the provided bacitracin ointment on the wound twice daily. Keep it clean and dry. You can shower/bathe like normal. Stitches can be removed in 7 days. Follow-up with your primary care doctor for reevaluation. Return to the ER with new, worsening, or otherwise concerning symptoms. Clinical Impressions Clinical Impression: Laceration of right little finger Instructions Patient Instructions: DI for Laceration Repair Print Language Print Language: Swedish Discharge ED Provider: Loyda Griffin Adult [facility] General Chief complaint: Wound/Laceration Stated complaint: laceration Time Seen by Provider: 04/12/25 00:04 Mode of Arrival: Ambulatory Source of Information: Patient Description of Symptoms (Recalled from ER Triage Doc. by RN): PT presents to the ED for evaluation of L Pinky laceration. 10 minutes prior to arrival PT stated he was washing dishes and broke a glass that cut his finger. Unknown last Tetanus vaccine. History of Present Illness HPI narrative: 49-year-old male presents to the ER for RIGHT pinky laceration. 10 minutes prior to arrival patient was washing dishes when a glass broke cutting the finger. Unclear when his last Tdap was. Patient does take blood thinners for previous PE many years ago. He states he was able to control bleeding with direct pressure. He has no numbness or weakness, no other complaints or concerns at this time. He is here for laceration repair. Related Data Home Medications ?Medication ?Instructions ?Recorded ?Confirmed loratadine 10 mg capsule 10 mg PO DAILY allergies 07/04/20 02/17/25 meclizine 12.5 mg tablet 12.5 mg PO BID Pain 07/04/20 02/17/25 omeprazole 40 mg capsule,delayed 40 mg PO DAILY GERD 07/04/20 02/17/25 release dicyclomine 20 mg tablet 20 mg PO BID stomach 09/25/24 02/17/25 atorvastatin 10 mg tablet 10 mg PO 12/01/24 02/17/25 cyclobenzaprine 10 mg tablet 10 mg PO 12/01/24 02/17/25 famotidine 20 mg tablet 20 mg PO 12/01/24 02/17/25 fluoxetine 20 mg capsule 20 mg PO 12/01/24 02/17/25 Previous Rx's ?Medication ?Instructions ?Recorded candesartan 16 mg tablet 16 mg PO DAILY #30 tabs 01/30/24 hydrochlorothiazide 25 mg tablet 25 mg PO DAILY #30 tabs 09/26/24 rivaroxaban 20 mg tablet (Xarelto) See Rx Instructions .Route 01/25/25 .COMPLEX #90 tabs lidocaine 5 % topical patch 1 patch topical DAILY PRN pain #30 03/09/25 ea methocarbamol 500 mg tablet 1,000 mg (2 x 500 mg) PO Q6H PRN 03/09/25 pain #60 tabs Allergies Allergy/AdvReac Type Severity Reaction Status Date / Time amoxicillin (AMOXICILLIN) Allergy Unknown Unknown Verified 02/17/25 14:07 allergy reaction Penicillins (PENICILLINS) Allergy Unknown Unknown Verified 02/17/25 14:07 allergy reaction PFSH PFS Disclaimer: The information contained in this section may have been updated after the patient was seen, as this information can be updated by other users. Medical History Chronic anticoagulation History of pulmonary embolism Restrictive lung disease Dyspnea on exertion Single subsegmental pulmonary embolism without acute cor pulmonale Shortness of breath Pulmonary embolism and infarction Surgical History History of esophagogastroduodenoscopy (EGD) History of colonoscopy Family History Father Cancer Social History Smoking Status: Current every day smoker tobacco type: cigarettes packs per day: 1 alcohol intake: never substance use type: marijuana current occupational status: unemployed Travel in the last 8 weeks?: None household members: children housing: house Have you lived/traveled outside US in past 30 days?: No Contact w/someone who lives/traveled outside US past 30 days?: No Exposure to someone with infectious disease in past 14 days?: No Do you have a fever (greater than 100.4 F or 38 C)?: No Have you tested positive for COVID-19?: No Exposed to someone with COVID-19 in past 14 days?: No Do you have a sore throat?: No Do you have a cough?: No Do you have any weakness?: No Do you have any diarrhea?: No Are you experiencing any unusual bleeding?: No Do you have any muscle aches/pain?: No Do you have any abdominal pain?: No Are you experiencing loss of taste or smell?: No Other Medical History Have you received the Flu Vaccine for this season: No Have you received the Pneumonia Vaccine: No ROS Obtained: Yes Systems reviewed as appropriate & no additional complaints except as documented Per HPI Physical Exam General General appearance: alert and in no apparent distress Head Head exam: atraumatic and normocephalic Eye Eye exam: Present PERRL and EOMI ENT ENT exam: Present mucous membranes moist Neck Neck exam: Present normal inspection and full ROM Chest Chest inspection: Present symmetric chest wall rise Respiratory Respiratory exam: Absent respiratory distress or stridor Cardiovascular Cardiovascular exam: Present regular rate and normal rhythm Extremities Exam Extremities exam: Present full ROM and other (1 cm flap laceration at the ulnar aspect of the right pinky crossing the DIP with no evidence of deep structure injury, neurovascularly intact) Neurological Exam Neurological exam: Present alert and oriented X3; Absent motor sensory deficit Psychiatric Psychiatric exam: Present normal affect and normal mood Skin Skin exam: Present warm and dry Medical Decision Making Medical Records Medical records reviewed: Yes I reviewed the patient's medical records. Screening: Per USPSTF and CDC recommendations, given the prevalence of disease in our region, it is our hospital?s policy to screen for HIV and viral Hepatitis for all patients aged 18 and over and those with ongoing risk factors. Yobani Inquiry Pt receiving controlled substance: No Vital Signs: 04/12/25 00:01 04/12/25 00:13 04/12/25 00:15 Temperature 98.0 F Temperature Source Oral Pulse Rate 81 82 Pulse Rate [Right] 86 Respiratory Rate 16 Blood Pressure Blood Pressure [Right Arm] 131/99 H Blood Pressure Mean Blood Pressure Mean [Right Arm] 109 Blood Pressure Position 02 Sat by Pulse Oximetry 96 96 96 Oxygen Delivery Method Room Air 04/12/25 00:18 04/12/25 00:30 04/12/25 01:00 Temperature Temperature Source Pulse Rate 83 Pulse Rate [Right] Respiratory Rate Blood Pressure 145/95 H 133/96 H Blood Pressure [Right Arm] Blood Pressure Mean 108 107 Blood Pressure Mean [Right Arm] Blood Pressure Position 02 Sat by Pulse Oximetry 97 Oxygen Delivery Method 04/12/25 01:39 Temperature 98.1 F Temperature Source Oral Pulse Rate 74 Pulse Rate [Right] Respiratory Rate 16 Blood Pressure 162/90 H Blood Pressure [Right Arm] Blood Pressure Mean Blood Pressure Mean [Right Arm] Blood Pressure Position Sitting 02 Sat by Pulse Oximetry Oxygen Delivery Method Room Air Orders (Tests/Meds): ED MEDICATIONS Discontinued Medications Generic Name Dose Route Start Last Admin Trade Name Freq PRN Reason Stop Dose Admin Bacitracin 1 gm 04/12/25 00:58 04/12/25 01:05 Bacitracin Zinc Oint 30gm Tube TP 04/12/25 00:59 1 gm ONCE ONE Administration Lidocaine HCl 5 ml 04/12/25 00:06 04/12/25 00:15 Lidocaine 1% 5ml Pf Vial IJ 04/12/25 00:07 5 ml ONCE ONE Administration Ondansetron HCl 4 mg 04/12/25 01:16 04/12/25 01:17 Ondansetron 4mg Odt SL 04/12/25 01:17 4 mg ONCE ONE Administration Tetanus/Reduced Diphtheria/Acell Pertussis 0.5 ml 04/12/25 00:06 04/12/25 00:13 Tet/Diphth/Pert-Adult 0.5ml Syringe IM 04/12/25 00:07 0.5 ml .ONCE ONE Administration Medical Decision Narrative: In summary, 49-year-old male with history of tremors, hyperlipidemia, hypertension, previous PE on anticoagulation presents to the ER with laceration to the right pinky. On initial evaluation patient is hemodynamically stable, afebrile, overall well-appearing, he has laceration on the medial aspect of the right pinky, it is a 1 cm flap. Hemostatic with pressure but if the flap is lifted it starts to ooze with slow venous bleeding. Neurovascularly intact distally. No evidence of foreign body. No evidence of underlying deep structure injury. I considered the possibility of foreign body, deep structure injury, neurovascular injury but none of these are present on exam. Patient's Tdap was updated, 1% lidocaine used for anesthetic, 4 sutures were placed for laceration repair, see procedure note for details. Bacitracin applied to the wound. Patient was given instructions on bacitracin use which was given to him for home use, wound care, follow-up, and return precautions for the ER. He indicated understanding and the patient was discharged in stable condition. Procedures Risk/Benefits of Procedure(s) Were Explained: Yes Laceration Laceration 1: Site: finger (Pinky) Side (If applicable): right Size (cm): 1 Description: flap Depth: simple, single layer Local Anesthetic: lidocaine 1% Amount of anesthesia used (mL): 4 Pre-repair: wound explored and irrigated extensively Skin layer closed with: nylon Size (cm): 4-0 Number of sutures: 4 Technique: simple, interrupted Critical Care Critical Care Time Critical Care Time: No
== END 2025-04-12 01:42 | disposition home or self-care (01) ==
PROVIDERS: Emergency Provider Emergency Medicine; PCP Nurse Practitioner Family
DX: S61.216A Laceration without foreign body of right little finger without damage to nail, initial encounter (principal); F17.210 Nicotine dependence, cigarettes, uncomplicated; E78.5 Hyperlipidemia, unspecified; I10 Essential (primary) hypertension; W25.XXXA Contact with sharp glass, initial encounter
CPT/HCPCS: 12001; 90471; 90715; 99283; 99284; J2003; Q0162